=== PATIENT | male | born 1955 | race Caucasian/White ===

== ENCOUNTER 2020-12-08 16:04 | Outpatient (REF) | payer MEDICARE, SELFPAY ==
--- NOTE | ~2020-12-08 | US_ITS ---
EXAMINATION: US VENOUS ULTRASOUND WITH DOPPLER LOWER EXTREMITY, BILATERAL CLINICAL INFORMATION: Localized edema COMPARISON: 05/11/2019 TECHNIQUE: Ultrasound of the deep veins is performed from the hip to the calf with compression sonography and color and pulse Doppler assessment. Spectral analysis with color-flow imaging is performed. FINDINGS: RIGHT: There is normal venous compression and respiratory variation and augmented flow. The visualized common femoral vein, superficial femoral vein, profunda femoral vein, popliteal vein, and the trifurcation region shows no evidence of deep venous thrombosis. There is no significant popliteal fossa cyst. There is thrombophlebitis of a superficial right calf varicosity. LEFT: There is normal venous compression and respiratory variation and augmented flow. The visualized common femoral vein, superficial femoral vein, profunda femoral vein, popliteal vein, and the trifurcation region shows no evidence of deep venous thrombosis. There is no significant popliteal fossa cyst. If the patient's symptoms persist, followup ultrasound in 5 days 7 days might be of value to exclude proximal propagation from a non-visualized calf vein. US/US venous duplex LE BI IMPRESSION: No DVT demonstrated in the bilateral lower extremities. Right calf superficial thrombophlebitis involving a varicosity.
== END 2020-12-08 16:05 | disposition home or self-care (01) ==
LOC: HO.US 16:04
PROVIDERS: PCP Internal Medicine; Visit Provider Nurse Practitioner Family
DX: R60.0 Localized edema (principal)
CPT/HCPCS: 93970

== ENCOUNTER 2020-12-24 09:43 | Outpatient (REF) | payer MEDICARE, SELFPAY ==
[2020-12-24 10:38] LABS: MANUAL DIFF FLAG NO
[2020-12-24 10:44] LABS: Basophils Percent Auto 0.3 % (0-2); Eosinophils Absolute Auto 0.2 X10*3/uL (0.0-0.4); Hematocrit 47.1 % (42-52); Hemoglobin 16.3 g/dl (14.0-18.0); Imm Gran Abs Auto 0.05 X10*3/uL (0.00-0.03); Imm Gran Pct Auto 0.8 % (0.0-0.4); Lymphocytes Absolute Auto 1.3 X10*3/uL (1.2-4.9); Lymphocytes Percent Auto 19.6 % (20-40); Mean Corpuscular HGB Conc 34.6 g/dl (31.0-36.0); Mean Corpuscular Hemoglobin 31.1 pg (27.0-33.0); Mean Corpuscular Volume 89.9 fL (80-98); Mean Platelet Volume 10.2 fL (9.4-12.4); Monocytes Absolute Auto 0.6 X10*3/uL (0.1-1.2); Monocytes Percent Auto 8.9 % (2-11); Neutrophils Absolute Auto 4.3 X10*3/uL (2.0-8.3); Neutrophils Percent Auto 67.4 % (45-73); Platelet Count 228 X10*3/uL (160-400); Red Blood Count 5.24 X10*6/uL (4.60-5.80); Red Cell Distribution Width 12.8 % (11.0-16.0); White Blood Count 6.4 X10*3/uL (4.8-10.8)
[2020-12-24 11:14] LABS: Alanine Aminotransferase 24 U/L (0-40); Albumin Level 4.5 g/dL (3.5-5.0); Alkaline Phosphatase 79 U/L (39-117); Anion Gap 9 (12-20); Aspartate Amino Transferase 17 U/L (5-37); Bilirubin Total 1.1 mg/dL (0.0-1.0); Blood Urea Nitrogen 10 mg/dL (9-16); Calcium 9.3 mg/dL (8.4-10.2); Carbon Dioxide 29 mmol/L (22-29); Chloride 104 mmol/L (96-108); Cholesterol 155 mg/dL; Estimated Glomerular Filt Rate > 60; Glucose Random 89 mg/dL (60-115); HDL Cholesterol 47 mg/dL; LDL Cholesterol Calculated 96 mg/dl; Potassium 4.3 mmol/L (3.3-5.1); Sodium 138 mmol/L (135-145); Triglycerides 64 mg/dL
[2020-12-24 11:26] LABS: Prostate Specific Antigen 3.16 ng/mL (<0.05-4.0); Thyroid Stimulating Hormone 1.62 uIU/mL (0.32-4.0)
== END 2020-12-24 09:44 | disposition home or self-care (01) ==
LOC: HO.LAB 09:43
PROVIDERS: PCP Internal Medicine; Visit Provider Internal Medicine
DX: Z12.5 Encounter for screening for malignant neoplasm of prostate (principal); N40.1 Benign prostatic hyperplasia with lower urinary tract symptoms
CPT/HCPCS: 36415; 80053; 80061; 84153; 84443; 85025

== ENCOUNTER → 2021-02-10 13:40 | Outpatient (BNVA) | payer MEDICARE, SELFPAY | PROVIDERS: PCP Internal Medicine; Visit Provider Surgery Vascular Surgery | DX: I83.12 Varicose veins of left lower extremity with inflammation (principal) | CPT/HCPCS: 99202 ==

== ENCOUNTER → 2021-02-17 08:56 | Outpatient (BNVA) | payer MEDICARE, SELFPAY | PROVIDERS: PCP Internal Medicine; Referring Provider Internal Medicine; Visit Provider Urology | DX: N20.0 Calculus of kidney (principal); N40.0 Benign prostatic hyperplasia without lower urinary tract symptoms | CPT/HCPCS: 51798; 99212 ==

== ENCOUNTER 2021-03-14 08:02 | Outpatient (REF) | payer MEDICARE, SELFPAY ==
--- NOTE | ~2021-03-14 | US_ITS ---
: EXAMINATION: RIGHT and LEFT LOWER EXTREMITY VENOUS ULTRASOUND (Reflux Exam) CLINICAL INDICATION: leg pain and varicose veins. COMPARISON: None. TECHNIQUE: Color flow triplex imaging and compression Doppler was performed to evaluate both the deep and the superficial systems bilaterally. To evaluate the superficial system, the examination was performed in the upright position. Color-flow Doppler ultrasound and compression ultrasound were utilized. In addition, maneuvers were utilized to demonstrate reflux. FINDINGS: 1. DEEP VENOUS ULTRASOUND OF THE RIGHT LOWER EXTREMITY: Respiratory variation, normal compression and augmented flow are noted in the right common femoral vein as well as the right popliteal vein and there is no evidence of deep venous thrombosis at these locations. There is no evidence of reflux in the deep system in either the common femoral vein or the popliteal vein. There is no evidence of a López's cyst. 2. SUPERFICIAL ULTRASOUND WITH DOPPLER OF RIGHT LOWER EXTREMITY: The right great saphenous vein at the saphenofemoral junction measures 7 mm, at the mid thigh 2 mm, [id number] 3 mm, bcqup-[id number]-uqfl 3 mm, at mid calf 2 mm and at the ankle measures 2 mm. There is a 2.9 seconds reflux in the and 3.2 seconds reflux in mid calf demonstrated in the right great saphenous vein. There is a lateral accessory greater saphenous vein that measures 3 mm and does not demonstrate reflux. The right small saphenous vein measures 3 mm and shows no reflux. There is a environmental monitoring technician in the proximal calf that measures 3 mm and does not demonstrate reflux. There are small varicosities that do not demonstrate reflux. 3. DEEP VENOUS ULTRASOUND OF THE LEFT LOWER EXTREMITY: Respiratory variation, normal compression and augmented flow are noted in the left common femoral vein as well as the left popliteal vein and there is no evidence of deep venous thrombosis at these locations. There is no evidence of reflux in the deep system in either the common femoral vein or the popliteal vein. . There is no evidence of a López's cyst. 4. SUPERFICIAL ULTRASOUND WITH DOPPLER OF LEFT LOWER EXTREMITY: Left great saphenous vein at the saphenofemoral junction measures 6 mm, at the mid thigh 3 mm, phbzb-mmx-ehku 2 mm, jchpg-mmh-mrtq 2 mm, at mid calf 2 mm and at the ankle measures 3 mm. There is no reflux demonstrated in the left great saphenous vein. The left small saphenous vein measures 3 mm and shows no reflux. There is a environmental monitoring technician in the mid thigh that measures 1 mm and does not demonstrate reflux. There are small varicosities that do not demonstrate reflux. US/US venous duplex LE BI IMPRESSION: 1. No evidence of reflux or thrombus in the common femoral veins or popliteal veins bilaterally. 2. Right greater saphenous vein reflux. No left greater saphenous vein reflux seen.
== END 2021-03-14 08:03 | disposition home or self-care (01) ==
LOC: HO.US 08:02
PROVIDERS: Visit Provider Surgery Vascular Surgery
DX: I83.893 Varicose veins of bilateral lower extremities with other complications (principal)
CPT/HCPCS: 93970

== ENCOUNTER → 2021-03-17 09:22 | Outpatient (BNVA) | payer MEDICARE, SELFPAY | PROVIDERS: PCP Internal Medicine; Visit Provider Surgery Vascular Surgery | DX: I83.12 Varicose veins of left lower extremity with inflammation (principal) | CPT/HCPCS: 99212 ==

== ENCOUNTER 2021-06-07 11:46 | Outpatient (REF) | payer MEDICARE, SELFPAY | END 2021-06-07 11:47 | disposition home or self-care (01) | LOC: HO.WFDLDS 11:46 | PROVIDERS: Visit Provider Internal Medicine | DX: Z20.822 Contact with and (suspected) exposure to COVID-19 (principal) | CPT/HCPCS: C9803; U0003; U0005 ==

== ENCOUNTER 2021-07-25 08:08 | Outpatient (REF) | payer MEDICARE, SELFPAY ==
--- NOTE | ~2021-07-25 | US_ITS ---
EXAMINATION: US RETROPERITONEAL LIMITED (RENAL ONLY) CLINICAL INFORMATION: Calculus of kidney. COMPARISON: Renal ultrasound 01/29/2020 and 01/23/2019. CT abdomen and pelvis 03/18/2012. TECHNIQUE: Real-time imaging of the kidneys. FINDINGS: RIGHT KIDNEY: 9.0 x 5.5 x 5.2 cm (SAG x AP x TRV). The kidney is normal in size, contour, and echogenicity. Renal cortical thickness is normal. No renal calculi or hydronephrosis. There is a 1.2 cm simple cysts exophytic from the interpolar cortex. This is benign and requires no further follow-up. LEFT KIDNEY: 10.0 x 5.3 x 4.8 cm (SAG x AP x TRV). The kidney is normal in size, contour, and echogenicity. Renal cortical thickness is normal. No calculi or focal parenchymal lesions. No hydronephrosis. US/US renal BI IMPRESSION: No urinary calculi are radiographically evident. No hydronephrosis.
== END 2021-07-25 08:09 | disposition home or self-care (01) ==
LOC: HO.US 08:08
PROVIDERS: PCP Internal Medicine; Visit Provider Urology
DX: N20.0 Calculus of kidney (principal)
CPT/HCPCS: 76775

== ENCOUNTER → 2021-08-25 09:08 | Outpatient (BNVA) | payer MEDICARE, SELFPAY | PROVIDERS: PCP Internal Medicine; Visit Provider Urology | DX: N20.0 Calculus of kidney (principal); N40.0 Benign prostatic hyperplasia without lower urinary tract symptoms | CPT/HCPCS: 51798; 99212 ==

== ENCOUNTER → 2021-12-29 14:43 | Outpatient (BNVA) | payer MEDICARE, SELFPAY | PROVIDERS: PCP Internal Medicine; Referring Provider Internal Medicine; Visit Provider Surgery | DX: K42.9 Umbilical hernia without obstruction or gangrene (principal) | CPT/HCPCS: 99202 ==

== ENCOUNTER 2022-03-29 07:40 | Outpatient (REF) | payer MEDICARE, SELFPAY ==
[2022-03-29 07:54] LABS: MANUAL DIFF FLAG NO
[2022-03-29 08:30] LABS: Basophils Percent Auto 0.5 % (0-2); Eosinophils Absolute Auto 0.3 X10*3/uL (0.0-0.4); Eosinophils Percent Auto 4.1 % (0-4); Hematocrit 46.8 % (42.0-52.0); Hemoglobin 16.4 g/dl (14.0-18.0); Imm Gran Abs Auto 0.03 X10*3/uL (0.00-0.03); Imm Gran Pct Auto 0.5 % (0.0-0.4); Lymphocytes Absolute Auto 1.7 X10*3/uL (1.2-4.9); Mean Corpuscular Hemoglobin 30.8 pg (27.0-33.0); Mean Corpuscular Volume 87.8 fL (80.0-98.0); Mean Platelet Volume 9.8 fL (9.4-12.4); Monocytes Absolute Auto 0.7 X10*3/uL (0.1-1.2); Monocytes Percent Auto 10.3 % (2-11); Neutrophils Absolute Auto 3.7 x10*3/uL (2.0-8.3); Neutrophils Percent Auto 58.6 % (45-73); Platelet Count 208 X10*3/uL (160-400); Red Blood Count 5.33 X10*6/uL (4.60-5.80); Red Cell Distribution Width 12.8 % (11.0-16.0); White Blood Count 6.3 X10*3/uL (4.8-10.8)
[2022-03-29 08:48] LABS: Alanine Aminotransferase 27 U/L (0-40); Albumin Level 4.5 g/dL (3.5-5.0); Alkaline Phosphatase 70 U/L (39-117); Anion Gap 15 (12-20); Aspartate Amino Transferase 22 U/L (5-37); Bilirubin Total 1.2 mg/dL (0.0-1.0); Blood Urea Nitrogen 13 mg/dL (9-16); Calcium 8.8 mg/dL (8.4-10.2); Carbon Dioxide 26 mmol/L (22-29); Chloride 104 mmol/L (96-108); Cholesterol 184 mg/dL; Estimated Glomerular Filt Rate > 60; Glucose Fasting 89 mg/dL (60-99); HDL Cholesterol 51 mg/dL; LDL Cholesterol Calculated 118 mg/dl; Sodium 141 mmol/L (135-145); Total Protein 7.2 g/dL (6.5-8.0); Triglycerides 76 mg/dL
[2022-03-29 09:12] LABS: PSA,Total (Free>4and<10) 2.98 ng/mL (0.00-4.00); Vitamin D 25-OH Total 18.5 ng/mL (>30)
== END 2022-03-29 07:41 | disposition home or self-care (01) ==
LOC: HO.LAB 07:40
PROVIDERS: Absent Provider Urology; PCP Internal Medicine; Visit Provider Internal Medicine
DX: Z00.00 Encounter for general adult medical examination without abnormal findings (principal); Z12.5 Encounter for screening for malignant neoplasm of prostate; N40.1 Benign prostatic hyperplasia with lower urinary tract symptoms; E66.09 Other obesity due to excess calories; Z68.32 Body mass index [BMI] 32.0-32.9, adult
CPT/HCPCS: 36415; 80053; 80061; 82306; 84153; 84443; 85025

== ENCOUNTER 2022-04-03 14:20 | Outpatient (REF) | payer MEDICARE, SELFPAY ==
--- NOTE | ~2022-04-03 | US_ITS ---
EXAMINATION: US VENOUS ULTRASOUND WITH DOPPLER LOWER EXTREMITY, RIGHT CLINICAL INFORMATION: Confusion fusion of right lower leg. On aspirin. COMPARISON: None TECHNIQUE: Ultrasound of the deep veins is performed from the hip to the calf with compression sonography and color and pulse Doppler assessment. Spectral analysis with color-flow imaging is performed. FINDINGS: There is normal venous compression and respiratory variation and augmented flow. The visualized common femoral vein, superficial femoral vein, profunda femoral vein, popliteal vein, and the trifurcation region shows no evidence of deep venous thrombosis. There is no significant popliteal fossa cyst. There is a small hematoma along the right medial ankle where patient complains of pain. It measures 2.11 x 0.7 x 2.5 cm. If the patient's symptoms persist, followup ultrasound in 5 days 7 days might be of value to exclude proximal propagation from a non-visualized calf vein. US/US venous duplex LE RT IMPRESSION: No DVT demonstrated in the right lower extremity. Likely small hematoma along the right ankle where patient complains of pain.
== END 2022-04-03 14:21 | disposition home or self-care (01) ==
LOC: HO.US 14:20
PROVIDERS: PCP Internal Medicine; Visit Provider Nurse Practitioner Family
DX: S90.31XA Contusion of right foot, initial encounter (principal); M79.661 Pain in right lower leg; M79.89 Other specified soft tissue disorders; X58.XXXA Exposure to other specified factors, initial encounter; Y93.9 Activity, unspecified; Y92.9 Unspecified place or not applicable; Y99.9 Unspecified external cause status; Z79.82 Long term (current) use of aspirin
CPT/HCPCS: 93971

== ENCOUNTER → 2022-04-07 11:42 | Outpatient (BNVA) | payer MEDICARE, SELFPAY | PROVIDERS: PCP Internal Medicine; Visit Provider Urology | DX: N40.1 Benign prostatic hyperplasia with lower urinary tract symptoms (principal); R33.8 Other retention of urine; N28.1 Cyst of kidney, acquired | CPT/HCPCS: 51798; 99212 ==

== ENCOUNTER 2022-04-21 07:24 | Outpatient (REF) | payer MEDICARE, SELFPAY ==
--- NOTE | ~2022-04-21 | MR_ITS ---
EXAMINATION: MR LUMBAR SPINE WITHOUT CONTRAST CLINICAL INFORMATION: Scoliosis. Low back pain. COMPARISON: CT abdomen and pelvis 03/18/2012. TECHNIQUE: MRI of the lumbar spine was obtained using routine sequences without contrast. 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 The L3 vertebral segment has 2 left moieties that are fused. Consequently there is a pronounced leftward convex curvature centered at L2-L3. There is a 0.7 cm left lateral subluxation of L4 on L5. Slight right lateral subluxation of L1 on L2. Bridging bone fuses the L2 and L3 vertebral segments. There is loss of intervertebral disc height and T2 signal intensity at multiple levels related to disc degeneration. The tip of the conus medullaris is located at L2. No mass effect on the conus. Visualized distal cord signal intensity is normal. At T12-L1 there is a slightly bulging disc. Bilateral facet degenerative change. No canal stenosis. Neuroforaminal patency is not well assessed at this level. At L1-L2 there is a slightly bulging disc. No canal stenosis. There is partial effacement of perineural fat with no more than mild mass effect on the right L2 foraminal nerve root. At L2-L3 is no canal or neuroforaminal compromise. The nerve roots of the cauda equina are displaced to the right side of the thecal sac. No mass effect on the traversing or foraminal nerve roots. There is also no mass effect on the nerve root exiting the foraminal zone between both left L3 pedicles. At L3-L4 there is a diffusely bulging disc. No canal stenosis. No mass effect on the traversing or foraminal nerve roots. At L4-L5 there is a diffusely bulging disc. Bilateral facet degenerative change. Moderate canal stenosis. Subarticular zone narrowing causes displacement and possible compression of both traversing L5 nerve roots. There is moderate to severe compression of the right L4 foraminal nerve root and mild mass effect on the left L4 foraminal nerve root. At L5-S1 there is a diffusely bulging disc. Advanced bilateral facet degenerative change. No canal stenosis. Moderate to severe compression of the left L5 foraminal nerve root. Limited visualization of the retroperitoneal anatomy reveals no abnormal finding. 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 The left vertebral segment has to the left moieties are fused. Consequently there is a pronounced leftward convex curvature centered at L2-L3. Left lateral subluxation of L4 on L5. There is multilevel degenerative spondylosis superimposed upon these findings. A bulging disc in conjunction with facet degenerative change at L4-L5 causes moderate canal stenosis. Otherwise no canal compromise within the lumbar spine. Subarticular zone narrowing at L4-L5 causes displacement and possible compression of both traversing L5 nerve roots. There is also moderate to severe compression of the right L4 foraminal nerve root. A bulging disc in conjunction with facet degenerative change at L5-S1 causes moderate to severe compression of the left L5 foraminal nerve root.
== END 2022-04-21 07:25 | disposition home or self-care (01) ==
LOC: HO.MRI 07:24
PROVIDERS: Visit Provider Internal Medicine
DX: M41.25 Other idiopathic scoliosis, thoracolumbar region (principal); N40.1 Benign prostatic hyperplasia with lower urinary tract symptoms
CPT/HCPCS: 72148

== ENCOUNTER → 2022-07-11 09:21 | Outpatient (BNVA) | payer MEDICARE, SELFPAY | PROVIDERS: PCP Internal Medicine; Visit Provider Urology | DX: N40.1 Benign prostatic hyperplasia with lower urinary tract symptoms (principal); R33.8 Other retention of urine; R39.14 Feeling of incomplete bladder emptying; N20.0 Calculus of kidney | CPT/HCPCS: 51798; 99212 ==

== ENCOUNTER 2022-09-15 09:16 | Day surgery (SDC) | payer MEDICARE, SELFPAY ==
[2022-09-15 09:29] VITALS: BMI 27.4
[2022-09-15 09:45] VITALS: BP 145/87; PULSE 85; RESP 16; TEMP 36.6; O2SAT 97
[2022-09-15] MEDS: Lactated Ringers 1,000 ML 50 ML IVCONT (09:52)
--- NOTE | 2022-09-15 09:54 | HO.ANESPROP2 ---
[facility] Active Problems Active Problems: All Active Problems (Updated 09/15/22 @ 09:27 by Naheed Apodaca RN) Leg edema (Acute) Varicose veins of left lower extremity with inflammation (Acute) Umbilical hernia (Acute) Hematoma of right lower leg (Acute) Urinary retention with incomplete bladder emptying (Acute) Renal stones (Acute) BPH (benign prostatic hyperplasia) (Acute) Past Medical History Medical History BPH (benign prostatic hyperplasia) Diverticulosis History of pulmonary embolism Hx of peripheral vascular disease Increased prostate specific antigen (PSA) velocity Other obstructive and reflux uropathy Renal stones Scoliosis Viral pericarditis Family History Family History Father No problems noted. Mother No problems noted. Brother No problems noted. Daughter No problems noted. Daughter No problems noted. Surgical History Surgical History H/O colonoscopy H/O removal of cyst History of tonsillectomy and adenoidectomy Hx of vasectomy [place] teeth extracted History of Problems with Anesthesia: No Social History Social History Alcohol intake: current Patient Tobacco Use Status: Former Tobacco user Quit Date: as a teen Use of substances other than those prescribed or required for medical reasons: No Are you DNR?: No Advance Directives: No Advance Directives Information Provided: Yes Meds Allergies Allergy/AdvReac Type Severity Reaction Status Date / Time indomethacin [From INDOCIN] Allergy Intermediate Confusion Verified 09/15/22 09:29 Sulfa (Sulfonamide Allergy Unknown RASH Verified 09/15/22 09:29 Antibiotics) tamsulosin [Flomax] AdvReac Unknown swelling Verified 09/15/22 09:29 Active Medications: Current Medications Lactated Ringer's (Lr) 1,000 mls @ 50 mls/hr IVCONT .Q20H PAUL Last Admin: 09/15/22 09:52 Dose: 50 mls/hr Home Medications Medication Instructions Recorded Confirmed Last Taken Type aspirin 81 mg tablet,delayed 81 mg PO DAILY 04/03/22 09/15/22 Unknown History release multivitamin 1 tab PO DAILY 04/03/22 09/15/22 Unknown History ofloxacin 0.3 % eye drops 1 drp ophthalmic (eye) QID 09/14/22 09/15/22 Unknown History Exam Exam Date and Time: September 15, 2022 0954 Height,Weight and Vital Signs: Height 5 ft 2 in Weight 68.039 kg Last Vital Signs Temp 97.8 F 09/15/22 09:45 Pulse 85 09/15/22 09:45 Resp 16 09/15/22 09:45 BP 145/87 H 09/15/22 09:45 Pulse Ox 97 09/15/22 09:45 O2 Del Method 09/15/22 09:45 Airway Mallampati Class: III TM Dist: >3cm Loose/Missing/Broken Teeth: No Heart: RRR Lungs: CTA Assessment and Plan Assessment Anesthesia Assessment: Anesthesia Plan Discussed and Chart Reviewed Final Anesthetic Review History of Problems with Anesthesia: No NPO: Yes ASA Class: II Final Preanesthetic Review: Meds/Allgs Chart Reviewed, Consent Obtained/Reviewed and Anes Risks/Benef Reviewed Patient Risk: Low Procedure Risk: Low Anesthetic Plan Anesthetic Plan: MAC: Disposition: Standard PACU
--- NOTE | 2022-09-15 10:19 | MHC.SHP ---
Pre-Procedural Eval Section A Date of Service: 09/15/22 Section B Chief Complaint: screening Details of Present Illness: see H*P no changes Relevant Family History (Specify if Yes): No Relevant Social History: None Present Medications: see Short Stay Collaborative assessment Medical History: No relevant PMH History of Previous Operations: No relevant previous surgery Allergies: Allergies Allergy/AdvReac Type Severity Reaction Status Date / Time indomethacin [From INDOCIN] Allergy Intermediate Confusion Verified 09/15/22 09:29 Sulfa (Sulfonamide Allergy Unknown RASH Verified 09/15/22 09:29 Antibiotics) tamsulosin [Flomax] AdvReac Unknown swelling Verified 09/15/22 09:29 Review of Systems Sugical H&P ROS: Negative: Constitution, Cardiovascular, Respiratory, Neurological, Psychiatric, Hem-Onc, Allergic/Immunologic, Gastrointestinal, Genitourinary, Musculoskeletal, Integumentary, Endocrine and Eyes/Ears/Nose/Throat Exam Surgical H&P Exam: Normal: HEENT, Normal: Heart, Normal: Lungs, Normal: Extremities, Normal: Abdomen, Normal: Skin and Normal: Neurological Plan Diagnosis/Plan: Unchanged I have reviewed the history and physical and performed a pertinent physical examination on my patient. No changes have occurred unless specified. Time Spent With Patient Time: Total time managing care of this patient today ____ minutes.
--- NOTE | 2022-09-15 10:54 | P.BOP_ITS ---
Brief Operative Note Date of Service: 09/15/22 Pre-op diagnosis: screening Post-op diagnosis: same Procedure: colonoscopy Surgeon: Jaycob Uribe Anesthesia: MAC Was an [employer] Equipment Operator used for this Procedure?: No Estimated blood loss (mL): 5 Pathology: other Condition: stable Disposition: PACU
[2022-09-15 10:56] VITALS: BP 101/63; PULSE 81; RESP 20; TEMP 36.7; O2SAT 98
[2022-09-15 11:11] VITALS: BP 97/64; PULSE 77; RESP 20; TEMP 36.5; O2SAT 97
[2022-09-15 11:26] VITALS: BP 132/77; PULSE 78; RESP 19; TEMP 36.6; O2SAT 96
--- NOTE | 2022-09-15 11:39 | OP_ITS ---
SURGEON: Jaycob Uribe MD INDICATIONS: Colon cancer screening. PREOPERATIVE DIAGNOSIS: POSTOPERATIVE DIAGNOSIS: PROCEDURE PERFORMED: Colonoscopy to the terminal ileum with biopsy. ESTIMATED BLOOD LOSS: COMPLICATIONS: ANESTHESIA: Monitored anesthesia care. ASSISTANTS: SPECIMENS: DESCRIPTION OF PROCEDURE: The procedure was performed on 09/15/2022. A history and physical was performed. The risks and benefits of the procedure were explained to the patient, and informed consent was obtained. The patient was placed in the left lateral decubitus position. A digital rectal exam was performed and was found to be normal. The Olympus pediatric video colonoscope was introduced into the rectum and advanced to the cecum without difficulty. The cecum was identified by translumination, palpation, and identification of the ileocecal valve. Examination was performed. The scope was removed. He tolerated the procedure well and was returned to the recovery area in stable condition. FINDINGS: The terminal ileum was examined and appeared normal. The visualized colonic mucosa was normal. There were 3 polyps were identified and removed using a biopsy forceps. All were less than 10 mm. These were located in the cecum at 60 cm and at 55 cm. No other polyps were identified. Retroflexed examination showed some small internal hemorrhoids. There was mild sigmoid diverticulosis. The prep was excellent. IMPRESSION: Colon polyp. RECOMMENDATIONS: Follow up the biopsy results. MD TAYLOR Panda/SHANNAN / [id number] MTDD
[2022-09-15 11:40] VITALS: BP 132/77; PULSE 78; RESP 19; TEMP 36.6; O2SAT 96
== END 2022-09-15 12:00 | disposition home or self-care (01) ==
PROVIDERS: PCP Internal Medicine; Visit Provider Internal Medicine Gastroenterology
PROC: 0DJD8ZZ Inspection of Lower Intestinal Tract, Via Natural or Artificial Opening Endoscopic (ICD-10-PCS; CPT 45378; principal; 2022-09-15 10:20)
DX: Z12.11 Encounter for screening for malignant neoplasm of colon (principal); Z86.010 Personal history of colon polyps; D12.0 Benign neoplasm of cecum; D12.4 Benign neoplasm of descending colon; D12.5 Benign neoplasm of sigmoid colon; K57.30 Diverticulosis of large intestine without perforation or abscess without bleeding; K64.8 Other hemorrhoids; N40.1 Benign prostatic hyperplasia with lower urinary tract symptoms; R33.8 Other retention of urine; I25.10 Atherosclerotic heart disease of native coronary artery without angina pectoris; Z86.711 Personal history of pulmonary embolism; M41.9 Scoliosis, unspecified; Z79.82 Long term (current) use of aspirin; Z79.899 Other long term (current) drug therapy
CPT/HCPCS: 45380; 88305

== ENCOUNTER 2023-01-11 07:35 | Outpatient (REF) | payer MEDICARE, SELFPAY ==
--- NOTE | ~2023-01-11 | CT_ITS ---
CT SINUS WITHOUT CONTRAST CLINICAL INFORMATION: Nasal cavity polyp. Deviated nasal septum. COMPARISON: None available. TECHNIQUE: A multidetector CT acquisition of the sinuses is obtained without contrast. Multiplanar reformats are acquired and utilized for image interpretation. This CT examination was performed using dose optimization techniques as appropriate, variously including the following: *Automated exposure control *Adjustment of mA and/or kV according to patient size (this includes techniques or standardized protocols for targeted exams where dose is matched to indication/reason for exam; i.e. extremities or head) *Use of iterative reconstruction technique FINDINGS: There is a single completely opacified posterior right ethmoid air cell. There is mild mucosal thickening throughout the remaining paranasal sinuses. There is mild mucosal thickening within the inferior maxillary sinuses bilaterally. The remaining paranasal sinuses are clear. Major sinus strange pathways are maintained. There is rightward deviation of the nasal septum. The right fovea ethmoidalis is 3 mm deeper than the left side. Olfactory grooves are symmetric in depth. Bony orbits are intact. Internal carotid arteries are well covered with bone. Moderate right mastoid effusion. Left mastoid air cells are clear. TMJs are unremarkable. No periapical disease. No significant soft tissue findings. CT/CT sinus wo IV con IMPRESSION: - There is a single completely opacified posterior right ethmoid air cell and there is additional mild sinus mucosal disease as described. - There is rightward deviation of the nasal septum. - Moderate right mastoid effusion.
== END 2023-01-11 07:36 | disposition home or self-care (01) ==
LOC: HO.CT 07:35
PROVIDERS: PCP Internal Medicine; Visit Provider Otolaryngology
DX: J33.0 Polyp of nasal cavity (principal); J34.2 Deviated nasal septum
CPT/HCPCS: 70486

== ENCOUNTER → 2023-01-12 08:50 | Outpatient (BNVA) | payer MEDICARE, SELFPAY | PROVIDERS: PCP Internal Medicine; Visit Provider Urology | DX: N40.1 Benign prostatic hyperplasia with lower urinary tract symptoms (principal); R33.8 Other retention of urine; R39.14 Feeling of incomplete bladder emptying | CPT/HCPCS: 51798; 99212 ==

== ENCOUNTER 2023-05-01 12:09 | Outpatient (REF) | payer MEDICARE, SELFPAY ==
[2023-05-01 12:31] LABS: MANUAL DIFF FLAG NO
[2023-05-01 12:56] LABS: Basophils Percent Auto 0.3 % (0-2); Eosinophils Absolute Auto 0.2 X10*3/uL (0.0-0.4); Eosinophils Percent Auto 2.7 % (0-4); Hematocrit 47.4 % (42.0-52.0); Hemoglobin 16.6 g/dl (14.0-18.0); Imm Gran Abs Auto 0.04 X10*3/uL (0.00-0.03); Imm Gran Pct Auto 0.6 % (0.0-0.4); Lymphocytes Absolute Auto 1.2 X10*3/uL (1.2-4.9); Lymphocytes Percent Auto 18.8 % (20-40); Mean Corpuscular Hemoglobin 31.4 pg (27.0-33.0); Mean Corpuscular Volume 89.6 fL (80.0-98.0); Mean Platelet Volume 10.3 fL (9.4-12.4); Monocytes Absolute Auto 0.6 X10*3/uL (0.1-1.2); Monocytes Percent Auto 9.1 % (2-11); Neutrophils Absolute Auto 4.5 x10*3/uL (2.0-8.3); Neutrophils Percent Auto 68.5 % (45-73); Platelet Count 203 X10*3/uL (160-400); Red Blood Count 5.29 X10*6/uL (4.60-5.80); White Blood Count 6.6 X10*3/uL (4.8-10.8)
[2023-05-01 14:15] LABS: Alanine Aminotransferase 18 U/L (0-40); Albumin Level 4.4 g/dL (3.5-5.0); Alkaline Phosphatase 65 U/L (39-117); Anion Gap 12 (12-20); Aspartate Amino Transferase 18 U/L (5-37); Bilirubin Total 1.6 mg/dL (0.0-1.0); Blood Urea Nitrogen 12 mg/dL (9-16); Calcium 9.2 mg/dL (8.4-10.2); Carbon Dioxide 27 mmol/L (22-29); Chloride 105 mmol/L (96-108); Cholesterol 166 mg/dL (<200); Estimated Glomerular Filt Rate > 60; Glucose Fasting 83 mg/dL (60-99); HDL Cholesterol 53 mg/dL (>40); LDL Cholesterol Calculated 99 mg/dL (<100); Potassium 4.2 mmol/L (3.3-5.1); Sodium 140 mmol/L (135-145); Total Protein 7.1 g/dL (6.5-8.0); Triglycerides 73 mg/dL (<150)
[2023-05-01 14:36] LABS: Thyroid Stimulating Hormone 1.39 uIU/mL (0.32-4.0); Vitamin D 25-OH Total 30.9 ng/mL (>30)
== END 2023-05-01 12:10 | disposition home or self-care (01) ==
LOC: HO.LAB 12:09
PROVIDERS: PCP Internal Medicine; Visit Provider Internal Medicine
DX: M41.25 Other idiopathic scoliosis, thoracolumbar region (principal); E55.9 Vitamin D deficiency, unspecified; N40.1 Benign prostatic hyperplasia with lower urinary tract symptoms; E66.09 Other obesity due to excess calories; Z12.5 Encounter for screening for malignant neoplasm of prostate
CPT/HCPCS: 36415; 80053; 80061; 82306; 84153; 84443; 85025

== ENCOUNTER 2023-07-13 09:32 | Outpatient (AMB) | payer MEDICARE, SELFPAY ==
--- NOTE | 2023-07-13 09:35 | A.OFFVIS_ITS ---
Intake Intake Visit Reasons: 6m/PVR Intake Note: Patient is Present for Follow Up Urology Medication: rapaflo Antibiotic Allergies: Sulfa Blood Thinners: Aspirin PVR: 568 Compliants: Allergies indomethacin [From INDOCIN] Allergy (Intermediate, Verified 07/13/23 09:36) Confusion Sulfa (Sulfonamide Antibiotics) Allergy (Unknown, Verified 07/13/23 09:36) RASH tamsulosin [Flomax] Adverse Reaction (Unknown, Verified 07/13/23 09:36) swelling HPI HPI Comments History of Present Illness Details Adan is a very pleasant male. He is a patient of Dr. Bennett. He is seen for following urologic conditions. - BPH - nephrolithiasis Bladder residual stable and high - associated with constipation Use add Rapaflo periodically to assist with bladder emptying 6 month bladder surveillance Things have improved with physical therapy He understands his bladder has high residual than typical. CIC has been discussed previously. Recent MRI on spine shows scoliosis with compression in the L3 through L5 range. Is back undergoing chiropractic manipulation with some improvement in bladder emptying. PVR today 550 cc Lower urinary tract symptoms longstanding management previous prostate procedures had Botox to prostate 2014 - for urge/frequency has a consistently high bladder residual does feels his stream is adequate PVR 03/02 700, 09/03 750 PSA 01/30 2.9, 12/31 3.2, 04/03 3.0 continues to use Rapaflo as needed on a p.r.n. basis for 3-4 days Nephrolithiasis previously renal cyst on ultrasound Imaging - 08/02 renal ultrasound left cyst 1.5 c m continue surveillance PFSH Medical History Hx of peripheral vascular disease Viral pericarditis Diverticulosis Scoliosis BPH (benign prostatic hyperplasia) Other obstructive and reflux uropathy Renal stones History of pulmonary embolism Increased prostate specific antigen (PSA) velocity Surgical History H/O colonoscopy Hx of vasectomy H/O removal of cyst [place] teeth extracted History of tonsillectomy and adenoidectomy Family History Father No problems noted. Mother No problems noted. Brother No problems noted. Daughter No problems noted. Daughter No problems noted. Social History Alcohol intake: current Patient Tobacco Use Status: Former Tobacco user Quit Date: as a teen Review of Systems Const Denies chills and Denies fever(s) Card Reports no additional complaints and Denies syncope Resp Denies cough GI Denies abdominal pain and Denies heartburn Reports as per HPI and Denies change in libido Neuro Denies syncope Psych Denies change in libido Endo Denies change in libido Physical Exam Const General: cooperative, healthy appearing, comfortable and no acute distress Orientation/consciousness: patient oriented x3 HEENT Face and sinus: Yes normal facial exam Mouth: moist mucous membranes Neck Neck: Yes normal visual inspection, Yes full ROM and Yes trachea midline Chest Chest palpation & inspection: normal inspection of the chest Resp Effort & Inspection: normal respiratory effort, able to speak in complete sentences and no respiratory distress GI Inspection: Yes normal to inspection Back/Spine/Pelvis Cervical Spine: normal cervical lordosis Thoracic/Lumbar Spine: thoracic and lumbar spine normal to inspection Skin General skin exam: no rashes or lesions noted Neuro General: patient oriented x3, gait normal, tone normal and moves all extremities Extrem General: Yes normal to inspection and Yes capillary refill normal Office Procedures Post Void Residual Post Residual Void Post Void Residual (PVR): [id number] Void Residual by ultrasound Results AMB Urinalysis, Automated UA Leukoctes 70 Rocio/uL Last Edit by EFRAIN Ramos on 07/13/23 09:44 UA Nitrite Negative Last Edit by EFRAIN Ramos on 07/13/23 09:44 UA Urobilinogen 0.2 mg/dL Last Edit by EFRAIN Ramos on 07/13/23 09:4 4 UA Protein 0 mg/dL Last Edit by EFRAIN Ramos on 07/13/23 09:44 UA pH 6.0 Last Edit by EFRAIN Ramos on 07/13/23 09:44 UA Blood 0 Adilson/uL Last Edit by EFRAIN Ramos on 07/13/23 09:44 UA Specific [place] 1.015 Last Edit by EFRAIN Ramos on 07/13/23 09: 44 UA Ketone Negative Last Edit by EFRAIN Ramos on 07/13/23 09:44 UA Bilirubin 0 mg/dL Last Edit by EFRAIN Ramos on 07/13/23 09:44 UA Glucose 0 mg/dL Last Edit by EFRAIN Ramos on 07/13/23 09:44 Results Reviewed Results Reviewed: Laboratory Last Values Urine pH (Auto) 6.0 07/13/23 09:36 Specific [place] (Auto) 1.015 07/13/23 09:36 Urine Protein (Auto) 0 mg/dL 07/13/23 09:36 Glucose (UA)(Auto) 0 mg/dL 07/13/23 09:36 Urine Ketones (Auto) Negative 07/13/23 09:36 Urine Blood (Auto) 0 Adilson/uL 07/13/23 09:36 Urine Nitrite (Auto) Negative 07/13/23 09:36 Urine Bilirubin (Auto) 0 mg/dL 07/13/23 09:36 Urine Urobilinogen (Auto) 0.2 mg/dL 07/13/23 09:36 Leukocyte Esterase (Auto) 70 Rocio/uL 07/13/23 09:36 Assessment & Plan Assessment & Plan (1) Urinary retention with incomplete bladder emptying: Code(s): R33.9 - Retention of urine, unspecified Plan 6 month follow-up PVR Orders: Orders AMB Urinalysis Automated Today Z13.9 - Encounter for screening, unspecified AMB Post Void Residual by ultrasound Today N40.0 - Benign prostatic hyperplasia without lower urinary tract symptoms Patient Instructions: Imaging studies, laboratory and physical exam results were discussed and reviewed in detail. No major barriers to patient understanding were identified. An opportunity to ask questions regarding the treatment plan was provided. All questions were answered. The patient expressed understanding and agreement with the above treatment plan. The patient is aware they should contact our office by phone for worsening of their current condition or the appearance of new urologic symptoms. Compliance is encouraged with any medications and followup testing that is ordered. It is a privilege to participate in the urologic care of your patient. If you have any questions or concerns regarding treatment for the above conditions, or other urologic issues, please do not hesitate to contact me. The office telephone contact is [phone]. This note is constructed using voice recognition software. While every effort has been made to ensure accuracy clinical technician errors may have been included. Yours sincerely, Dr Fernando Oconnor MD, [facility] - Urology Providers of Expert, Compassionate Care for the Genitourinary System Coding Level of Care Code Est Pt Level 3 (47388) Diagnoses Urinary retention with incomplete bladder emptying R33.9 CPT Codes Post Residual Void - PVR CPT Code: 65864-Srch Void Residual by ultrasound ([id number])
== END 2023-07-13 10:03 | disposition home or self-care (01) ==
LOC: HO.HUSH 09:32
PROVIDERS: PCP Internal Medicine; Visit Provider Urology
DX: Z13.9 Encounter for screening, unspecified (principal); R33.9 Retention of urine, unspecified
CPT/HCPCS: 99213

== ENCOUNTER → 2023-07-13 09:32 | Outpatient (BNVA) | payer MEDICARE, SELFPAY | PROVIDERS: PCP Internal Medicine; Visit Provider Urology | DX: R33.9 Retention of urine, unspecified (principal) | CPT/HCPCS: 51798; 81003; 99212 ==

== ENCOUNTER 2023-08-16 08:00 | Outpatient (RCR) | payer MEDICARE, SELFPAY | END 2023-09-21 10:15 | disposition home or self-care (01) | LOC: HO.PTWFD 08:00 | PROVIDERS: PCP Internal Medicine; Visit Provider Internal Medicine | DX: M54.59 Other low back pain (principal) | CPT/HCPCS: 97110; 97140; 97162 ==

== ENCOUNTER 2023-08-27 16:59 | Emergency (ER) | payer MEDICARE, SELFPAY ==
--- NOTE | ~2023-08-27 | XR_ITS ---
EXAMINATION: XR ABDOMEN KUB CLINICAL INDICATION: Pain COMPARISON: None available. TECHNIQUE: AP view of the abdomen. FINDINGS: There is scattered stool and gas seen throughout the colon without distention. No organomegaly. There is moderate rotolevoscoliosis thoracolumbar spine. No aggressive lytic or sclerotic process seen. XR/XR KUB IMPRESSION: 1. Mild constipation. No acute process seen. 2. Moderate rotolevoscoliosis thoracolumbar spine. .
[2023-08-27 18:04] VITALS: BP 189/103; PULSE 80; RESP 18; TEMP 37.1; O2SAT 97; BMI 31.1
--- NOTE | 2023-08-27 18:04 | ED_ITS ---
HPI - Male Genitourinary General Chief complaint: Urogenital-Male Stated complaint: urinary retention,high bp Time Seen by Provider: 08/27/23 18:46 Source: patient, RN notes reviewed and old records reviewed Mode of arrival: ambulatory Limitations: no limitations History of Present Illness HPI Narrative: 68-year-old male presents for evaluation of ?urinary retention. ? 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 Oconnor He takes Sildosin 4mg as needed for urinary retention He reports at baseline takes it approximately once every 3-4 weeks He reports that he took a dose , 2 doses Sunday and 1 dose this morning with minimal improvement in his symptoms He has been able to urinate very small amounts a few times today but still feels that he has a lot of pressure He also complains of some constipation. He reports that he had 2 bowel movements today but feels that they were small Patient had a lumbar spine MRI in April of 2022 Related Data Home Medications Medication Instructions Recorded Confirmed aspirin 81 mg tablet,delayed 81 mg PO DAILY 04/03/22 09/15/22 release multivitamin 1 tab PO DAILY 04/03/22 09/15/22 ofloxacin 0.3 % eye drops 1 drp ophthalmic (eye) QID 09/14/22 09/15/22 Previous Rx's Medication Instructions Recorded silodosin 4 mg capsule (Rapaflo) 4 mg PO DAILY 90 days #90 caps 01/12/23 Allergies Allergy/AdvReac Type Severity Reaction Status Date / Time indomethacin [From INDOCIN] Allergy Intermediate Confusion Verified 08/27/23 18:04 Sulfa (Sulfonamide Allergy Unknown RASH Verified 08/27/23 18:04 Antibiotics) tamsulosin [Flomax] AdvReac Unknown swelling Verified 08/27/23 18:04 Review of Systems 2 Constitutional: Constitutional: Denies chills and Denies fever(s) Eyes: Eyes: Denies blurry vision Cardiovascular: Cardiovascular: Denies chest pain Gastrointestinal: Gastrointestinal: Reports abdominal pain, Denies nausea and Denies vomiting Genitourinary: Genitourinary: Reports difficulty urinating Musculoskeletal: Musculoskeletal: Denies back pain Integumentary/Breasts: Skin/Breast: Denies rash PMFSH Past Medical History Onset Date is defined in the Problem List Problems that require an onset date and time if occurred within 24 hrs of arrival to the ED Aortic Dissection and Rupture; Neurologic impairment; Cardiopulmonary Arrest; Endotracheal Intubation; Insertion or Replacement of Mechanical Circulatory Assist Device Medical History Hx of peripheral vascular disease Viral pericarditis Diverticulosis Scoliosis BPH (benign prostatic hyperplasia) Other obstructive and reflux uropathy Renal stones History of pulmonary embolism Increased prostate specific antigen (PSA) velocity Surgical History H/O colonoscopy Hx of vasectomy H/O removal of cyst [place] teeth extracted History of tonsillectomy and adenoidectomy Family History Family History Father No problems noted. Mother No problems noted. Brother No problems noted. Daughter No problems noted. Daughter No problems noted. Social History Social History Alcohol intake: current Patient Tobacco Use Status: Former Tobacco user Quit Date: as a teen Advance Directives: No Advance Directives Information Provided: No Physical Exam 2 Vital Signs: Vital Signs: Last Vital Signs Temp 98.3 F 08/27/23 19:49 Pulse 70 08/27/23 19:49 Resp 18 08/27/23 19:49 BP 174/98 H 08/27/23 19:49 Pulse Ox 97 08/27/23 19:49 O2 Del Method Room Air 08/27/23 19:49 BMI result Body Mass Index 31.1 Const: General: healthy appearing, comfortable, no acute distress, alert and awake Nutritional Appearance: well nourished Orientation/consciousness: p atient oriented x3 HEENT: Head: Yes normocephalic and Yes atraumatic Eyes: Eyelids: Yes eyelids normal Conjunctivae: conjunctivae normal S clerae: sclerae normal Corneas: corneas normal Pupils: Equal, round and reactive pupils present EOM: EOMs intact bilaterally Neck: Neck: Yes full ROM Resp: Effort & Inspection: normal respiratory effort, able to speak in complete sentences and not labored GI: Inspection: Yes distended Palpation (GI): Soft to palpation, not firm, nontender, no guarding and not rigid Auscultation: normoactive bowel sounds Skin: General skin exam: elasticity normal Neuro: General: patient oriented x3 Cranial nerves: Yes Equal, round and reactive pupils present and Yes Bilaterally intact EOM present Cognition (Neuro): normal cognition Course Course Course Narrative: RME:?68 yo male hx congenital scoliosis, L5 vertebral compression, BPH with urinary retention on silodosin here for eval of elevated BP. BP 198/106 at home. No hx of HTN, not on BP meds. Takes the silodosin on prn basis. feels as though has urinary retention is contributing to his high BP. has not discussed this with his urologist or PCP. last normal urination . now urinating small amounts. baseline residual typically 500 ml. plan for labs, UA, bladder scan + PVR Full HPI, ROS and PE to be performed by the primary ED provider. Reevaluation(s) Reevaluation #1: Patient has a total of almost 2 L of urine drained in his Singh catheter. He does not want to go home with the Singh catheter. He is adamant he would like it removed. I explained that he will likely return with worsening urinary retention if it is pulled. Patient reports that he understands these risks and feels as though once his bladder is drained he will be able to resume his normal urine output. He understands that he may have acute urinary retention again and is willing to return to the hospital at that time if it does happen. I strongly encouraged him to reconsider and be discharged with a Singh catheter and the patient still states he would like to have it removed. The Singh catheter will be pulled and the patient was given strict return precautions to return to the ER Time: 22:47 Medical Decision Making Medical Decision Making [facility] Narrative: 68-year-old male presents for evaluation of urinary retention. He reports chronic issues that have been exacerbated over the last few days. He has had no relief with his p.r.n. silodosin. A post void bladder scan showed over 800 cc of urine retained in the bladder. A Singh catheter was inserted which had over 1500 cc of urine drained. At this point the catheter was clamped. UA is pending, a KUB was ordered to evaluate for constipation. The patient's Singh catheter was initially draining clear, yellow urine. After about 1 L, it turned pink with some clots. Given that the urine was initially clear and then developed bleeding, I do not feel this was related to traumatic insertion, as that would typically show blood initially and then clearing. A blood clot may have been the cause of the worsening urinary retention. Patient denies any numbness, tingling, weakness. Doubt cauda equina as this is more chronic issues. The patient denies any recent back injuries. Differential Diagnosis Differential Diagnoses: The differential diagnosis associated with the presentation includes Chronic urinary retention UTI Obstructive uropathy Cauda equina syndrome less likely Bladder mass Lab Data 08/27/23 18:56 08/27/23 18:56 Labs: Lab Results 08/27/23 08/27/23 Range/Units 18:56 20:13 WBC 7.6 (4.8-10.8) X10*3/uL RBC 4.88 (4.60-5.80) X10*6/uL Hgb 14.9 (14.0-18.0) g/dl Hct 42.9 (42.0-52.0) % MCV 87.9 (80.0-98.0) fL MCH 30.5 (27.0-33.0) pg MCHC 34.7 (31.0-36.0) g/dl RDW 12.9 (11.0-16.0) % Plt Count 219 (160-400) X10*3/uL MPV 9.7 (9.4-12.4) fL Immature Gran % (Auto) 0.3 (0.0-0.4) % Neut % (Auto) 80.4 H (45-73) % Lymph % (Auto) 11.7 L (20-40) % [place] % (Auto) 6.4 (2-11) % Eos % (Auto) 0.9 (0-4) % Baso % (Auto) 0.3 (0-2) % Lymph # (Auto) 0.9 L (1.2-4.9) X10*3/uL [place] # (Auto) 0.5 (0.1-1.2) X10*3/uL Eos # (Auto) 0.1 (0.0-0.4) X10*3/uL Baso # (Auto) 0.0 (0.0-0.2) X10*3/uL Abs Immat Gran (auto) 0.02 (0.00-0.03) X10*3/uL Absolute Neuts (auto) 6.1 (2.0-8.3) x10*3/uL Absolute Nucleated RBC 0.000 (0.0-0.012) X10*3/uL Nucleated RBC % (auto) 0.0 (0.0-0.2) /100WBC Sodium 143 (135-145) mmol/L Potassium 4.1 (3.3-5.1) mmol/L Chloride 104 (96-108) mmol/L Carbon Dioxide 30 H (22-29) mmol/L Anion Gap 13 (12-20) BUN 12 (9-16) mg/dL Creatinine 1.06 (0.5-1.4) mg/dL Estim Creat Clear Calc 56.9 Estimated GFR > 60 Random Glucose 104 (60-115) mg/dL Calcium 10.1 D (8.4-10.2) mg/dL Magnesium 2.0 (1.6-2.6) mg/dL Urine Color Yellow Urine Appearance Clear Urine pH 6.5 (5.0-9.0) Ur Specific [place] <= 1.005 (1.005-1.025) Urine Protein Negative (Neg-Trace) mg/dL Urine Glucose (UA) Negative (Negative) mg/dL Urine Ketones Negative (Negative) mg/dL Urine Blood Small (1+) H (Negative) Urine Nitrite Negative (Negative) Ur Leukocyte Esterase Negative (Negative) Urine RBC 0-2 (0-2) /HPF Urine WBC 0-5 (0-5) /HPF Ur Squamous Epith Cells 0-2 (0-2) /HPF Urine Bacteria None Seen (None Seen) Hyaline Casts 0-2 (0-2) /LPF Independent Interpretation I performed an independent interpretation of an: Plain X-Ray (Significant scoliosis noted) Discharge Plan Discharge Clinical Impression: Acute on chronic urinary retention Patient Disposition: Home, Self-Care Instructions: Urinary Retention in Men (ED) Additional Instructions: Your blood work was reassuring. Your x-ray showed mild constipation and moderate rotolevoscoliosis Your urine did not appear infected but did have some blood in it Recommend that you call Urology tomorrow morning to schedule follow-up as soon as possible You will likely need a cystoscopy In the meantime since you requested the Singh catheter be removed, if your urinary retention worsens, return to the ER for additional catheterization Prescriptions: No Action ofloxacin 0.3 % drops 1 drp ophthalmic (eye) QID aspirin 81 mg tablet,delayed release (DR/EC) 81 mg PO DAILY multivitamin Tablet 1 tab PO DAILY silodosin [Rapaflo] 4 mg capsule 4 mg PO DAILY 90 Days Qty: 90 1RF Rx Instructions: must administer with a meal/food Referrals: Fernando Oconnor MD [Physician] - (Acute on chronic urinary retention. Hematuria. Patient adamantly refused to be discharged with Singh. High risk for returning with retention)
[2023-08-27 19:00] LABS: MANUAL DIFF FLAG NO
[2023-08-27 19:02] LABS: Basophils Percent Auto 0.3 % (0-2); Eosinophils Absolute Auto 0.1 X10*3/uL (0.0-0.4); Eosinophils Percent Auto 0.9 % (0-4); Hematocrit 42.9 % (42.0-52.0); Hemoglobin 14.9 g/dl (14.0-18.0); Imm Gran Abs Auto 0.02 X10*3/uL (0.00-0.03); Imm Gran Pct Auto 0.3 % (0.0-0.4); Lymphocytes Absolute Auto 0.9 X10*3/uL (1.2-4.9); Lymphocytes Percent Auto 11.7 % (20-40); Mean Corpuscular HGB Conc 34.7 g/dl (31.0-36.0); Mean Corpuscular Hemoglobin 30.5 pg (27.0-33.0); Mean Corpuscular Volume 87.9 fL (80.0-98.0); Mean Platelet Volume 9.7 fL (9.4-12.4); Monocytes Absolute Auto 0.5 X10*3/uL (0.1-1.2); Monocytes Percent Auto 6.4 % (2-11); Neutrophils Absolute Auto 6.1 x10*3/uL (2.0-8.3); Neutrophils Percent Auto 80.4 % (45-73); Platelet Count 219 X10*3/uL (160-400); Red Blood Count 4.88 X10*6/uL (4.60-5.80); Red Cell Distribution Width 12.9 % (11.0-16.0); White Blood Count 7.6 X10*3/uL (4.8-10.8)
[2023-08-27 19:17] LABS: Anion Gap 13 (12-20); Blood Urea Nitrogen 12 mg/dL (9-16); Calcium 10.1 mg/dL (8.4-10.2); Carbon Dioxide 30 mmol/L (22-29); Chloride 104 mmol/L (96-108); Creatinine Clr Calc Pharmacy 56.9; Estimated Glomerular Filt Rate > 60; Glucose Random 104 mg/dL (60-115); Potassium 4.1 mmol/L (3.3-5.1); Sodium 143 mmol/L (135-145)
[2023-08-27 19:49] VITALS: BP 174/98; PULSE 70; RESP 18; TEMP 36.8; O2SAT 97
[2023-08-27 20:30] LABS: Appearance Urine Clear; Color Urine Yellow; Glucose Urine UA Negative (Negative); Leukocyte Esterase Urine Negative (Negative); Nitrite Urine Negative (Negative); PH 6.5 (5.0-9.0); Specific Gravity - Urine <= 1.005 (1.005-1.025); UMIC TRIGGER UACC YES; Urine Blood Small (1+) (Negative); Urine Ketones Negative (Negative); Urine Protein Negative (Neg-Trace)
[2023-08-27 20:47] LABS: Bacteria Urine None Seen (None Seen); Hyaline Casts Urine 0-2 /LPF (0-2); RBC Urine 0-2 /HPF (0-2); Squamous Epithelial Cell Urine 0-2 /HPF (0-2); WBC Urine 0-5 /HPF (0-5)
--- NOTE | 2023-08-27 20:48 | PC.NURSE ---
Assumed care of pt at approximately 1900. Pt ambulated to bathroom. PVR >800ml. Discussed with John KAY. Verbal order for Singh. Singh placed, pt tolerated well. Initial output 1200ml clear yellow urine. Small clot visualized by John and pink urine drained approximately 300ml. Singh clamped at this time. UA sent to lab. Plan of care on going.
--- NOTE | 2023-08-27 22:18 | PC.NURSE ---
Pt reporting some bladder discomfort. unclamped catheter. Cath drained 400ml +300ml in bag from prior to clamping urine. Urine pink with a clot.
== END 2023-08-27 23:31 | disposition home or self-care (01) ==
PROVIDERS: Physician Assistant Medical; Emergency Provider Emergency Medicine; PCP Internal Medicine
DX: R33.9 Retention of urine, unspecified (principal); R10.2 Pelvic and perineal pain; I10 Essential (primary) hypertension; Z79.899 Other long term (current) drug therapy
CPT/HCPCS: 36415; 51702; 74018; 80048; 81001; 83735; 85025; 99282; 99283

== ENCOUNTER 2023-08-28 13:40 | Outpatient (AMB) | payer MEDICARE, SELFPAY ==
--- NOTE | 2023-08-28 13:42 | MHC.OFFVIS ---
Intake Intake Visit Reasons: discuss retention Intake Note: Patient is Present for Telephone Follow Up ER/Retention Urology Med: Silodosin Antibiotic Allergy: Sulfa Antibiotics Blood Thinner: Aspirin Allergies indomethacin [From INDOCIN] Allergy (Intermediate, Verified 08/28/23 13:43) Confusion Sulfa (Sulfonamide Antibiotics) Allergy (Unknown, Verified 08/28/23 13:43) RASH tamsulosin [Flomax] Adverse Reaction (Unknown, Verified 08/28/23 13:43) swelling HPI HPI Comments History of Present Illness Details Adan is a very pleasant male. He is a patient of Dr. Bennett. He is seen for following urologic conditions. - lower urinary tract symptoms - nephrolithiasis - urinary retention Telemedicine Evaluation 15 min Consultation [employer] Nishant Video attempted Was seen in emergency room last night Had difficulty voiding secondary to constipation and diet variation during vacation 1500 cc drained from bladder Has been urinating Interested in learning CIC in order to maintain bladder Recommend initial management CIC daily in the evening. This will be indefinite duration. Bladder residual stable and high - associated with constipation Use add Rapaflo periodically to assist with bladder emptying 6 month bladder surveillance He understands his bladder has high residual than typical. CIC has been discussed previously. Recent MRI on spine shows scoliosis with compression in the L3 through L5 range. Is back undergoing chiropractic manipulation with some improvement in bladder emptying. PVR previously 550 cc Lower urinary tract symptoms Longstanding management Previous prostate procedures Had Botox to prostate 2014 - for urge/frequency Has a consistently high bladder residual Does feels his stream is adequate PVR 03/02 700, 09/03 750 PSA 01/30 2.9, 12/31 3.2, 04/03 3.0 continues to use Rapaflo as needed on a p.r.n. basis for 3-4 days Nephrolithiasis previously renal cyst on ultrasound Imaging - 08/02 renal ultrasound left cyst 1.5 cm continue surveillance PFSH Medical History Hx of peripheral vascular disease Viral pericarditis Diverticulosis Scoliosis BPH (benign prostatic hyperplasia) Other obstructive and reflux uropathy Renal stones History of pulmonary embolism Increased prostate specific antigen (PSA) velocity Surgical History H/O colonoscopy Hx of vasectomy H/O removal of cyst [place] teeth extracted History of tonsillectomy and adenoidectomy Family History Father No problems noted. Mother No problems noted. Brother No problems noted. Daughter No problems noted. Daughter No problems noted. Social History Alcohol intake: current Patient Tobacco Use Status: Former Tobacco user Quit Date: as a teen Review of Systems Const All systems reviewed & are unremarkable except as noted in HPI and below Reports no additional complaints Resp Reports no additional complaints GI Reports no additional complaints Reports as per HPI Musc Reports no additional complaints Physical Exam Telemedicine evaluation Appropriate responses Regular breathing rate and rhythm HEENT Head: Yes normal to inspection Ears: hearing grossly normal bilaterally Eyes General: appearance normal, both eyes and all related structures Neck Neck: Yes normal visual inspection Chest Chest palpation & inspection: normal inspection of the chest Resp Effort & Inspection: normal respiratory effort and able to speak in complete sentences Assessment & Plan Assessment & Plan (1) Urinary retention with incomplete bladder emptying: Code(s): R33.9 - Retention of urine, unspecified Plan CIC teaching Medications: Refilled silodosin (Rapaflo) must administer with a meal/food 4 mg PO DAILY 90 days 90 caps 1RF N40.0 - Benign prostatic hyperplasia without lower urinary tract symptoms Patient Instructions: Imaging studies, laboratory and physical exam results were discussed and reviewed in detail. No major barriers to patient understanding were identified. An opportunity to ask questions regarding the treatment plan was provided. All questions were answered. The patient expressed understanding and agreement with the above treatment plan. The patient is aware they should contact our office by phone for worsening of their current condition or the appearance of new urologic symptoms. Compliance is encouraged with any medications and followup testing that is ordered. It is a privilege to participate in the urologic care of your patient. If you have any questions or concerns regarding treatment for the above conditions, or other urologic issues, please do not hesitate to contact me. The office telephone contact is [phone]. This note is constructed using voice recognition software. While every effort has been made to ensure accuracy sld educational aide errors may have been included. Yours sincerely, Dr Fernando Oconnor MD, ED [facility] - Urology Providers of Expert, Compassionate Care for the Genitourinary System Telehealth Telehealth Location of provider rendering services: practice address Location of patient: address on file Patient Identification confirmed using: Name, : Yes Telehealth method: video Patient verbally consented to treatment: Yes Patient verbally consented to billing insurance company: Yes Patient informed of any privacy concerns related to visit: Yes Coding Level of Care Code Tele Est Pt Level 4 (75194) Diagnoses Urinary retention with incomplete bladder emptying R33.9
== END 2023-08-28 14:20 | disposition home or self-care (01) ==
LOC: HO.HUSH 13:40
PROVIDERS: PCP Internal Medicine; Visit Provider Urology
DX: R33.9 Retention of urine, unspecified (principal)
CPT/HCPCS: 99213

== ENCOUNTER → 2023-08-28 13:40 | Outpatient (BNVA) | payer MEDICARE, SELFPAY | PROVIDERS: PCP Internal Medicine; Visit Provider Urology ==

== ENCOUNTER → 2023-08-29 08:43 | Outpatient (BNVA) | payer MEDICARE, SELFPAY | PROVIDERS: PCP Internal Medicine; Visit Provider Urology | DX: Z71.89 Other specified counseling (principal) | CPT/HCPCS: 51798 ==

== ENCOUNTER 2023-10-24 21:10 | Emergency (ER) | payer MEDICARE, SELFPAY ==
[2023-10-24 21:33] VITALS: BP 212/113; PULSE 93; RESP 17; TEMP 36.7; O2SAT 97; BMI 31.9
--- NOTE | 2023-10-24 21:34 | ED_ITS ---
HPI - General Adult General Chief complaint: General Medical Stated complaint: acute urinary retention, high bp Time Seen by Provider: 10/24/23 22:20 Related Data Home Medications Medication Instructions Recorded Confirmed aspirin 81 mg tablet,delayed 81 mg PO DAILY 04/03/22 09/15/22 release multivitamin 1 tab PO DAILY 04/03/22 09/15/22 ofloxacin 0.3 % eye drops 1 drp ophthalmic (eye) QID 09/14/22 09/15/22 Previous Rx's Medication Instructions Recorded silodosin 4 mg capsule (Rapaflo) 4 mg PO DAILY 90 days #90 caps 08/28/23 Allergies Allergy/AdvReac Type Severity Reaction Status Date / Time indomethacin [From INDOCIN] Allergy Intermediate Confusion Verified 10/24/23 21:33 Sulfa (Sulfonamide Allergy Unknown RASH Verified 10/24/23 21:33 Antibiotics) tamsulosin [Flomax] AdvReac Unknown swelling Verified 10/24/23 21:33 PMFSH Past Medical History Medical History Hx of peripheral vascular disease Viral pericarditis Diverticulosis Scoliosis BPH (benign prostatic hyperplasia) Other obstructive and reflux uropathy Renal stones History of pulmonary embolism Increased prostate specific antigen (PSA) velocity Surgical History H/O colonoscopy Hx of vasectomy H/O removal of cyst [place] teeth extracted History of tonsillectomy and adenoidectomy Family History Family History Father No problems noted. Mother No problems noted. Brother No problems noted. Daughter No problems noted. Daughter No problems noted. Social History Social History Alcohol intake: current Patient Tobacco Use Status: Former Tobacco user Quit Date: as a teen Advance Directives: No Advance Directives Information Provided: No Physical Exam ED Vital Signs: Vital Signs - 24 hr 10/24/23 21:33 10/24/23 22:55 Temperature 98.0 F 98.1 F Pulse Rate 93 75 Respiratory Rate 17 12 Blood Pressure 212/113 H 185/99 H Pulse Oximetry 97 95 Oxygen Delivery Method Room Air Room Air BMI result Body Mass Index 31.9 Course Course Course Narrative: RME performed by Radha Mario PA-C. Patient is a 68 year old assigned male at presenting to the emergency department with urinary retention. Detailed physical exam and review of systems are deferred to the section gang worker. Patient placed back in the waiting room pending room availability. Medications Administered Discontinued Medications Generic Name Dose Route Start Last Admin Trade Name Freq PRN Reason Stop Dose Admin Lidocaine HCl 10 ml 10/24/23 22:20 10/24/23 22:28 Lidocaine Hcl 2 % Urojet 10 Ml Jel.Pf.Nishant TOPICAL 10/24/23 22:21 10 ml ONCE ONE Administration Discharge Plan Discharge Prescriptions: No Action ofloxacin 0.3 % drops 1 drp ophthalmic (eye) QID aspirin 81 mg tablet,delayed release (DR/EC) 81 mg PO DAILY multivitamin Tablet 1 tab PO DAILY silodosin [Rapaflo] 4 mg capsule 4 mg PO DAILY 90 Days Qty: 90 1RF Rx Instructions: must administer with a meal/food
[2023-10-24] MEDS: Lidocaine HCl 2 % Urojet 10 ML JEL.PF.APP TOPICAL (22:28)
--- NOTE | 2023-10-24 22:51 | ED_ITS ---
HPI - Male Genitourinary General Chief complaint: General Medical Stated complaint: acute urinary retention, high bp Time Seen by Provider: 10/24/23 22:20 Source: patient Mode of arrival: ambulatory Limitations: no limitations History of Present Illness HPI Narrative: Patient with scoliosis with recurrent urinary retention been using straight cath off and on and getting intermittent blood clot since 09/05 after Gonzalez catheter was placed has not had cystoscopy lately today patient when did straight cath noticed big blood clot and after that just dribbling not able to have a good stream no flank pain patient does have history of kidney stone had recent ultrasound which was negative been followed by Urology does not want any Gonzalez catheter on arrival patient's bladder scan showed more than 1400 cc of urine p atient was on silodosin capsule Related Data Home Medications Medication Instructions Recorded Confirmed aspirin 81 mg tablet,delayed 81 mg PO DAILY 04/03/22 09/15/22 release multivitamin 1 tab PO DAILY 04/03/22 09/15/22 ofloxacin 0.3 % eye drops 1 drp ophthalmic (eye) QID 09/14/22 09/15/22 Previous Rx's Medication Instructions Recorded silodosin 4 mg capsule (Rapaflo) 4 mg PO DAILY 90 days #90 caps 08/28/23 Allergies Allergy/AdvReac Type Severity Reaction Status Date / Time indomethacin [From INDOCIN] Allergy Intermediate Confusion Verified 10/24/23 21:33 Sulfa (Sulfonamide Allergy Unknown RASH Verified 10/24/23 21:33 Antibiotics) tamsulosin [Flomax] AdvReac Unknown swelling Verified 10/24/23 21:33 Review of Systems Review of Systems: Yes all other systems are reviewed and are negative [facility] Past Medical History Medical History Hx of peripheral vascular disease Viral pericarditis Diverticulosis Scoliosis BPH (benign prostatic hyperplasia) Other obstructive and reflux uropathy Renal stones History of pulmonary embolism Increased prostate specific antigen (PSA) velocity Surgical History H/O colonoscopy Hx of vasectomy H/O removal of cyst [place] teeth extracted History of tonsillectomy and adenoidectomy Family History Family History Father No problems noted. Mother No problems noted. Brother No problems noted. Daughter No problems noted. Daughter No problems noted. Social History Social History Alcohol intake: current Patient Tobacco Use Status: Former Tobacco user Quit Date: as a teen Advance Directives: No Advance Directives Information Provided: No Physical Exam Vital Signs: Vital Signs: Last Vital Signs Temp 98.1 F 10/24/23 22:55 Pulse 75 10/24/23 22:55 Resp 12 10/24/23 22:55 BP 185/99 H 10/24/23 22:55 Pulse Ox 95 10/24/23 22:55 O2 Del Method Room Air 10/24/23 22:55 BMI result Body Mass Index 31.9 Appearance: Alert. Oriented X3. No acute distress. Eyes: No pallor ENT: Pharynx normal. Oral Mucosa moist Neck: Normal inspection. Neck supple. CVS: Normal heart rate and rhythm. Pulses normal. Respiratory: No respiratory distress. Equal air entry bilateral, no wheezing/rales/rhonchi Abdomen: Soft suprapubic fullness with bladder distention. Bowel sounds are present, no mass palpable, no CVA tenderness Skin: Skin warm and dry. Normal skin color. Normal skin turgor. Extremities: No lower extremity edema. No calf tenderness Neuro: Oriented X 3. No motor deficit. Medications Administered Discontinued Medications Generic Name Dose Route Start Last Admin Trade Name Freq PRN Reason Stop Dose Admin Lidocaine HCl 10 ml 10/24/23 22:20 10/24/23 22:28 Lidocaine Hcl 2 % Urojet 10 Ml Jel.Pf.Nishant TOPICAL 10/24/23 22:21 10 ml ONCE ONE Administration Medical Decision Making Medical Decision Making [facility] Narrative: 3 way 20 [place] Gonzalez catheter was placed and bladder irrigation was done no blood clot noticed patient drained about 1400 cc of urine cleared patient does not want gonzalez catheter to be in place will use straight cath as needed and follow with urology repeat blood pressure was 185/99 repeat better scan was 100 cc in the bladder will discharge patient home with follow-up with urologist. Patient does not have any history of hypertension blood pressure is elevated secondary to urinary retention as in the past Differential Diagnosis Differential Diagnoses: The differential diagnosis associated with the presentation includes Urinary retention/outlet obstruction Discharge Plan Discharge Clinical Impression: Urinary retention with incomplete bladder emptying Patient Disposition: Home, Self-Care Instructions: Urinary Retention in Men (ED) Additional Instructions: Continue to use straight cath as advised by urologist You may need cystoscopy to find the cause of intermittent bleeding Prescriptions: No Action ofloxacin 0.3 % drops 1 drp ophthalmic (eye) QID aspirin 81 mg tablet,delayed release (DR/EC) 81 mg PO DAILY multivitamin Tablet 1 tab PO DAILY silodosin [Rapaflo] 4 mg capsule 4 mg PO DAILY 90 Days Qty: 90 1RF Rx Instructions: must administer with a meal/food Interventions: ED Discharge Assessment Last Done: 10/24/23 23:14 Discharge Date/Time: 10/24/23 23:15
[2023-10-24 22:55] VITALS: BP 185/99; PULSE 75; RESP 12; TEMP 36.7; O2SAT 95
== END 2023-10-24 23:15 | disposition home or self-care (01) ==
PROVIDERS: Emergency Provider Internal Medicine; PCP Internal Medicine
DX: R33.9 Retention of urine, unspecified (principal)
CPT/HCPCS: 51702; 51798; 99284

== ENCOUNTER 2023-10-26 17:01 | Inpatient (IN) | payer MEDICARE, SELFPAY ==
--- NOTE | ~2023-10-26 | US_ITS ---
EXAMINATION: US RETROPERITONEAL LIMITED (RENAL ONLY) CLINICAL INFORMATION: Hydronephrosis. COMPARISON: Portions of CT abdomen and pelvis 10/26/2023. TECHNIQUE: Real-time imaging of the kidneys. FINDINGS: RIGHT KIDNEY: 10.0 x 6.3 x 6.7 cm (SAG x AP x TRV). There is a 2.1 cm cyst exophytic from the lateral aspect of the lower right kidney. Renal cortical thickness is normal. No renal calculi. Moderate to marked dilation of the intrarenal collecting system LEFT KIDNEY: 11.6 x 5.9 x 5.3 cm (SAG x AP x TRV). The kidney is normal in size, contour, and echogenicity. Renal cortical thickness is normal. No renal calculi or focal parenchymal lesions. Moderate dilation of the intrarenal collecting system. ADDITIONAL FINDINGS: The bladder is markedly abnormal. There is a balloon catheter present. There is focal protrusion from the prostate into the bladder base in the region of the urethra. The bladder wall is markedly trabeculated. There are bladder diverticula. US/US renal BI IMPRESSION: Persistent at least moderate dilation of the intrarenal collecting system bilaterally. Balloon catheter within the urinary bladder. Markedly trabeculated bladder wall with bladder diverticula. Markedly enlarged prostate including a so-called median lobe.
--- NOTE | ~2023-10-26 | CT_ITS ---
EXAMINATION: CT ABDOMEN AND PELVIS WITHOUT CONTRAST CLINICAL INFORMATION: Obstructive uropathy COMPARISON: None available. TECHNIQUE: Multidetector volumetric imaging was performed from the superior aspect of the liver through the pubic symphysis. Sagittal and coronal reformatted images were obtained on the technologist's workstation. This CT examination was performed using dose optimization techniques as appropriate, variously including the following: *Automated exposure control *Adjustment of mA and/or kV according to patient size (this includes techniques or standardized protocols for targeted exams where dose is matched to indication/reason for exam; i.e. extremities or head) *Use of iterative reconstruction technique DLP: 415 mGy-cm FINDINGS: LUNG BASES: The visualized lung bases are unremarkable. LIVER, GALLBLADDER, AND BILIARY TREE: The liver is normal in size, shape, and attenuation. No focal hepatic lesion or biliary ductal dilatation is present. The gallbladder is unremarkable with no evidence of radiopaque gallstones, gallbladder wall thickening, or obvious pericholecystic inflammatory changes. PANCREAS: Unremarkable. SPLEEN: Unremarkable. ADRENAL GLANDS: Unremarkable. KIDNEYS AND URETERS: Bilateral hydronephrosis and ureteral dilatation down to the bladder. 2 cm cyst exophytic to the lateral lower pole right kidney. No imaging follow-up recommended. BLADDER: There is a Singh catheter in the bladder. Bladder is empty. There is diffuse bladder wall thickening. The prostate gland is enlarged. Since the base of the bladder. GASTROINTESTINAL TRACT: The small and large bowel are unremarkable. The appendix is unremarkable. ABDOMINAL WALL: No significant hernia is appreciated. LYMPH NODES: Normal. VASCULAR: Unremarkable. PELVIC VISCERA: The prostate gland is enlarged and protrudes into the base of lateral. The prostate gland measures 5.4 x 5.6 cm. OSSEOUS STRUCTURES: Severe thoracolumbar scoliosis. CT/CT abdomen pelvis wo IV con IMPRESSION: Bilateral hydronephrosis and ureteral dilatation down to the bladder. Singh catheter in the bladder. The bladder is empty. The prostate gland is enlarged and protrudes into the base of the bladder. There is diffuse bladder wall thickening. Findings suggestive of obstructive uropathy. Fleischner guidelines were followed.
[2023-10-26 17:23] VITALS: BP 188/97; PULSE 85; RESP 20; TEMP 35.9; O2SAT 96
--- NOTE | 2023-10-26 17:23 | ED_ITS ---
HPI - Male Genitourinary General Chief complaint: Urogenital-Male Stated complaint: Urinary retention Source: patient Mode of arrival: ambulatory Limitations: no limitations History of Present Illness HPI Narrative: Patient with history of obstructive BPH using a straight cath for last 2 months was seen here on 10/23 for retention of urine patient did not want Singh catheter at that time continue to use straight cath did not urinate much in last 48 hours even with straight catheterization came here as noticed bladder distended with discomfort Related Data Home Medications Medication Instructions Recorded Confirmed aspirin 81 mg tablet,delayed 81 mg PO DAILY 04/03/22 10/26/23 release multivitamin 1 tab PO DAILY 04/03/22 10/26/23 cholecalciferol (vitamin D3) 25 25 mcg PO DAILY 10/26/23 10/26/23 mcg (1,000 unit) tablet magnesium glycinate 100 mg tablet 250 mg PO DAILY 10/26/23 10/26/23 saw palmetto 450 mg capsule 450 mg PO DAILY 10/26/23 10/26/23 silodosin 4 mg capsule (Rapaflo) 4 mg PO BEDTIME 10/26/23 10/26/23 Allergies Allergy/AdvReac Type Severity Reaction Status Date / Time indomethacin [From INDOCIN] Allergy Intermediate Confusion Verified 10/26/23 17:30 Sulfa (Sulfonamide Allergy Unknown RASH Verified 10/26/23 17:30 Antibiotics) tamsulosin [Flomax] AdvReac Unknown swelling Verified 10/26/23 17:30 Review of Systems 2 Review of Systems: Yes all other systems are reviewed and are negative [facility] Past Medical History Medical History Hx of peripheral vascular disease Viral pericarditis Diverticulosis Scoliosis BPH (benign prostatic hyperplasia) Other obstructive and reflux uropathy Renal stones History of pulmonary embolism Increased prostate specific antigen (PSA) velocity Surgical History H/O colonoscopy Hx of vasectomy H/O removal of cyst [place] teeth extracted History of tonsillectomy and adenoidectomy Family History Family History Father No problems noted. Mother No problems noted. Brother No problems noted. Daughter No problems noted. Daughter No problems noted. Social History Social History Household Members: Spouse Housing: House Do you presently have visiting nurse or other home services: No Alcohol intake: current Alcohol intake frequency: holidays/special occasions only Patient Tobacco Use Status: Former Tobacco user Quit Date: as a teen Physical Exam 2 Vital Signs: Vital Signs: Last Vital Signs Temp 98.6 F 10/26/23 22:30 Pulse 77 10/26/23 22:30 Resp 18 10/26/23 22:30 BP 170/89 H 10/26/23 22:30 Pulse Ox 95 10/26/23 22:30 O2 Del Method Room Air 10/26/23 22:30 BMI result Body Mass Index 30.0 Appearance: Alert. Oriented X3. No acute distress. Eyes: PERRLA, no pallor /icterus ENT: Pharynx normal. Oral Mucosa moist Neck: Normal inspection. Neck supple. CVS: Normal heart rate and rhythm. Pulses normal. Respiratory: No respiratory distress. Equal air entry bilateral, no wheezing/rales/rhonchi Abdomen: Soft bladder full all the way to umbilical Bowel sounds are present, no mass palpable, no CVA tenderness Skin: Skin warm and dry. Normal skin color. Normal skin turgor. Extremities: No lower extremity edema. No calf tenderness Neuro: Oriented X 3. No motor deficit. Course Course Course Narrative: This is an RME: Additional HPI, ROS, PE not included below will be deferred to primary provider. Patient is a 68-year-old male who presents emergency department for evaluation Patient spoke with his primary care provider and was advised to come to the emergency department for evaluation of urinary retention over the past week. Was seen in the emergency department 10/24/2023 with similar symptoms, had bladder irrigation at that time but was not amenable to having Singh catheter insertion. He was advised to continue intermittent straight catheterization outpatient follow-up with Urology for cystoscopy. He has an appointment scheduled for this coming with Urology. He voided approximately 10 minutes prior to arrival. However, at this time he is amenable to having Singh catheter inserted as he continues to have retention. Plan: labs, bladder scan 19:30 - critical creatinine 5.3, MING when compared to labs 2 days ago, spoke with admission discharge rnKatie, PT to be brought back to main ED as soon as next bed available Medications Administered Generic Name Dose Route Start Last Admin Trade Name [place] PRN Reason Stop Dose Admin Acetaminophen 650 mg 10/26/23 21:37 10/26/23 22:31 Acetaminophen 325 Mg Tablet PO 650 mg Q6H PRN Administration Pain, Mild (Pain Scale 1-3) Discontinued Medications Generic Name Dose Route Start Last Admin Trade Name Freq PRN Reason Stop Dose Admin Amlodipine Besylate 5 mg 10/26/23 21:50 10/26/23 22:31 Amlodipine Besylate 5 Mg Tablet PO 10/26/23 21:51 5 mg ONCE ONE Administration Protocol Sodium Chloride 1,000 mls @ 999 mls/hr 10/26/23 20:33 10/26/23 21:39 Ns IV 10/26/23 21:33 Infused .Q1H1M ONE Infusion Lidocaine HCl 10 ml 10/26/23 20:02 10/26/23 20:16 Lidocaine Hcl 2 % Urojet 10 Ml Jel.Pf.Nishant TOPICAL 10/26/23 20:03 10 ml ONCE ONE Administration Tramadol HCl 25 mg 10/26/23 22:47 10/26/23 23:38 Tramadol Hcl 50 Mg Tablet PO 10/26/23 22:48 25 mg ONCE ONE Administration Medical Decision Making Medical Decision Making [facility] Narrative: Patient obstructive uropathy secondary to BPH coude catheter 18 [place] using the guidewire was placed and about 2500 cc of urine drained patient felt much better CT abdomen showed obstructive uropathy with enlarged middle lobe level of showed acute elevation creatinine from 1.06 in 09/05 to 5.34 today will admit patient for further evaluation by urologist Differential Diagnosis Differential Diagnoses: The differential diagnosis associated with the presentation includes Admission/Observation Consideration of admission/observation: Escalation of care including admission/observation considered Consult Healthcare Provider Management of the patient was discussed with: Hospitalist Lab Data [facility] Lab Attestation statement: I reviewed the patient's lab results. 10/26/23 18:48 10/26/23 18:48 Labs: Lab Results 10/26/23 10/26/23 Range/Units 18:48 20:34 WBC 9.7 (4.8-10.8) X10*3/uL RBC 4.64 (4.60-5.80) X10*6/uL Hgb 14.2 (14.0-18.0) g/dl Hct 41.1 L (42.0-52.0) % MCV 88.6 (80.0-98.0) fL MCH 30.6 (27.0-33.0) pg MCHC 34.5 (31.0-36.0) g/dl RDW 12.4 (11.0-16.0) % Plt Count 237 (160-400) X10*3/uL MPV 9.8 (9.4-12.4) fL Immature Gran % (Auto) 0.7 H (0.0-0.4) % Neut % (Auto) 83.5 H (45-73) % Lymph % (Auto) 6.6 L (20-40) % [place] % (Auto) 7.1 (2-11) % Eos % (Auto) 1.8 (0-4) % Baso % (Auto) 0.3 (0-2) % Lymph # (Auto) 0.6 L (1.2-4.9) X10*3/uL [place] # (Auto) 0.7 (0.1-1.2) X10*3/uL Eos # (Auto) 0.2 (0.0-0.4) X10*3/uL Baso # (Auto) 0.0 (0.0-0.2) X10*3/uL Abs Immat Gran (auto) 0.07 H (0.00-0.03) X10*3/uL Absolute Neuts (auto) 8.1 (2.0-8.3) x10*3/uL Absolute Nucleated RBC 0.000 (0.0-0.012) X10*3/uL Nucleated RBC % (auto) 0.0 (0.0-0.2) /100WBC Sodium 140 (135-145) mmol/L Potassium 5.0 D (3.3-5.1) mmol/L Chloride 105 (96-108) mmol/L Carbon Dioxide 24 (22-29) mmol/L Anion Gap 16 (12-20) BUN 58 H (9-16) mg/dL Creatinine 5.34 H* (0.5-1.4) mg/dL Estim Creat Clear Calc 11.5 Estimated GFR 11 Random Glucose 93 (60-115) mg/dL Calcium 9.7 (8.4-10.2) mg/dL Total Bilirubin 0.8 (0.0-1.0) mg/dL AST 13 (5-37) U/L ALT 12 (0-40) U/L Alkaline Phosphatase 78 (39-117) U/L Total Creatine Kinase 107 (38-174) U/L Total Protein 7.6 (6.5-8.0) g/dL Albumin 4.4 (3.5-5.0) g/dL Urine Color Yellow Urine Appearance Clear Urine pH 5.5 (5.0-9.0) Ur Specific [place] <= 1.005 (1.005-1.025) Urine Protein Negative (Neg-Trace) mg/dL Urine Glucose (UA) Negative (Negative) mg/dL Urine Ketones Negative (Negative) mg/dL Urine Blood Large (3+) H (Negative) Urine Nitrite Negative (Negative) Ur Leukocyte Esterase Negative (Negative) Urine RBC 0-2 (0-2) /HPF Urine WBC 0-5 (0-5) /HPF Ur Squamous Epith Cells 0-2 (0-2) /HPF Urine Bacteria None Seen (None Seen) Hyaline Casts 0-2 (0-2) /LPF Independent Interpretation I performed an independent interpretation of an: CT Scan Radiology Impression Discussion of test interpretation with radiology: I have reviewed the radiologist's reading. Radiologist Impression: CT/CT abdomen pelvis wo IV con IMPRESSION: Bilateral hydronephrosis and ureteral dilatation down to the bladder. Singh catheter in the bladder. The bladder is empty. The prostate gland is enlarged and protrudes into the base of the bladder. There is diffuse bladder wall thickening. Findings suggestive of obstructive uropathy. Fleischner guidelines were followed. Procedures Catheter Insertion (Urinary) Date of insertion: 10/26/23 Time of insertion: 22:00 Reason for placing: Yes Reason for placing indwelling catheter: Acute urinary retention Bladder scan/ultrasound used before catheterization: Yes Estimated amount of urine (mLs): 1,200 Topical anesthesia used: Yes Catheter type/location: Coude Size ([place]): 18 Catheter balloon size (mL): 30 Results: successfully catheterized-immediate flow Procedure performed: without complications Critical Care Time Critical Care Time Critical Care Time: Yes Total Critical Care Time: 55 Attestation: The patient was critically ill with a high probability of imminent or life threatening deterioration. I spent greater than ?60??minutes of discontinuous time evaluating the patient,delivering critical care at the bedside, discussing and evaluating pertinent data with consultants. Critical care time does not include time spent performing separately billable procedures or teaching. Total time spent performing critical care was ?55??minutes. Discharge Plan Discharge Clinical Impression: Acute retention of urine, BPH (benign prostatic hyperplasia), Bilateral hydronephrosis, Acute kidney injury Patient Disposition: Admitted As Inpatient Interventions: Admission Worksheet (ED) Last Done: 10/26/23 23:44 Discharge Date/Time: 10/27/23 00:41
[2023-10-26 19:01] LABS: MANUAL DIFF FLAG NO
[2023-10-26 19:17] LABS: Basophils Percent Auto 0.3 % (0-2); Eosinophils Absolute Auto 0.2 X10*3/uL (0.0-0.4); Eosinophils Percent Auto 1.8 % (0-4); Hematocrit 41.1 % (42.0-52.0); Hemoglobin 14.2 g/dl (14.0-18.0); Imm Gran Abs Auto 0.07 X10*3/uL (0.00-0.03); Imm Gran Pct Auto 0.7 % (0.0-0.4); Lymphocytes Absolute Auto 0.6 X10*3/uL (1.2-4.9); Lymphocytes Percent Auto 6.6 % (20-40); Mean Corpuscular HGB Conc 34.5 g/dl (31.0-36.0); Mean Corpuscular Hemoglobin 30.6 pg (27.0-33.0); Mean Corpuscular Volume 88.6 fL (80.0-98.0); Mean Platelet Volume 9.8 fL (9.4-12.4); Monocytes Absolute Auto 0.7 X10*3/uL (0.1-1.2); Monocytes Percent Auto 7.1 % (2-11); Neutrophils Absolute Auto 8.1 x10*3/uL (2.0-8.3); Neutrophils Percent Auto 83.5 % (45-73); Platelet Count 237 X10*3/uL (160-400); Red Blood Count 4.64 X10*6/uL (4.60-5.80); Red Cell Distribution Width 12.4 % (11.0-16.0); White Blood Count 9.7 X10*3/uL (4.8-10.8)
[2023-10-26 19:29] LABS: Alanine Aminotransferase 12 U/L (0-40); Albumin Level 4.4 g/dL (3.5-5.0); Alkaline Phosphatase 78 U/L (39-117); Anion Gap 16 (12-20); Aspartate Amino Transferase 13 U/L (5-37); Bilirubin Total 0.8 mg/dL (0.0-1.0); Blood Urea Nitrogen 58 mg/dL (9-16); Calcium 9.7 mg/dL (8.4-10.2); Carbon Dioxide 24 mmol/L (22-29); Chloride 105 mmol/L (96-108); Creatinine Clr Calc Pharmacy 11.5; Estimated Glomerular Filt Rate 11; Glucose Random 93 mg/dL (60-115); Sodium 140 mmol/L (135-145); Total Protein 7.6 g/dL (6.5-8.0)
[2023-10-26 20:03] VITALS: BP 187/102; PULSE 84; RESP 18; TEMP 36.6; O2SAT 97
[2023-10-26] MEDS: Lidocaine HCl 2 % Urojet 10 ML JEL.PF.APP TOPICAL (20:16)
--- NOTE | 2023-10-26 20:16 | PC.NURSE ---
pt from home reporting increasing urinary retention and inability to straight catheterize self. pt reports being seen on Sunday for similar symptoms and reports blood clots at the time. pt reports attempting to self cath self and reports feeling resistance. upon assumption of care, pt bladder scanned and pt noted to have >1000. at bedside.
[2023-10-26] MEDS: 0.9 % Sodium Chloride 1,000 ML 999 ML IV (20:38)
[2023-10-26 20:44] LABS: Appearance Urine Clear; Color Urine Yellow; Glucose Urine UA Negative (Negative); Leukocyte Esterase Urine Negative (Negative); Nitrite Urine Negative (Negative); PH 5.5 (5.0-9.0); Specific Gravity - Urine <= 1.005 (1.005-1.025); UMIC TRIGGER UACC YES; Urine Blood Large (3+) (Negative); Urine Ketones Negative (Negative); Urine Protein Negative (Neg-Trace)
--- NOTE | 2023-10-26 20:46 | PC.NURSE ---
20G placed in the left AC, fluid bolus hanging per provider order.
--- NOTE | 2023-10-26 21:06 | PC.NURSE ---
2000ml red tinged urine emptied out of gonzalez drainage at this time.
[2023-10-26 21:21] LABS: Bacteria Urine None Seen (None Seen); Hyaline Casts Urine 0-2 /LPF (0-2); RBC Urine 0-2 /HPF (0-2); Squamous Epithelial Cell Urine 0-2 /HPF (0-2); WBC Urine 0-5 /HPF (0-5)
--- NOTE | 2023-10-26 21:26 | PHA.MEDREC ---
Pharmacy Consult ? Medication Reconciliation Pharmacy has completed the medication reconciliation. Pt can have silodosin brought in. Only wants chelated magnesium so do not change to mag oxide Kyle
--- NOTE | 2023-10-26 21:38 | PM.IMHP ---
History of Present Illness Date of Service: 10/26/23 Chief Complaint: Urine retention This is a 68-year-old male with pertinent history of BPH with incomplete bladder emptying and urinary retention who presents to the emergency department for evaluation of retention of urine. Patient was seen here 2 days prior to presentation for urinary retention. Bladder scan showed 1400 cc of urine and state CT was done to drain. Patient did not want Singh catheter and was asked to follow up with Urology as an outpatient. Also bladder was irrigated in the ER 2 days prior to presentation. Patient states he has been awaiting Urology follow-up appointment. He intermittently straight caths at home. Also has noticed intermittent hematuria. Over the last 2 days, patient was unable to straight cath and felt like he was retaining urine. No fever, chills, nausea, vomiting, chest discomfort, palpitations, changes in bowel habits. In the emergency department, Singh catheter was placed with about 1600 cc of urine draining immediately. Creatinine was found to be 5.34. Review of Systems Constitutional: Constitutional: Reports no additional constitutional complaints Cardiovascular: Cardiovascular: Reports no additional cardiovascular complaints Respiratory: Respiratory: Reports no additional respiratory complaints Gastrointestinal: Gastrointestinal: Reports no additional gastrointestinal complaints Genitourinary: Genitourinary: Reports hematuria, Reports oliguria and Reports difficulty urinating [facility] Medical History Hx of peripheral vascular disease Viral pericarditis Diverticulosis Scoliosis BPH (benign prostatic hyperplasia) Other obstructive and reflux uropathy Renal stones History of pulmonary embolism Increased prostate specific antigen (PSA) velocity Family History Father No problems noted. Mother No problems noted. Brother No problems noted. Daughter No problems noted. Daughter No problems noted. Surgical History H/O colonoscopy Hx of vasectomy H/O removal of cyst [place] teeth extracted History of tonsillectomy and adenoidectomy Social History Alcohol intake: current Alcohol intake frequency: holidays/special occasions only Patient Tobacco Use Status: Former Tobacco user Quit Date: as a teen Smoked in Last 30 Days: No Use of substances other than those prescribed or required for medical reasons: No Advance Directives: No Advance Directives Information Provided: No Meds Allergies Allergy/AdvReac Type Severity Reaction Status Date / Time indomethacin [From INDOCIN] Allergy Intermediate Confusion Verified 10/26/23 17:30 Sulfa (Sulfonamide Allergy Unknown RASH Verified 10/26/23 17:30 Antibiotics) tamsulosin [Flomax] AdvReac Unknown swelling Verified 10/26/23 17:30 Home Medications Medication Instructions Recorded Confirmed Last Taken Type aspirin 81 mg tablet,delayed 81 mg PO DAILY 04/03/22 10/26/23 10/26/23 History release multivitamin 1 tab PO DAILY 04/03/22 10/26/23 10/26/23 History cholecalciferol (vitamin D3) 25 25 mcg PO DAILY 10/26/23 10/26/23 10/26/23 History mcg (1,000 unit) tablet magnesium glycinate 100 mg tablet 250 mg PO DAILY 10/26/23 10/26/23 10/26/23 History saw palmetto 450 mg capsule 450 mg PO DAILY 10/26/23 10/26/23 10/26/23 History silodosin 4 mg capsule (Rapaflo) 4 mg PO BEDTIME 10/26/23 10/26/23 10/25/23 History Physical Exam Vital Signs and Narrative: Vital Signs: Last Vital Signs Temp 97.8 F 10/26/23 20:03 Pulse 84 10/26/23 20:03 Resp 18 10/26/23 20:03 BP 187/102 H 10/26/23 20:03 Pulse Ox 97 10/26/23 20:03 O2 Del Method Room Air 10/26/23 20:03 BMI result Body Mass Index 30.0 Middle-aged male lying in bed in no distress Neck supple, no JVD Regular rate and rhythm, S1-S2 heard Regular breath sounds bilaterally, no wheezing or crackles appreciated Abdomen soft nontender, no guarding, no rigidity Patient is awake, alert and oriented to self, place, time and person ; no focal motor deficit Psych: Normal mood No pedal edema Results Labs 10/26/23 18:48 10/26/23 18:48 Labs: Laboratory Results - last 24 hr 10/26/23 10/26/23 18:48 20:34 MCV 88.6 MCH 30.6 MCHC 34.5 RDW 12.4 Plt Count 237 MPV 9.8 Immature Gran % (Auto) 0.7 H Neut % (Auto) 83.5 H Lymph % (Auto) 6.6 L [place] % (Auto) 7.1 Eos % (Auto) 1.8 Baso % (Auto) 0.3 Lymph # (Auto) 0.6 L [place] # (Auto) 0.7 Eos # (Auto) 0.2 Baso # (Auto) 0.0 Abs Immat Gran (auto) 0.07 H Absolute Neuts (auto) 8.1 Absolute Nucleated RBC 0.000 Nucleated RBC % (auto) 0.0 Anion Gap 16 Estim Creat Clear Calc 11.5 Estimated GFR 11 Random Glucose 93 Calcium 9.7 Total Bilirubin 0.8 AST 13 ALT 12 Alkaline Phosphatase 78 Total Protein 7.6 Albumin 4.4 Urine Color Yellow Urine Appearance Clear Urine pH 5.5 Ur Specific [place] <= 1.005 Urine Protein Negative Urine Glucose (UA) Negative Urine Ketones Negative Urine Blood Large (3+) H Urine Nitrite Negative Ur Leukocyte Esterase Negative Urine RBC 0-2 Urine WBC 0-5 Ur Squamous Epith Cells 0-2 Urine Bacteria None Seen Hyaline Casts 0-2 Imaging Radiologist's Impressions: Impressions Abdomen/Pelvis CT 10/26/23 21:01 IMPRESSION: Bilateral hydronephrosis and ureteral dilatation down to the bladder. Singh catheter in the bladder. The bladder is empty. The prostate gland is enlarged and protrudes into the base of the bladder. There is diffuse bladder wall thickening. Findings suggestive of obstructive uropathy. Fleischner guidelines were followed. Assessment and Plan (1) Acute kidney injury: Status: Acute (2) Urinary retention with incomplete bladder emptying: Status: Acute (3) Bilateral hydronephrosis: Status: Acute Plan This is a 68-year-old male with pertinent history of BPH with incomplete bladder emptying and urinary retention who presents to the emergency department for evaluation of retention of urine. #. Acute kidney injury, postrenal due to obstructive uropathy with bilateral hydronephrosis in a patient with BPH: Singh catheter placed in the ER with more than 1600 cc of urine draining. Closely monitor creatinine and urine output. Avoid nephrotoxins. Hold silodosin as creatinine clearance is less than 30. Consulting Urology, appreciate assistance #. Intermittent hematuria: No blood clots currently and no indication for CBI. Appreciate urology input. Hold aspirin and prophylactic anticoagulation #. Elevated blood pressure: Noted elevated blood pressure trends in the past. Some part may be due to urinary retention. Will initiate amlodipine and monitor DVT prophylaxis: Mechanical Full code Admit as inpatient and will require two night minimum hospital stay for close monitoring of renal function (as above), which is not possible in a lesser acute setting. Specialist consult pending Quality Stroke Does the patient have a stroke diagnosis?: No VTE Prior VTE?: No VTE Risk Level:: Medical - moderate - high VTE Device Contraindication: Treatment Not Indicated VTE Drug Contraindication: N/A - Med Ordered
--- NOTE | 2023-10-26 22:22 | PC.NURSE ---
7431 blood tinge urine drained from gonzalez at this time.
[2023-10-26 22:30] VITALS: BP 170/89; PULSE 77; RESP 18; TEMP 37; O2SAT 95
[2023-10-26] MEDS: Acetaminophen 325 MG TABLET 650 MG PO (22:31)
[2023-10-26] MEDS: amLODIPine Besylate 5 MG TABLET PO (22:31)
[2023-10-26] MEDS: traMADoL HCL 50 MG TABLET 25 MG PO (23:38)
[2023-10-27] VITALS: BP 160/76; PULSE 83; RESP 18; TEMP 36.3; O2SAT 97
[2023-10-27 00:51] VITALS: BMI 28.8
[2023-10-27 03:31] VITALS: BP 144/71; PULSE 78; RESP 18; TEMP 36.3; O2SAT 94
[2023-10-27] MEDS: 0.9 % Sodium Chloride Flush 3 ML SYRINGE IVFLUSH ×4 (03:32→19:16)
[2023-10-27 05:23] LABS: MANUAL DIFF FLAG NO
[2023-10-27 05:29] LABS: Basophils Percent Auto 0.1 % (0-2); Eosinophils Absolute Auto 0.4 X10*3/uL (0.0-0.4); Eosinophils Percent Auto 4.8 % (0-4); Hematocrit 40.7 % (42.0-52.0); Imm Gran Abs Auto 0.04 X10*3/uL (0.00-0.03); Imm Gran Pct Auto 0.5 % (0.0-0.4); Lymphocytes Absolute Auto 0.8 X10*3/uL (1.2-4.9); Lymphocytes Percent Auto 10.4 % (20-40); Mean Corpuscular HGB Conc 34.4 g/dl (31.0-36.0); Mean Corpuscular Hemoglobin 30.4 pg (27.0-33.0); Mean Corpuscular Volume 88.3 fL (80.0-98.0); Mean Platelet Volume 9.9 fL (9.4-12.4); Monocytes Absolute Auto 0.8 X10*3/uL (0.1-1.2); Monocytes Percent Auto 9.4 % (2-11); Neutrophils Percent Auto 74.8 % (45-73); Platelet Count 245 X10*3/uL (160-400); Red Blood Count 4.61 X10*6/uL (4.60-5.80); Red Cell Distribution Width 12.3 % (11.0-16.0)
[2023-10-27 05:44] LABS: Anion Gap 13 (12-20); Blood Urea Nitrogen 42 mg/dL (9-16); Calcium 9.4 mg/dL (8.4-10.2); Carbon Dioxide 26 mmol/L (22-29); Chloride 111 mmol/L (96-108); Creatinine Clr Calc Pharmacy 17.9; Estimated Glomerular Filt Rate 18; Glucose Random 100 mg/dL (60-115); Potassium 5.4 mmol/L (3.3-5.1); Sodium 145 mmol/L (135-145)
[2023-10-27 07:42] VITALS: BP 160/89; PULSE 85; RESP 17; TEMP 36.4; O2SAT 95
[2023-10-27] MEDS: amLODIPine Besylate 5 MG TABLET PO ×2 (07:45→16:41)
[2023-10-27] MEDS: Cholecalciferol (Vitamin D3) 25 MCG TABLET PO (07:45)
[2023-10-27] MEDS: Multivitamin TABLET 1 TAB PO (07:45)
[2023-10-27] MEDS: Sodium Zirconium Cyclosilicate 10 GM POWD.PACK PO (07:45)
--- NOTE | 2023-10-27 11:24 | P.PNIM_ITS ---
Subjective Subjective Date of Service: 10/27/23 Review of Systems Follow up hematuria, obstructive uropathy still with punch colored urine no nausea or vomiting Physical Exam 2 Vital Signs: Vital Signs: Last Vital Signs Temp 97.5 F 10/27/23 07:42 Pulse 85 10/27/23 07:42 Resp 17 10/27/23 07:42 BP 160/89 H 10/27/23 07:42 Pulse Ox 95 10/27/23 07:42 O2 Del Method Room Air 10/27/23 07:42 BMI result Body Mass Index 28.8 Appearing in no acute distress lung sounds are clear to auscultation heart regular rate rhythm, clear S1, S2 positive bowel sounds, abdomen is soft, nontender neuro patient is alert x3, no focal deficits FC in place Objective Data Active Medications Acetaminophen (Acetaminophen 325 Mg Tablet) 650 mg PO Q6H PRN PRN Reason: Pain, Mild (Pain Scale 1-3) Last Admin: 10/26/23 22:31 Dose: 650 mg Documented By: OSWALD Amlodipine Besylate (Amlodipine Besylate 5 Mg Tablet) 5 mg PO DAILY [facility]; Protocol Last Admin: 10/27/23 07:45 Dose: 5 mg Documented By: SACHIN Melatonin (Melatonin 3 Mg Tablet) 6 mg PO BEDTIME PRN PRN Reason: Insomnia Multivitamins/Vitamin C (Multivitamin Tablet) 1 tab PO DAILY [facility] Last Admin: 10/27/23 07:45 Dose: 1 tab Documented By: SACHIN Ondansetron HCl (Ondansetron Hcl 4 Mg/2 Ml Vial) 4 mg IVPUSH Q8H PRN PRN Reason: Nausea and Vomiting Sodium Chloride (0.9 % Sodium Chloride Flush 3 Ml Syringe) 3 ml IVFLUSH QSHIFT [facility] Last Admin: 10/27/23 07:48 Dose: 3 ml Documented By: SACHIN Vitamin D (Cholecalciferol (Vitamin D3) 25 Mcg Tablet) 25 mcg PO DAILY [facility] Last Admin: 10/27/23 07:45 Dose: 25 mcg Documented By: SACHIN Labs 10/27/23 04:57 10/27/23 04:57 Labs: Laboratory Results - last 24 hr 10/26/23 10/26/23 10/27/23 18:48 20:34 04:57 MCV 88.6 88.3 MCH 30.6 30.4 MCHC 34.5 34.4 RDW 12.4 12.3 Plt Count 237 245 MPV 9.8 9.9 Immature Gran % (Auto) 0.7 H 0.5 H Neut % (Auto) 83.5 H 74.8 H Lymph % (Auto) 6.6 L 10.4 L [place] % (Auto) 7.1 9.4 Eos % (Auto) 1.8 4.8 H Baso % (Auto) 0.3 0.1 Lymph # (Auto) 0.6 L 0.8 L [place] # (Auto) 0.7 0.8 Eos # (Auto) 0.2 0.4 Baso # (Auto) 0.0 0.0 Abs Immat Gran (auto) 0.07 H 0.04 H Absolute Neuts (auto) 8.1 6.0 Absolute Nucleated RBC 0.000 0.000 Nucleated RBC % (auto) 0.0 0.0 Anion Gap 16 13 Estim Creat Clear Calc 11.5 17.9 Estimated GFR 11 18 Random Glucose 93 100 Calcium 9.7 9.4 Total Bilirubin 0.8 AST 13 ALT 12 Alkaline Phosphatase 78 Total Creatine Kinase 107 Total Protein 7.6 Albumin 4.4 Urine Color Yellow Urine Appearance Clear Urine pH 5.5 Ur Specific [place] <= 1.005 Urine Protein Negative Urine Glucose (UA) Negative Urine Ketones Negative Urine Blood Large (3+) H Urine Nitrite Negative Ur Leukocyte Esterase Negative Urine RBC 0-2 Urine WBC 0-5 Ur Squamous Epith Cells 0-2 Urine Bacteria None Seen Hyaline Casts 0-2 Assessment and Plan (1) Acute retention of urine: Status: Acute Plan 68-year-old male with pertinent history of BPH with incomplete bladder emptying and urinary retention who presents to the emergency department for evaluation of retention of urine. Acute kidney injury, postrenal due to obstructive uropathy with bilateral hydronephrosis in a patient with BPH Singh catheter placed in the ER with more than 1600 cc of urine draining. Closely monitor creatinine and urine output. Avoid nephrotoxins. Hold silodosin as creatinine clearance is less than 30. Consulting Urology Intermittent hematuria No blood clots currently and no indication for CBI. Urology consult pending Hold aspirin and prophylactic anticoagulation Elevated blood pressure Noted elevated blood pressure trends in the past. Some part may be due to urinary retention. Will initiate amlodipine and monitor DVT prophylaxis: Mechanical Attending Dr. Espinoza Full code continue hospital stay for close monitoring of renal function (as above), which is not possible in a lesser acute setting. Specialist consult pending Quality Stroke Does the patient have a stroke diagnosis?: No VTE Prior VTE?: No VTE Risk Level:: Medical - moderate - high VTE Device Contraindication: Treatment Not Indicated VTE Drug Contraindication: N/A - Med Ordered
[2023-10-27 15:34] VITALS: BP 171/92; PULSE 81; RESP 18; TEMP 36.6; O2SAT 95
[2023-10-27] MEDS: Acetaminophen 325 MG TABLET 650 MG PO ×2 (16:13→22:01)
[2023-10-27 19:43] VITALS: BP 147/83; PULSE 87; RESP 16; TEMP 36.7; O2SAT 94
--- NOTE | 2023-10-27 19:51 | P.CNUR_ITS ---
History of Present Illness Consult details Consult date: 10/27/23 Narrative: CC: Bilateral hydronephrosis with obstructive uropathy and elevated creatinine Singh catheter placed Bladder emptied Slow response Can be managed as outpatient Review of Systems 2 Constitutional: Constitutional: Reports as per HPI and Reports no additional constitutional complaints Cardiovascular: Cardiovascular: Reports as per HPI and Reports no additional cardiovascular complaints Respiratory: Respiratory: Reports as per HPI and Reports no additional respiratory complaints Gastrointestinal: Gastrointestinal: Reports as per HPI and Reports no additional gastrointestinal complaints Genitourinary: Genitourinary: Reports as per HPI Musculoskeletal: Musculoskeletal: Reports no additional musculoskeletal complaints and Reports as per HPI Neurologic: Reports system reviewed and no additional complaints, except as documented and Reports as per HPI [facility] Past Medical History Medical History Urinary retention with incomplete bladder emptying Hx of peripheral vascular disease Viral pericarditis Diverticulosis Scoliosis BPH (benign prostatic hyperplasia) Other obstructive and reflux uropathy Renal stones History of pulmonary embolism Increased prostate specific antigen (PSA) velocity Family History Family History Father No problems noted. Mother No problems noted. Brother No problems noted. Daughter No problems noted. Daughter No problems noted. Surgical History Surgical History H/O colonoscopy Hx of vasectomy H/O removal of cyst [place] teeth extracted History of tonsillectomy and adenoidectomy Social History Social History Household Members: Spouse Housing: House Do you presently have visiting nurse or other home services: No Alcohol intake: current Alcohol intake frequency: holidays/special occasions only Patient Tobacco Use Status: Former Tobacco user Tobacco use type: Cigarette Second Hand Smoke Exposure: No service: No Meds Allergies Allergy/AdvReac Type Severity Reaction Status Date / Time indomethacin [From INDOCIN] Allergy Intermediate Confusion Verified 01/15/24 15:54 Sulfa (Sulfonamide Allergy Unknown RASH Verified 01/15/24 15:54 Antibiotics) tamsulosin [Flomax] AdvReac Unknown swelling Verified 01/15/24 15:54 Active Medications: Current Medications Acetaminophen (Acetaminophen 325 Mg Tablet) 650 mg PO Q6H PRN PRN Reason: Pain, Mild (Pain Scale 1-3) Last Admin: 10/27/23 16:13 Dose: 650 mg Amlodipine Besylate (Amlodipine Besylate 10 Mg Tablet) 10 mg PO DAILY [facility]; Protocol Melatonin (Melatonin 3 Mg Tablet) 6 mg PO BEDTIME PRN PRN Reason: Insomnia Multivitamins/Vitamin C (Multivitamin Tablet) 1 tab PO DAILY [facility] Last Admin: 10/27/23 07:45 Dose: 1 tab Ondansetron HCl (Ondansetron Hcl 4 Mg/2 Ml Vial) 4 mg IVPUSH Q8H PRN PRN Reason: Nausea and Vomiting Sodium Chloride (0.9 % Sodium Chloride Flush 3 Ml Syringe) 3 ml IVFLUSH QSHIFT [facility] Last Admin: 10/27/23 19:16 Dose: 3 ml Vitamin D (Cholecalciferol (Vitamin D3) 25 Mcg Tablet) 25 mcg PO DAILY [facility] Last Admin: 10/27/23 07:45 Dose: 25 mcg Home Medications ?Medication ?Instructions ?Recorded ?Confirmed ?Last Taken ?Type multivitamin 1 tab PO DAILY 04/03/22 12/10/23 12/09/23 History cholecalciferol (vitamin D3) 25 25 mcg PO DAILY 10/26/23 12/10/23 12/09/23 History mcg (1,000 unit) tablet magnesium glycinate 100 mg tablet 125 mg PO BEDTIME 10/26/23 12/10/23 12/09/23 History amlodipine 10 mg tablet 2.5 mg PO BEDTIME 12/27/23 Unknown History ascorbate calcium (vitamin C) 500 1 g PO Q6H 12/27/23 Unknown History mg tablet Physical Exam 2 Vital Signs: Vital Signs: Last Vital Signs Temp 98.0 F 10/27/23 19:43 Pulse 87 10/27/23 19:43 Resp 16 10/27/23 19:43 BP 183/92 H 10/27/23 19:43 Pulse Ox 94 10/27/23 19:43 O2 Del Method Room Air 10/27/23 19:43 BMI result Body Mass Index 28.8 Const: General: cooperative, healthy appearing, comfortable and no acute distress Orientation/consciousness: patient oriented x3 HEENT: Face and sinus: Yes normal facial exam Mouth: moist mucous membranes Neck: Neck: Yes normal visual inspection, Yes full ROM and Yes trachea midline Chest: Chest palpation & inspection: normal inspection of the chest Resp: Effort & Inspection: normal respiratory effort, able to speak in complete sentences and no respiratory distress GI: Inspection: Yes normal to inspection Back/Spine/Pelvis: Cervical Spine: normal cervical lordosis Thoracic/Lumbar Spine: thoracic and lumbar spine normal to inspection Skin: General skin exam: no rashes or lesions noted Neuro: General: patient oriented x3, tone normal and moves all extremities Extrem: General: Yes normal to inspection and Yes capillary refill normal Results Labs 10/27/23 04:57 10/28/23 07:26 Labs: Abnormal lab results 10/26/23 10/27/23 Range/Units 20:34 04:57 Hct 40.7 L (42.0-52.0) % Immature Gran % (Auto) 0.5 H (0.0-0.4) % Neut % (Auto) 74.8 H (45-73) % Lymph % (Auto) 10.4 L (20-40) % Eos % (Auto) 4.8 H (0-4) % Lymph # (Auto) 0.8 L (1.2-4.9) X10*3/uL Abs Immat Gran (auto) 0.04 H (0.00-0.03) X10*3/uL Potassium 5.4 H (3.3-5.1) mmol/L Chloride 111 H (96-108) mmol/L BUN 42 H (9-16) mg/dL Creatinine 3.37 H (0.5-1.4) mg/dL Urine Blood Large (3+) H (Negative) Short CBC 10/27/23 Range/Units 04:57 WBC 8.0 (4.8-10.8) X10*3/uL Hgb 14.0 (14.0-18.0) g/dl Hct 40.7 L (42.0-52.0) % Plt Count 245 (160-400) X10*3/uL BMP 10/27/23 04:57 Sodium 145 Potassium 5.4 H Chloride 111 H Carbon Dioxide 26 BUN 42 H Creatinine 3.37 H Calcium 9.4 Cardiac Enzymes 10/26/23 Range/Units 18:48 Total Creatine Kinase 107 (38-174) U/L Urine 10/26/23 Range/Units 20:34 Urine Color Yellow Urine Appearance Clear Urine pH 5.5 (5.0-9.0) Ur Specific [place] <= 1.005 (1.005-1.025) Urine Protein Negative (Neg-Trace) mg/dL Urine Glucose (UA) Negative (Negative) mg/dL All other labs normal. Assessment and Plan (1) Urinary retention with incomplete bladder emptying: Status: Acute Plan Continue catheter Procedures Date of Service Date of Service: 01/31/24
[2023-10-28 04:00] VITALS: BP 136/75; PULSE 75; RESP 16; TEMP 36.3; O2SAT 95
[2023-10-28 07:36] VITALS: BP 160/89; PULSE 81; RESP 18; TEMP 36.4; O2SAT 94
[2023-10-28] MEDS: Multivitamin TABLET 1 TAB PO (07:43)
[2023-10-28] MEDS: amLODIPine Besylate 10 MG TABLET PO (07:43)
[2023-10-28] MEDS: 0.9 % Sodium Chloride Flush 3 ML SYRINGE IVFLUSH (07:43)
[2023-10-28] MEDS: Cholecalciferol (Vitamin D3) 25 MCG TABLET PO (07:43)
[2023-10-28 08:13] LABS: Anion Gap 12 (12-20); Blood Urea Nitrogen 22 mg/dL (9-16); Calcium 9.2 mg/dL (8.4-10.2); Carbon Dioxide 30 mmol/L (22-29); Chloride 104 mmol/L (96-108); Creatinine Clr Calc Pharmacy 33.6; Estimated Glomerular Filt Rate 38; Glucose Random 90 mg/dL (60-115); Potassium 4.1 mmol/L (3.3-5.1); Sodium 142 mmol/L (135-145)
--- NOTE | 2023-10-28 10:41 | PM.DS ---
DS: Providers Provider Date of Service: 10/28/23 Date of admission: 10/26/23 21:37 Primary care physician: Deacon Bennett DO Consults: 10/26/23 21:37 Consult to Urology Routine Consulting Provider: Fernando Oconnor Reason for consultation: Urine retention DS: Diagnosis Discharge Diagnosis (1) Acute retention of urine: Status: Acute DS: Summary Hospital Course Hospital Course: History and physical as per admitting provider. This is a 68-year-old male with pertinent history of BPH with incomplete bladder emptying and urinary retention who presents to the emergency department for evaluation of retention of urine. Patient was seen here 2 days prior to presentation for urinary retention. Bladder scan showed 1400 cc of urine and state CT was done to drain. Patient did not want Singh catheter and was asked to follow up with Urology as an outpatient. Also bladder was irrigated in the ER 2 days prior to presentation. Patient states he has been awaiting Urology follow-up appointment. He intermittently straight caths at home. Also has noticed intermittent hematuria. Over the last 2 days, patient was unable to straight cath and felt like he was retaining urine. No fever, chills, nausea, vomiting, chest discomfort, palpitations, changes in bowel habits. In the emergency department, Singh catheter was placed with about 1600 cc of urine draining immediately. Creatinine was found to be 5.34. 68-year-old man treated for MING secondary to obstructive uropathy with bilateral hydronephrosis inpatient with a history of BPH. Singh catheter placed and drained 1600 cc of urine initially. Creatinine was 5.34, down to 1.80 on day of discharge. After IV fluids and Singh catheter placement. Patient was seen and evaluated by Urology, Singh catheter capped and patient to drain every 6 hours and follow-up with Urology in 3 weeks for likely laser treatment. Patient was noted to have elevated blood pressure was started on amlodipine 5 mg, titrated up yesterday to 10 mg with good effect on blood pressure. Patient is to check blood pressure daily and document to share with his primary care provider. Plan to discharge home with family. Time Attestation Discharge Coordination Time (in mins): 46 Quality: Safe Use of Opioids Does Pt have an Active Cancer Diagnosis on the Problem List?: No Quality: Stroke Does the patient have a stroke diagnosis?: No Physical Exam Vital Signs: Vital Signs: Last Vital Signs Temp 97.5 F 10/28/23 07:36 Pulse 81 10/28/23 07:36 Resp 18 10/28/23 07:36 BP 160/89 H 10/28/23 07:36 Pulse Ox 94 10/28/23 07:36 O2 Del Method Room Air 10/28/23 07:36 BMI result Body Mass Index 28.8 Appearing in no acute distress head is normocephalic atraumatic eyes pupils are PERRLA sclera is anicteric mouth throat mucous membranes are intact and moist neck is supple no lymphadenopathy, no JVD noted lung sounds are clear to auscultation heart regular rate rhythm, clear S1, S2 positive bowel sounds, abdomen is soft, nontender neuro patient is alert x3, no focal deficits DS: Data Data Completed and Pending Labs on day of discharge: Laboratory Results - last 24 hr 10/28/23 07:26 Hold Purple Top SEE NOTE Sodium 142 Potassium 4.1 D Chloride 104 Carbon Dioxide 30 H Anion Gap 12 BUN 22 H Creatinine 1.80 H Estim Creat Clear Calc 33.6 Estimated GFR 38 Random Glucose 90 Calcium 9.2 Discharge Plan Discharge Anticipated Discharge Date/Time: 10/28/23 10:39 Patient Disposition: Home, Self-Care Discharge Diagnosis: MING Obstructive uropathy Bilateral hydronephrosis Intermediate hematuria Hypertension Referrals: Fernando Oconnor MD [Physician] - 1 Week Deacon Bennett DO [Primary Care Provider] - 1 Week Discharge Medications: New amlodipine 10 mg Tablet 10 mg PO DAILY Qty: 60 0RF Protocol: Hold for SBP< HOLD for SBP < : 90 Continued magnesium glycinate 100 mg Tablet 250 mg PO DAILY Rx Instructions: CHELATED MAGNESIUM silodosin [Rapaflo] 4 mg capsule 4 mg PO BEDTIME Rx Instructions: must administer with a meal/food saw palmetto 450 mg Capsule 450 mg PO DAILY Rx Instructions: give with food (meal/snack) cholecalciferol (vitamin D3) 25 mcg (1,000 unit) Tablet 25 mcg PO DAILY aspirin 81 mg tablet,delayed release (DR/EC) 81 mg PO DAILY multivitamin Tablet 1 tab PO DAILY Discharge Orders: Discharge Order (Routine); Ordered 10/28/23 Ordered By: Lilliana Eng Diet: Advance to usual diet Activity on Discharge: As tolerated Stand Alone Forms: Patient Portal Discharge page Care Plan Goals: Straight catheterization as needed Health Concerns: MING Obstructive uropathy Bilateral hydronephrosis Intermediate hematuria Hypertension Plan of Treatment: Follow-up with primary care provider as needed Follow-up with urologist as needed Take all medications as prescribed Assessment: See discharge summary
--- NOTE | 2023-10-28 15:18 | MHC.CM.PN ---
Addendum entered by Marry Dominguez 10/28/23 16:10: PT CLEARED TO DC HOME TODAY WITH NO SERVICES Original Note: PT REPORTS HE LIVES WITH HIS AND IS INDEPENDENT WITH CARE HE HAS NO SERVICES AND NO DME HE REPORTS HE HAS A HCP, COPY REQUESTED PCP: [facility] IMM DELIVERED DCP: HOME NO SERVICES VIA PRIVATE TRANSPORT
[2023-10-28 15:58] VITALS: BP 177/93; PULSE 100; RESP 96; TEMP 36.7
== END 2023-10-28 17:19 | disposition home or self-care (01) | DRG 726 ==
LOC: HO.ED 19:52 → HO.EDOVER 21:41 → HO.S3 23:37
PROVIDERS: Nurse Practitioner Family; Admitting Provider Student in an Organized Health Care Education/Training Program; Emergency Provider Internal Medicine; PCP Internal Medicine; Visit Provider Nurse Practitioner Acute Care
DX: N40.1 Benign prostatic hyperplasia with lower urinary tract symptoms (principal); N17.9 Acute kidney failure, unspecified; N13.30 Unspecified hydronephrosis; R33.8 Other retention of urine; R31.9 Hematuria, unspecified; Z87.891 Personal history of nicotine dependence; Z79.82 Long term (current) use of aspirin; Z79.899 Other long term (current) drug therapy
CPT/HCPCS: 36415; 51702; 51798; 74176; 76775; 80048; 80053; 81001; 81003; 82550; 85025; 99284; 99285; C1758

== ENCOUNTER → 2023-10-26 21:37 | Outpatient (BNV) | payer MEDICARE, SELFPAY | PROVIDERS: Admitting Provider Student in an Organized Health Care Education/Training Program; Emergency Provider Internal Medicine; PCP Internal Medicine; Visit Provider Student in an Organized Health Care Education/Training Program | DX: R33.8 Other retention of urine (principal); N17.9 Acute kidney failure, unspecified | CPT/HCPCS: 99222; 99232; 99239 ==

== ENCOUNTER → 2023-10-26 21:37 | Outpatient (BNV) | payer MEDICARE, SELFPAY | PROVIDERS: Admitting Provider Student in an Organized Health Care Education/Training Program; Emergency Provider Internal Medicine; PCP Internal Medicine; Visit Provider Urology | DX: R33.9 Retention of urine, unspecified (principal) | CPT/HCPCS: 99222 ==

== ENCOUNTER 2023-11-01 12:33 | Outpatient (AMB) | payer MEDICARE, SELFPAY ==
--- NOTE | 2023-11-01 13:31 | A.OFFVIS_ITS ---
Intake Intake Visit Reasons: discuss procedure Allergies indomethacin [From INDOCIN] Allergy (Intermediate, Verified 10/26/23 17:30) Confusion Sulfa (Sulfonamide Antibiotics) Allergy (Unknown, Verified 10/26/23 17:30) RASH tamsulosin [Flomax] Adverse Reaction (Unknown, Verified 10/26/23 17:30) swelling Medication List - Last Reconciled 11/01/23 by Fernando Oconnor MD amlodipine 10 mg See Protocol PO DAILY aspirin 81 mg PO DAILY cholecalciferol (vitamin D3) 25 mcg PO DAILY finasteride 5 mg PO DAILY 90 days magnesium glycinate 250 mg PO DAILY multivitamin 1 tab PO DAILY saw palmetto 450 mg PO DAILY silodosin (Rapaflo) 4 mg PO BEDTIME HPI HPI Comments History of Present Illness Details Adan is a very pleasant male. He is a patient of Dr. Bennett. He is seen for following urologic conditions. - lower urinary tract symptoms - nephrolithiasis - urinary retention Telemedicine Evaluation 15 min Consultation [facility] Nishant Video attempted Readmission to hospital 1600 cc in the bladder Found to bilateral hydronephrosis and elevated creatinine Singh catheter placed Hydroureteronephrosis started to resolve and creatinine found to fall from 5-1.8 prior to discharge Continues with Singh catheter with cap. Plan for laser prostatectomy Discussed possible suprapubic tube Recent MRI on spine shows scoliosis with compression in the L3 through L5 range. Is back undergoing chiropractic manipulation with some improvement in bladder emptying. Lower urinary tract symptoms Longstanding management Previous prostate procedures Had Botox to prostate 2014 - for urge/frequency Has a consistently high bladder residual Does feels his stream is adequate PVR 03/02 700, 09/03 750 PSA 01/30 2.9, 12/31 3.2, 04/03 3.0 continues to use Rapaflo as needed on a p.r.n. basis for 3-4 days Nephrolithiasis previously renal cyst on ultrasound Imaging - 08/02 renal ultrasound left cyst 1.5 c m continue surveillance [facility] Medical History Hx of peripheral vascular disease Viral pericarditis Diverticulosis Scoliosis BPH (benign prostatic hyperplasia) Other obstructive and reflux uropathy Renal stones History of pulmonary embolism Increased prostate specific antigen (PSA) velocity Surgical History H/O colonoscopy Hx of vasectomy H/O removal of cyst [place] teeth extracted History of tonsillectomy and adenoidectomy Family History Father No problems noted. Mother No problems noted. Brother No problems noted. Daughter No problems noted. Daughter No problems noted. Social History Household Members: Spouse Housing: House Do you presently have visiting nurse or other home services: No Alcohol intake: current Alcohol intake frequency: holidays/special occasions only Patient Tobacco Use Status: Former Tobacco user Quit Date: as a teen service: No Review of Systems Const All systems reviewed & are unremarkable except as noted in HPI and below Reports no additional complaints Resp Reports no additional complaints GI Reports no additional complaints Reports as per HPI Musc Reports no additional complaints Physical Exam Telemedicine evaluation Appropriate responses Regular breathing rate and rhythm HEENT Head: Yes normal to inspection Ears: hearing grossly normal bilaterally Eyes General: appearance normal, both eyes and all related structures Neck Neck: Yes normal visual inspection Chest Chest palpation & inspection: normal inspection of the chest Resp Effort & Inspection: normal respiratory effort and able to speak in complete sentences Assessment & Plan Assessment & Plan (1) Bilateral hydronephrosis: Code(s): N13.30 - Unspecified hydronephrosis (2) Acute kidney injury: Code(s): N17.9 - Acute kidney failure, unspecified (3) BPH (benign prostatic hyperplasia): Code(s): N40.0 - Benign prostatic hyperplasia without lower urinary tract symptoms (4) Urinary retention with incomplete bladder emptying: Code(s): R33.9 - Retention of urine, unspecified Plan We discussed the nature of the decision and reasonable options for performing a prostate intervention. Interventions include TURP, GreenLight laser enucleation of the prostate, GreenLight laser ablation of the prostate, transurethral incision of the prostate, and I-Tend prostate procedure. Options such as medical therapy were discussed. The relative uncertainties and benefits related to each alternate procedure were adequately discussed. General surgical risks including, but not limited to, pain, bleeding, infection, myocardial infarction, pulmonary embolus, deep vein thrombosis and cerebrovascular accident which may result in further hospitalization were discussed. Full disclosure of the procedure as well as all major risks, benefits and complications were discussed including but not limited to damage to the urethra or bladder neck, recurrent BPH, retrograde ejaculation, bladder infection, urge, de jermaine frequency, incomplete emptying, dysuria, remote chance of erectile dysfunction, epididymitis, and meatal stenosis. The success rate of the procedure was discussed. Success of the procedure in the short-term does not necessarily guarantee that long-term success will be maintained. Suitable follow up will need to be maintained. The patient showed understanding of discussion. An opportunity was provided for questions to be answered and wishes to proceed with the following procedure. - GreenLight laser prostate with potential suprapubic tube Orders: Orders US renal BI 4 Weeks N13.30 - Unspecified hydronephrosis, N20.0 - Calculus of kidney Blood Urea Nitrogen 4 Weeks N13.30 - Unspecified hydronephrosis, R39.15 - Urgency of urination Creatinine 4 Weeks N13.30 - Unspecified hydronephrosis, R39.15 - Urgency of urination Patient Instructions: Imaging studies, laboratory and physical exam results were discussed and reviewed in detail. No major barriers to patient understanding were identified. An opportunity to ask questions regarding the treatment plan was provided. All questions were answered. The patient expressed understanding and agreement with the above treatment plan. The patient is aware they should contact our office by phone for worsening of their current condition or the appearance of new urologic symptoms. Compliance is encouraged with any medications and followup testing that is ordered. It is a privilege to participate in the urologic care of your patient. If you have any questions or concerns regarding treatment for the above conditions, or other urologic issues, please do not hesitate to contact me. The office telephone contact is [phone]. This note is constructed using voice recognition software. While every effort has been made to ensure accuracy plating stripper errors may have been included. Yours sincerely, Dr Fernando Oconnor MD, ED [facility] - Urology Providers of Expert, Compassionate Care for the Genitourinary System Telehealth Telehealth Location of provider rendering services: practice address Location of patient: address on file Patient Identification confirmed using: Name, : Yes Telehealth method: video Patient verbally consented to treatment: Yes Patient verbally consented to billing insurance company: Yes Patient informed of any privacy concerns related to visit: Yes Coding Level of Care Code Tele Est Pt Level 4 (53581) Diagnoses Bilateral hydronephrosis N13.30 Acute kidney injury N17.9 BPH (benign prostatic hyperplasia) N40.0 Urinary retention with incomplete bladder emptying R33.9
== END 2023-11-01 13:40 | disposition home or self-care (01) ==
LOC: HO.HUSH 12:33
PROVIDERS: PCP Internal Medicine; Visit Provider Urology
DX: N13.30 Unspecified hydronephrosis (principal); N17.9 Acute kidney failure, unspecified; N40.0 Benign prostatic hyperplasia without lower urinary tract symptoms; R33.9 Retention of urine, unspecified
CPT/HCPCS: 99214

== ENCOUNTER → 2023-11-01 12:33 | Outpatient (BNVA) | payer MEDICARE, SELFPAY | PROVIDERS: PCP Internal Medicine; Visit Provider Urology ==

== ENCOUNTER 2023-11-01 20:26 | Inpatient (IN) | payer MEDICARE, SELFPAY ==
[2023-11-01 20:35] VITALS: BP 173/103; PULSE 117; RESP 20; TEMP 36.8; O2SAT 96; BMI 27.1
--- NOTE | 2023-11-01 20:37 | ED.GENADULT ---
HPI - General Adult General Chief complaint: Urogenital-Male Stated complaint: bloody urine in gonzalez catheter Time Seen by Provider: 11/01/23 20:45 Source: patient Mode of arrival: ambulatory Limitations: no limitations History of Present Illness HPI narrative: Patient obstructive BPH using straight cath for last 2 months came here on 10/25 with MING and acute kidney retention Gonzalez catheter was placed at that time was admitted and discharged on 10/27 with indwelling Gonzalez catheter since a.m. patient noticed yolande hematuria without any clots also had chills no fever no abdominal pain Related Data Home Medications Medication Instructions Recorded Confirmed aspirin 81 mg tablet,delayed 81 mg PO DAILY 04/03/22 11/01/23 release multivitamin 1 tab PO DAILY 04/03/22 11/01/23 cholecalciferol (vitamin D3) 25 25 mcg PO DAILY 10/26/23 11/01/23 mcg (1,000 unit) tablet magnesium glycinate 100 mg tablet 125 mg PO BEDTIME 10/26/23 11/01/23 saw palmetto 450 mg capsule 450 mg PO BEDTIME 10/26/23 11/01/23 amlodipine 10 mg tablet 10 mg PO BEDTIME 11/01/23 11/01/23 Previous Rx's Medication Instructions Recorded finasteride 5 mg tablet 5 mg PO DAILY 90 days #90 tabs 10/30/23 Allergies Allergy/AdvReac Type Severity Reaction Status Date / Time indomethacin [From INDOCIN] Allergy Intermediate Confusion Verified 11/01/23 20:35 Sulfa (Sulfonamide Allergy Unknown RASH Verified 11/01/23 20:35 Antibiotics) tamsulosin [Flomax] AdvReac Unknown swelling Verified 11/01/23 20:35 Review of Systems Review of Systems: Yes all other systems are reviewed and are negative FOR[facility]LY [facility] Past Medical History Medical History Hx of peripheral vascular disease Viral pericarditis Diverticulosis Scoliosis BPH (benign prostatic hyperplasia) Other obstructive and reflux uropathy Renal stones History of pulmonary embolism Increased prostate specific antigen (PSA) velocity Surgical History H/O colonoscopy Hx of vasectomy H/O removal of cyst [place] teeth extracted History of tonsillectomy and adenoidectomy Family History Family History Father No problems noted. Mother No problems noted. Brother No problems noted. Daughter No problems noted. Daughter No problems noted. Social History Social History Household Members: Spouse Housing: House Do you presently have visiting nurse or other home services: No Alcohol intake: current Alcohol intake frequency: holidays/special occasions only Patient Tobacco Use Status: Former Tobacco user Quit Date: as a teen Smoked in Last 30 Days: No Use of substances other than those prescribed or required for medical reasons: No Advance Directives: Yes Advance Directives Information Provided: No Advance Directives on File: No service: No Physical Exam ED Vital Signs: Vital Signs - 24 hr 11/01/23 20:35 11/01/23 22:36 Temperature 98.2 F 99.2 F Pulse Rate 117 H 107 H Respiratory Rate 20 16 Blood Pressure 173/103 H 146/83 H Pulse Oximetry 96 92 Oxygen Delivery Method Room Air Room Air BMI result Body Mass Index 27.1 Appearance: Alert. Oriented X3. No acute distress. Eyes: PERRLA, No Nystagmus ENT: Pharynx normal. Oral Mucosa moist Neck: Normal inspection. Neck supple. CVS: Normal heart rate and rhythm. Pulses normal. Respiratory: No respiratory distress. Equal air entry bilateral, no wheezing/rales/rhonchi Abdomen: Soft and nontender. Bowel sounds are present, no mass palpable, no CVA tenderness : Yolande hematuria Skin: Skin warm and dry. Normal skin color. Normal skin turgor. Extremities: No lower extremity edema. No calf tenderness Neuro: Oriented X 3. No motor deficit. No sensory deficit.No cerebellar signs , cranial nerves II-XII intact Course Course Course Narrative: This is an RME: Additional HPI, ROS, PE not included below will be deferred to primary provider. 68 year old male viral pericarditis, diverticulosis, scoliosis, bph, renal stones, hx of PE not on blood thinners presents w/ hematuria recently admitted here with MING, DCed on 10/28/2023. Medications Administered Generic Name Dose Route Start Last Admin Trade Name Freq PRN Reason Stop Dose Admin Sodium Chloride 1,000 mls @ 100 mls/hr 11/01/23 23:45 11/02/23 00:04 Ns IVCONT 100 mls/hr .Q10H PAUL Administration Sodium Chloride 3 ml 11/02/23 00:00 11/02/23 00:03 0.9 % Sodium Chloride Flush 3 Ml Syringe IVFLUSH 3 ml QSHIFT PAUL Administration Discontinued Medications Generic Name Dose Route Start Last Admin Trade Name Freq PRN Reason Stop Dose Admin Ceftriaxone Sodium 1 gm/ 50 mls @ 100 mls/hr 11/01/23 21:57 11/01/23 23:02 Sodium Chloride IV 11/01/23 22:26 Infused ONCE ONE Infusion Lidocaine HCl 10 ml 11/01/23 21:30 11/01/23 21:35 Lidocaine Hcl 2 % Urojet 10 Ml Jel.Pf.Nishant TOPICAL 11/01/23 21:31 10 ml ONCE ONE Administration Procedures Catheter Insertion (Urinary) Date of insertion: 11/01/23 Time of insertion: 21:00 Reason for placing: Yes Reason for placing indwelling catheter: Acute urinary retention Bladder scan/ultrasound used before catheterization: Yes Antiseptic solution prep: Povidone-Iodine Topical anesthesia used: Yes Catheter type/location: 3-way Urethral Size (Tristanian): 22 Catheter balloon size (mL): 30 Catheter balloon amount: 30 Results: other (Guidewire used to place a catheter) Procedure performed: without complications Medical Decision Making Medical Decision Making MDM Narrative: Patient has yolande hematuria bladder irrigation done no blood clots came still continued to have yolande blood 22 Tristanian Gonzalez catheter was placed using the guidewire and three-way irrigation started on the Gonzalez catheter pus was noted. Patient WBC count 24,000 suggestive of infection will admit patient for UTI with yolande hematuria Differential Diagnosis Differential Diagnoses: The differential diagnosis associated with the presentation includes UTI/bladder clot/bladder mass Admission/Observation Consideration of admission/observation: Escalation of care including admission/observation considered Consult Healthcare Provider Management of the patient was discussed with: Hospitalist Lab Data MDM Lab Attestation statement: I reviewed the patient's lab results. 11/01/23 20:48 11/01/23 20:48 Labs: Lab Results 11/01/23 11/01/23 Range/Units 20:48 22:01 WBC 24.0 H (4.8-10.8) X10*3/uL RBC 5.02 (4.60-5.80) X10*6/uL Hgb 15.1 (14.0-18.0) g/dl Hct 42.6 (42.0-52.0) % MCV 84.9 (80.0-98.0) fL MCH 30.1 (27.0-33.0) pg MCHC 35.4 (31.0-36.0) g/dl RDW 12.0 (11.0-16.0) % Plt Count 306 (160-400) X10*3/uL MPV 9.0 L (9.4-12.4) fL Immature Gran % (Auto) 0.5 H (0.0-0.4) % Neut % (Auto) 90.2 H (45-73) % Lymph % (Auto) 2.8 L (20-40) % Mccone % (Auto) 5.9 (2-11) % Eos % (Auto) 0.4 (0-4) % Baso % (Auto) 0.2 (0-2) % Lymph # (Auto) 0.7 L (1.2-4.9) X10*3/uL [place]one # (Auto) 1.4 H (0.1-1.2) X10*3/uL Eos # (Auto) 0.1 (0.0-0.4) X10*3/uL Baso # (Auto) 0.0 (0.0-0.2) X10*3/uL Abs Immat Gran (auto) 0.13 H (0.00-0.03) X10*3/uL Absolute Neuts (auto) 21.6 H (2.0-8.3) x10*3/uL Absolute Nucleated RBC 0.000 (0.0-0.012) X10*3/uL Nucleated RBC % (auto) 0.0 (0.0-0.2) /100WBC Smear Tech's Comments VERIFIED PT 13.1 (11.1-13.3) SEC INR 1.1 (0.9-1.1) Sodium 134 L (135-145) mmol/L Potassium 3.9 (3.3-5.1) mmol/L Chloride 102 (96-108) mmol/L Carbon Dioxide 23 (22-29) mmol/L Anion Gap 13 (12-20) BUN 13 (9-16) mg/dL Creatinine 1.19 (0.5-1.4) mg/dL Estim Creat Clear Calc 49.3 Estimated GFR > 60 Random Glucose 141 H (60-115) mg/dL Lactic Acid 1.0 (0.5-2.0) mmol/L Calcium 9.0 (8.4-10.2) mg/dL Magnesium 1.6 (1.6-2.6) mg/dL Total Bilirubin 1.0 (0.0-1.0) mg/dL AST 17 (5-37) U/L ALT 18 (0-40) U/L Alkaline Phosphatase 86 (39-117) U/L Total Creatine Kinase 51 (38-174) U/L Total Protein 7.1 (6.5-8.0) g/dL Albumin 4.0 (3.5-5.0) g/dL Discharge Plan Discharge Clinical Impression: Gross hematuria, Urinary tract infection Patient Disposition: Admitted As Inpatient
[2023-11-01 20:53] LABS: Basophils Percent Auto 0.2 % (0-2); Eosinophils Absolute Auto 0.1 X10*3/uL (0.0-0.4); Eosinophils Percent Auto 0.4 % (0-4); Hematocrit 42.6 % (42.0-52.0); Hemoglobin 15.1 g/dl (14.0-18.0); Imm Gran Abs Auto 0.13 X10*3/uL (0.00-0.03); Imm Gran Pct Auto 0.5 % (0.0-0.4); Lymphocytes Absolute Auto 0.7 X10*3/uL (1.2-4.9); Lymphocytes Percent Auto 2.8 % (20-40); MANUAL DIFF FLAG SCAN; Mean Corpuscular HGB Conc 35.4 g/dl (31.0-36.0); Mean Corpuscular Hemoglobin 30.1 pg (27.0-33.0); Mean Corpuscular Volume 84.9 fL (80.0-98.0); Monocytes Absolute Auto 1.4 X10*3/uL (0.1-1.2); Monocytes Percent Auto 5.9 % (2-11); Neutrophils Absolute Auto 21.6 x10*3/uL (2.0-8.3); Neutrophils Percent Auto 90.2 % (45-73); Platelet Count 306 X10*3/uL (160-400); Red Blood Count 5.02 X10*6/uL (4.60-5.80); SCAN SMEAR FLAG 1
[2023-11-01 21:04] LABS: INTERNATIONAL NORM RATIO 1.1 (0.9-1.1); Prothrombin Time 13.1 SEC (11.1-13.3)
[2023-11-01 21:06] LABS: Alanine Aminotransferase 18 U/L (0-40); Alkaline Phosphatase 86 U/L (39-117); Anion Gap 13 (12-20); Aspartate Amino Transferase 17 U/L (5-37); Blood Urea Nitrogen 13 mg/dL (9-16); Carbon Dioxide 23 mmol/L (22-29); Chloride 102 mmol/L (96-108); Creatinine Clr Calc Pharmacy 49.3; Estimated Glomerular Filt Rate > 60; Glucose Random 141 mg/dL (60-115); Magnesium 1.6 mg/dL (1.6-2.6); Potassium 3.9 mmol/L (3.3-5.1); Sodium 134 mmol/L (135-145); Total Protein 7.1 g/dL (6.5-8.0)
[2023-11-01 21:14] LABS: SLIDE REVIEW VERIFIED
[2023-11-01] MEDS: Lidocaine HCl 2 % Urojet 10 ML JEL.PF.APP TOPICAL (21:35)
--- NOTE | 2023-11-01 22:12 | PHA.MEDREC ---
Pharmacy Consult ? Medication Reconciliation Pharmacy has completed the medication reconciliation. Confirmed medications with patient. He reports that he hasn't taken his aspirin since Sunday and he doesn't start Finasteride till after a procedure he is having in November.
--- NOTE | 2023-11-01 22:30 | PC.NURSE ---
Pt A&Ox3, reports discomfort/pressure to bladder. Provider at bedside manually irrigating cath. New 3 way 22F F/C placed by Dr. Lechuga, Pt tolerated well. CBI started, draining red fluid. IV line placed.
[2023-11-01] MEDS: cefTRIAXone sodium 1 GM in 0.9 % Sodium Chloride 50 ML IV (22:31)
[2023-11-01 22:36] VITALS: BP 146/83; PULSE 107; RESP 16; TEMP 37.3; O2SAT 92
--- NOTE | 2023-11-01 23:57 | P.HPHOSP_ITS ---
History of Present Illness Date of Service: 11/01/23 Attending physician on admission: Darnell Evangelista Chief Complaint: Blood in urine Adan Collins is a 68 years old man with past medical history significant hypertension and BPH and recent hospitalization after presenting with MING secondary to obstructive uropathy requiring indwelling urinary catheter presents tonight to the emergency department complaining of significant blood in urine today. He reported an event of chills, subjective fever and lower abdominal discomfort. He did not report any acute cardiopulmonary symptoms. Patient takes base be aspirin daily In the ED, he was found to have stable vital signs. His lab blood pressure is 177/93. Maximum temperature is 99.2. Blood workup was remarkable for leukocytosis, 24.0. Hemoglobin is 15.1 and platelets 306. Creatinine is 1.19 (prior 1.8) INR is normal. LFTs are normal. Urinalysis consistent with large blood with normal RBC and WBC. ED tx: Rocephin 1 g IV. Review of Systems 2 Review of Systems: All 12 systems were reviewed and normal except as noted in HPI. FORMERLY [facility] Medical History Hx of peripheral vascular disease Viral pericarditis Diverticulosis Scoliosis BPH (benign prostatic hyperplasia) Other obstructive and reflux uropathy Renal stones History of pulmonary embolism Increased prostate specific antigen (PSA) velocity Family History Father No problems noted. Mother No problems noted. Brother No problems noted. Daughter No problems noted. Daughter No problems noted. Surgical History H/O colonoscopy Hx of vasectomy H/O removal of cyst [place] teeth extracted History of tonsillectomy and adenoidectomy Social History Household Members: Spouse Housing: House Do you presently have visiting nurse or other home services: No Alcohol intake: current Alcohol intake frequency: holidays/special occasions only Patient Tobacco Use Status: Former Tobacco user Quit Date: as a teen Smoked in Last 30 Days: No Use of substances other than those prescribed or required for medical reasons: No Advance Directives: Yes Advance Directives Information Provided: No Advance Directives on File: No service: No Meds Allergies Allergy/AdvReac Type Severity Reaction Status Date / Time indomethacin [From INDOCIN] Allergy Intermediate Confusion Verified 11/01/23 20:35 Sulfa (Sulfonamide Allergy Unknown RASH Verified 11/01/23 20:35 Antibiotics) tamsulosin [Flomax] AdvReac Unknown swelling Verified 11/01/23 20:35 Active Medications: Current Medications Sodium Chloride (Ns) 1,000 mls @ 100 mls/hr IVCONT .Q10H [facility] Sodium Chloride (0.9 % Sodium Chloride Flush 3 Ml Syringe) 3 ml IVFLUSH QSHIFT [facility] Home Medications Medication Instructions Recorded Confirmed Last Taken Type aspirin 81 mg tablet,delayed 81 mg PO DAILY 04/03/22 11/01/23 10/30/23 History release multivitamin 1 tab PO DAILY 04/03/22 11/01/23 11/01/23 History cholecalciferol (vitamin D3) 25 25 mcg PO DAILY 10/26/23 11/01/23 11/01/23 History mcg (1,000 unit) tablet magnesium glycinate 100 mg tablet 125 mg PO BEDTIME 10/26/23 11/01/23 10/31/23 History saw palmetto 450 mg capsule 450 mg PO BEDTIME 10/26/23 11/01/23 10/31/23 History amlodipine 10 mg tablet 10 mg PO BEDTIME 11/01/23 11/01/23 11/01/23 History Physical Exam 2 Vital Signs and Narrative: Vital Signs: Last Vital Signs Temp 99.2 F 11/01/23 22:36 Pulse 107 H 11/01/23 22:36 Resp 16 11/01/23 22:36 BP 146/83 H 11/01/23 22:36 Pulse Ox 92 11/01/23 22:36 O2 Del Method Room Air 11/01/23 22:36 BMI result Body Mass Index 27.1 Constitutional - Awake and Alert, No apparent distress HEENT - Pupils equally round. Heart - tachycardic. No murmur Lungs - Normal lung expansion, Normal respiratory effort, No respiratory distress, CTA bilaterally Abdomen - NT / ND; +BS; No rebound or guarding Extremities - no calf tenderness bilaterally, no swelling Musculoskeletal - Normal inspection, normal ROM Skin - Warm/Dry Neurological - Alert & oriented x3. Normal speech. Psychological - Appropriate affect Results Labs 11/01/23 20:48 11/01/23 20:48 Labs: Laboratory Results - last 24 hr 11/01/23 11/01/23 20:48 22:01 MCV 84.9 MCH 30.1 MCHC 35.4 RDW 12.0 Plt Count 306 MPV 9.0 L Immature Gran % (Auto) 0.5 H Neut % (Auto) 90.2 H Lymph % (Auto) 2.8 L [place] % (Auto) 5.9 Eos % (Auto) 0.4 Baso % (Auto) 0.2 Lymph # (Auto) 0.7 L [place] # (Auto) 1.4 H Eos # (Auto) 0.1 Baso # (Auto) 0.0 Abs Immat Gran (auto) 0.13 H Absolute Neuts (auto) 21.6 H Absolute Nucleated RBC 0.000 Nucleated RBC % (auto) 0.0 Smear Tech's Comments VERIFIED PT 13.1 INR 1.1 Anion Gap 13 Estim Creat Clear Calc 49.3 Estimated GFR > 60 Random Glucose 141 H Lactic Acid 1.0 Calcium 9.0 Magnesium 1.6 Total Bilirubin 1.0 AST 17 ALT 18 Alkaline Phosphatase 86 Total Protein 7.1 Albumin 4.0 Assessment and Plan (1) Gross hematuria: Status: Acute (2) Hypertension: Qualifiers: Hypertension type: unspecified Qualified Code(s): I10 - Essential (primary) hypertension Status: Acute Plan Adan Collins is a 68 years old man admitted with * Gross hematuria. Admit to hospitalist service. Keep NPO. Start IV fluids. Continue CBI. Hold aspirin. Continue to monitor H&H Urology consult -Dr. Oconnor. * Sepsis criteria: Leukocytosis and tachycardia. No obvious source of infection identified. Blood cultures were obtained -will follow results. * Recent episode of MING secondary to obstructive uropathy, renal function improving. Continue to monitor renal function. Avoid nephrotoxic agents. * Hypertension. Continue amlodipine. DVT prophylaxis: SCDs Code status: Full Patient will require hospitalization for at least 2 midnights for gross hematuria management and treatment with CBI, monitoring of H&H and evaluation by urology service Quality Stroke Does the patient have a stroke diagnosis?: No VTE Prior VTE?: No VTE Risk Level:: Medical - moderate - high VTE Device Contraindication: N/A - Device Ordered VTE Drug Contraindication: Treatment Not Indicated
[2023-11-02] MEDS: 0.9 % Sodium Chloride Flush 3 ML SYRINGE IVFLUSH (00:03)
[2023-11-02] MEDS: 0.9 % Sodium Chloride 1,000 ML 100 ML IVCONT ×3 (00:04→19:10)
[2023-11-02 02:42] VITALS: BP 123/77; PULSE 102; RESP 18; TEMP 37.2; O2SAT 94
--- NOTE | 2023-11-02 03:06 | PC.NURSE ---
CBI continues at this time, draining light pink fluid, Pt tolerating well. Report complete, Pt will be transported to room 370, Pt aware of plan.
[2023-11-02 04:00] VITALS: BP 137/70; PULSE 92; RESP 16; TEMP 36.7; O2SAT 94
[2023-11-02 04:27] VITALS: BMI 27.3
[2023-11-02 07:16] LABS: Hematocrit 41.1 % (42.0-52.0); Hemoglobin 14.2 g/dl (14.0-18.0); Mean Corpuscular HGB Conc 34.5 g/dl (31.0-36.0); Mean Corpuscular Hemoglobin 30.3 pg (27.0-33.0); Mean Corpuscular Volume 87.6 fL (80.0-98.0); Mean Platelet Volume 9.4 fL (9.4-12.4); Platelet Count 267 X10*3/uL (160-400); Red Blood Count 4.69 X10*6/uL (4.60-5.80); Red Cell Distribution Width 12.2 % (11.0-16.0); White Blood Count 13.5 X10*3/uL (4.8-10.8)
[2023-11-02 07:37] LABS: Anion Gap 11 (12-20); Blood Urea Nitrogen 12 mg/dL (9-16); Calcium 8.5 mg/dL (8.4-10.2); Carbon Dioxide 27 mmol/L (22-29); Chloride 105 mmol/L (96-108); Creatinine Clr Calc Pharmacy 47.9; Estimated Glomerular Filt Rate 58; Glucose Random 87 mg/dL (60-115); Potassium 3.8 mmol/L (3.3-5.1); Sodium 139 mmol/L (135-145)
[2023-11-02 07:51] VITALS: BP 146/71; PULSE 87; RESP 18; TEMP 36.4; O2SAT 96
--- NOTE | 2023-11-02 08:57 | P.PNIM_ITS ---
Subjective Subjective Date of Service: 11/02/23 Interval History: Urine clearing, no acute events overnight Review of Systems All 12 systems were reviewed and normal except as noted in HPI. Constitutional Constitutional: Reports no additional constitutional complaints Cardiovascular Cardiovascular: Reports no additional cardiovascular complaints Respiratory Respiratory: Reports no additional respiratory complaints Physical Exam 2 Vital Signs: Vital Signs: Last Vital Signs Temp 97.5 F 11/02/23 07:51 Pulse 87 11/02/23 07:51 Resp 18 11/02/23 07:51 BP 146/71 H 11/02/23 07:51 Pulse Ox 96 11/02/23 07:51 O2 Del Method Room Air 11/02/23 07:51 BMI result Body Mass Index 27.3 Constitutional - Awake and Alert, No apparent distress HEENT - Pupils equally round. Heart - tachycardic. No murmur Lungs - Normal lung expansion, Normal respiratory effort, No respiratory distress, CTA bilaterally Abdomen - NT / ND; +BS; No rebound or guarding ; gonzalez catheter in place Extremities - no calf tenderness bilaterally, no swelling Musculoskeletal - Normal inspection, normal ROM Skin - Warm/Dry Neurological - Alert & oriented x3. Normal speech. Psychological - Appropriate affect Objective Data Active Medications Amlodipine Besylate (Amlodipine Besylate 10 Mg Tablet) 10 mg PO BEDTIME PAUL; Protocol Sodium Chloride (Ns) 1,000 mls @ 100 mls/hr IVCONT .Q10H PAUL Last Admin: 11/02/23 00:04 Dose: 100 mls/hr Documented By: SHAWN Sodium Chloride (0.9 % Sodium Chloride Flush 3 Ml Syringe) 3 ml IVFLUSH QSHIFT [facility] Last Admin: 11/02/23 06:56 Dose: Not Given Documented By: SACHIN Non-Admin Reason: IV Running Labs 11/02/23 06:50 11/02/23 06:45 Labs: Laboratory Results - last 24 hr 11/01/23 11/01/23 11/02/23 20:48 22:01 06:45 MCV 84.9 MCH 30.1 MCHC 35.4 RDW 12.0 Plt Count 306 MPV 9.0 L Immature Gran % (Auto) 0.5 H Neut % (Auto) 90.2 H Lymph % (Auto) 2.8 L [place] % (Auto) 5.9 Eos % (Auto) 0.4 Baso % (Auto) 0.2 Lymph # (Auto) 0.7 L [place] # (Auto) 1.4 H Eos # (Auto) 0.1 Baso # (Auto) 0.0 Abs Immat Gran (auto) 0.13 H Absolute Neuts (auto) 21.6 H Absolute Nucleated RBC 0.000 Nucleated RBC % (auto) 0.0 Smear Tech's Comments VERIFIED PT 13.1 INR 1.1 Anion Gap 13 11 L Estim Creat Clear Calc 49.3 47.9 Estimated GFR > 60 58 Random Glucose 141 H 87 Lactic Acid 1.0 Calcium 9.0 8.5 Magnesium 1.6 Total Bilirubin 1.0 AST 17 ALT 18 Alkaline Phosphatase 86 Total Creatine Kinase 51 Total Protein 7.1 Albumin 4.0 11/02/23 06:50 MCV 87.6 MCH 30.3 MCHC 34.5 RDW 12.2 Plt Count 267 MPV 9.4 Immature Gran % (Auto) Neut % (Auto) Lymph % (Auto) [place] % (Auto) Eos % (Auto) Baso % (Auto) Lymph # (Auto) [place] # (Auto) Eos # (Auto) Baso # (Auto) Abs Immat Gran (auto) Absolute Neuts (auto) Absolute Nucleated RBC 0.000 Nucleated RBC % (auto) 0.0 Smear Tech's Comments PT INR Anion Gap Estim Creat Clear Calc Estimated GFR Random Glucose Lactic Acid Calcium Magnesium Total Bilirubin AST ALT Alkaline Phosphatase Total Creatine Kinase Total Protein Albumin Assessment and Plan (1) Gross hematuria: Status: Acute Plan Adan Collins is a 68 years old man admitted with * Gross hematuria. Admit to hospitalist service. Keep NPO. Start IV fluids. Continue CBI. Hold aspirin. Continue to monitor H&H Urology consult -Dr. Oconnor. Gonzalez catheter changed in the ER (concerns of infection) but UA not sent. ?UTI causing hematuria. Ordered UA but maybe skewed as pt started on empiric abx, will continue. * Sepsis criteria: Leukocytosis and tachycardia. No obvious source of infection identified. Blood cultures were obtained -will follow results. * Hypertension. Continue amlodipine. DVT prophylaxis: SCDs Code status: Full Patient will require hospitalization for at least 2 midnights for gross hematuria management and treatment with CBI, monitoring of H&H and evaluation by urology service Quality Stroke Does the patient have a stroke diagnosis?: No VTE Prior VTE?: No VTE Risk Level:: Medical - moderate - high VTE Device Contraindication: N/A - Device Ordered VTE Drug Contraindication: Treatment Not Indicated
--- NOTE | 2023-11-02 09:22 | MHC.CM.PN ---
IMM DELIVERED. PATIENT IS FROM HOME W/ . INDEPENDENT. DENIES USE OF DME OR SERVICES. PCP SHO THOMPSON DO HCP - STATES HE HAS AN HCP W/ [facility] L[facility]ED AGENT. COPY REQUESTED. TO BRING IN. DP: GOAL IS HOME SELF CARE. TO TRANSPORT.
--- NOTE | 2023-11-02 09:34 | PM.UROCN ---
History of Present Illness Consult details Consult date: 11/02/23 Narrative: History of BPH and incomplete bladder emptying. Recent discharge with Singh. Presented to ED with gross hematuria CBI started in the ED. Urine clear with CBI irrigation. Review of Systems Review of Systems: Yes all other systems are reviewed and are negative Constitutional: Constitutional: Reports no additional constitutional complaints Eyes: Eyes: Reports no additional eye complaints ENT: Reports system reviewed and no additional complaints, except as documented Cardiovascular: Cardiovascular: Denies dyspnea Respiratory: Respiratory: Denies dyspnea Gastrointestinal: Gastrointestinal: Reports no additional gastrointestinal complaints Musculoskeletal: Musculoskeletal: Reports no additional musculoskeletal complaints Integumentary/Breasts: Skin/Breast: Reports system reviewed and no additional complaints, except as docu Neurologic: Reports system reviewed and no additional complaints, except as documented Psychiatric: Psychiatric: Reports no additional psychiatric complaints Endocrine: Endocrine: Reports no additional endocrine complaints Hematologic/Lymphatic: Hematologic/Lymphatic: Reports no additional hematologic/lymphatic complaints Allergic/Immunologic: Allergic/Immunologic: Reports no additional allergic/immunologic complaints PMFSH Past Medical History Medical History Hx of peripheral vascular disease Viral pericarditis Diverticulosis Scoliosis BPH (benign prostatic hyperplasia) Other obstructive and reflux uropathy Renal stones History of pulmonary embolism Increased prostate specific antigen (PSA) velocity Family History Family History Father No problems noted. Mother No problems noted. Brother No problems noted. Daughter No problems noted. Daughter No problems noted. Surgical History Surgical History H/O colonoscopy Hx of vasectomy H/O removal of cyst [place] teeth extracted History of tonsillectomy and adenoidectomy Social History Social History Household Members: Spouse Housing: House Do you presently have visiting nurse or other home services: No Alcohol intake: current Alcohol intake frequency: holidays/special occasions only Patient Tobacco Use Status: Former Tobacco user Quit Date: 39 y/o Tobacco use type: Cigarette Second Hand Smoke Exposure: No service: No Meds Allergies Allergy/AdvReac Type Severity Reaction Status Date / Time indomethacin [From INDOCIN] Allergy Intermediate Confusion Verified 11/01/23 20:35 Sulfa (Sulfonamide Allergy Unknown RASH Verified 11/01/23 20:35 Antibiotics) tamsulosin [Flomax] AdvReac Unknown swelling Verified 11/01/23 20:35 Active Medications: Current Medications Amlodipine Besylate (Amlodipine Besylate 10 Mg Tablet) 10 mg PO BEDTIME PAUL; Protocol Sodium Chloride (Ns) 1,000 mls @ 100 mls/hr IVCONT .Q10H [facility] Last Admin: 11/02/23 00:04 Dose: 100 mls/hr Ceftriaxone Sodium 1 gm/ (Sodium Chloride) 50 mls @ 100 mls/hr IV Q24H [facility] Sodium Chloride (0.9 % Sodium Chloride Flush 3 Ml Syringe) 3 ml IVFLUSH QSHIFT [facility] Last Admin: 11/02/23 06:56 Dose: Not Given Home Medications Medication Instructions Recorded Confirmed Last Taken Type aspirin 81 mg tablet,delayed 81 mg PO DAILY 04/03/22 11/01/23 10/30/23 History release multivitamin 1 tab PO DAILY 04/03/22 11/01/23 11/01/23 History cholecalciferol (vitamin D3) 25 25 mcg PO DAILY 10/26/23 11/01/23 11/01/23 History mcg (1,000 unit) tablet magnesium glycinate 100 mg tablet 125 mg PO BEDTIME 10/26/23 11/01/23 10/31/23 History saw palmetto 450 mg capsule 450 mg PO BEDTIME 10/26/23 11/01/23 10/31/23 History amlodipine 10 mg tablet 10 mg PO BEDTIME 11/01/23 11/01/23 11/01/23 History Physical Exam Vital Signs: Vital Signs: Last Vital Signs Temp 97.5 F 11/02/23 07:51 Pulse 87 11/02/23 07:51 Resp 18 11/02/23 07:51 BP 146/71 H 11/02/23 07:51 Pulse Ox 96 11/02/23 07:51 O2 Del Method Room Air 11/02/23 07:51 BMI result Body Mass Index 27.3 Const: General: healthy appearing, no acute distress and well developed Orientation/consciousness: patient oriented x3 HEENT: Head: Yes normocephalic and Yes atraumatic Eyes: Conjunctivae: conjunctivae normal Neck: Neck: Yes normal visual inspection Chest: Chest palpation & inspection: normal inspection of the chest Resp: Effort & Inspection: normal respiratory effort Cardio: Rate: regular rate GI: Inspection: Yes normal to inspection Palpation (GI): Soft to palpation : Other: Singh in place- urine clear on CBI Skin: General skin exam: no rashes or lesions noted Neuro: General: patient oriented x3 Psych: Appearance: grossly normal Affect: normal affect Results Labs 11/03/23 05:22 11/02/23 06:45 Labs: Abnormal lab results 11/01/23 11/02/23 11/02/23 Range/Units 20:48 06:45 06:50 WBC 24.0 H 13.5 H (4.8-10.8) X10*3/uL Hct 41.1 L (42.0-52.0) % MPV 9.0 L (9.4-12.4) fL Immature Gran % (Auto) 0.5 H (0.0-0.4) % Neut % (Auto) 90.2 H (45-73) % Lymph % (Auto) 2.8 L (20-40) % Lymph # (Auto) 0.7 L (1.2-4.9) X10*3/uL [place] # (Auto) 1.4 H (0.1-1.2) X10*3/uL Abs Immat Gran (auto) 0.13 H (0.00-0.03) X10*3/uL Absolute Neuts (auto) 21.6 H (2.0-8.3) x10*3/uL Sodium 134 L (135-145) mmol/L Anion Gap 11 L (12-20) Random Glucose 141 H (60-115) mg/dL Short CBC 11/01/23 11/02/23 Range/Units 20:48 06:50 WBC 24.0 H 13.5 H (4.8-10.8) X10*3/uL Hgb 15.1 14.2 (14.0-18.0) g/dl Hct 42.6 41.1 L (42.0-52.0) % Plt Count 306 267 (160-400) X10*3/uL BMP 11/01/23 11/02/23 20:48 06:45 Sodium 134 L 139 Potassium 3.9 3.8 Chloride 102 105 Carbon Dioxide 23 27 BUN 13 12 Creatinine 1.19 1.23 Calcium 9.0 8.5 Cardiac Enzymes 11/01/23 Range/Units 20:48 Total Creatine Kinase 51 (38-174) U/L Liver Function 11/01/23 Range/Units 20:48 Total Bilirubin 1.0 (0.0-1.0) mg/dL AST 17 (5-37) U/L ALT 18 (0-40) U/L Alkaline Phosphatase 86 (39-117) U/L Albumin 4.0 (3.5-5.0) g/dL All other labs normal. Assessment and Plan (1) Urinary tract infection: Status: Acute (2) Acute retention of urine: Status: Acute (3) Gross hematuria: Status: Acute (4) Bilateral hydronephrosis: Status: Acute Plan CBI overnight. Urine clear this morning. Would hold CBI for now and observe Blood cultures pending. Receiving IV Rocephin Outpatient plan was discussed with patient for [facility] laser with Dr. Oconnor Procedures Date of Service Date of Service: 11/04/23
[2023-11-02 15:04] VITALS: BP 151/72; PULSE 86; RESP 18; TEMP 36.4; O2SAT 96
[2023-11-02 19:11] VITALS: BP 142/73; PULSE 99; RESP 20; TEMP 36.8; O2SAT 93
[2023-11-02] MEDS: amLODIPine Besylate 10 MG TABLET PO (20:06)
[2023-11-02] MEDS: cefTRIAXone sodium 1 GM in 0.9 % Sodium Chloride 50 ML IV (21:40)
[2023-11-03 03:38] VITALS: BP 125/68; PULSE 88; RESP 18; TEMP 36.7; O2SAT 93
[2023-11-03 05:51] LABS: MANUAL DIFF FLAG NO
[2023-11-03 05:59] LABS: Basophils Percent Auto 0.3 % (0-2); Eosinophils Absolute Auto 0.5 X10*3/uL (0.0-0.4); Eosinophils Percent Auto 4.2 % (0-4); Hematocrit 38.8 % (42.0-52.0); Hemoglobin 13.2 g/dl (14.0-18.0); Imm Gran Abs Auto 0.11 X10*3/uL (0.00-0.03); Lymphocytes Absolute Auto 1.3 X10*3/uL (1.2-4.9); Lymphocytes Percent Auto 12.2 % (20-40); Mean Corpuscular Hemoglobin 30.3 pg (27.0-33.0); Mean Corpuscular Volume 89.2 fL (80.0-98.0); Mean Platelet Volume 9.4 fL (9.4-12.4); Monocytes Absolute Auto 0.9 X10*3/uL (0.1-1.2); Neutrophils Absolute Auto 7.9 x10*3/uL (2.0-8.3); Neutrophils Percent Auto 74.3 % (45-73); Platelet Count 269 X10*3/uL (160-400); Red Blood Count 4.35 X10*6/uL (4.60-5.80); Red Cell Distribution Width 12.1 % (11.0-16.0); White Blood Count 10.6 X10*3/uL (4.8-10.8)
[2023-11-03] MEDS: 0.9 % Sodium Chloride 1,000 ML 100 ML IVCONT (06:33)
[2023-11-03 07:19] VITALS: BP 141/73; PULSE 92; RESP 16; TEMP 36.4; O2SAT 95
--- NOTE | 2023-11-03 11:32 | PC.NURSE ---
CBI stopped at 0815 per MD Berry . Urine remains yellow and clear at this time
--- NOTE | 2023-11-03 11:45 | PM.DS ---
DS: Providers Provider Date of Service: 11/03/23 Date of admission: 11/01/23 23:38 Primary care physician: Deacon Bennett DO Consults: 11/01/23 23:47 Consult to Urology Routine Consulting Provider: Fernando Oconnor Reason for consultation: Gross hematuria Has provider been notified: Yes DS: Diagnosis Discharge Diagnosis (1) Urinary tract infection: Status: Acute (2) Acute retention of urine: Status: Acute (3) Gross hematuria: Status: Acute (4) Bilateral hydronephrosis: Status: Acute DS: Summary Hospital Course Hospital Course: HPI : Adan Collins is a 68 years old man with past medical history significant hypertension and BPH and recent hospitalization after presenting with MING secondary to obstructive uropathy requiring indwelling urinary catheter presents tonight to the emergency department complaining of significant blood in urine today. He reported an event of chills, subjective fever and lower abdominal discomfort. He did not report any acute cardiopulmonary symptoms. Patient takes base be aspirin daily. In the ED, he was found to have stable vital signs. His lab blood pressure is 177/93. Maximum temperature is 99.2. Blood workup was remarkable for leukocytosis, 24.0. Hemoglobin is 15.1 and platelets 306. Creatinine is 1.19 (prior 1.8) INR is normal. LFTs are normal. Urinalysis consistent with large blood with normal RBC and WBC. ED tx: Rocephin 1 g IV. Hospital course: Patient was admitted with continues bladder irrigation for gross hematuria. Urine cleared with CBI. No further episodes of hematuria prior to discharge. Hematuria likely due to UTI (although UA was not obtained at the time of Gonzalez exchange). Patient was treated with IV Rocephin while in the hospital. Blood cultures negative prior to discharge. He is stable to discharge with a prescription for p.o. Levaquin. Close follow-up with Urology Status at Discharge Functional status at discharge: independent ambulation Overall status at discharge: patient is back to baseline Time Attestation Total time managing care of this patient today: 20 mintues. Discharge Coordination Time (in mins): 20 Quality: Safe Use of Opioids Does Pt have an Active Cancer Diagnosis on the Problem List?: No Quality: Stroke Does the patient have a stroke diagnosis?: No Physical Exam Vital Signs: Vital Signs: Last Vital Signs Temp 97.5 F 11/03/23 07:19 Pulse 92 11/03/23 07:19 Resp 16 11/03/23 07:19 BP 141/73 H 11/03/23 07:19 Pulse Ox 95 11/03/23 07:19 O2 Del Method Room Air 11/03/23 07:19 BMI result Body Mass Index 27.3 Constitutional - Awake and Alert, No apparent distress HEENT - Pupils equally round. Heart - tachycardic. No murmur Lungs - Normal lung expansion, Normal respiratory effort, No respiratory distress, CTA bilaterally Abdomen - NT / ND; +BS; No rebound or guarding ; gonzalez catheter in place Extremities - no calf tenderness bilaterally, no swelling Musculoskeletal - Normal inspection, normal ROM Skin - Warm/Dry Neurological - Alert & oriented x3. Normal speech. Psychological - Appropriate affect DS: Data Data Completed and Pending Completed studies during hospitalization [Text1]: Procedures Drainage of Bladder with Drainage Device, Via Natural or Artificial Opening (10/26/23) Labs on day of discharge: Laboratory Results - last 24 hr 11/03/23 05:22 WBC 10.6 RBC 4.35 L Hgb 13.2 L Hct 38.8 L MCV 89.2 MCH 30.3 MCHC 34.0 RDW 12.1 Plt Count 269 MPV 9.4 Immature Gran % (Auto) 1.0 H Neut % (Auto) 74.3 H Lymph % (Auto) 12.2 L [place] % (Auto) 8.0 Eos % (Auto) 4.2 H Baso % (Auto) 0.3 Lymph # (Auto) 1.3 [place] # (Auto) 0.9 Eos # (Auto) 0.5 H Baso # (Auto) 0.0 Abs Immat Gran (auto) 0.11 H Absolute Neuts (auto) 7.9 Absolute Nucleated RBC 0.000 Nucleated RBC % (auto) 0.0 Preliminary micro results at discharge 11/01/23 22:11 Blood Culture - Preliminary Blood - Venous No growth after 24 hours. 11/01/23 22:01 Blood Culture - Preliminary Blood - Venous No growth after 24 hours. Discharge Plan Discharge Anticipated Discharge Date/Time: 11/03/23 14:00 Patient Disposition: Home, Self-Care Discharge Diagnosis: Gross hematuria due to UTI Referrals: Deacon Bennett DO [Primary Care Provider] - 1 Week Discharge Medications: New levofloxacin 750 mg tablet 750 mg PO DAILY Qty: 7 0RF Continued finasteride 5 mg tablet 5 mg PO DAILY 90 Days Qty: 90 1RF amlodipine 10 mg tablet 10 mg PO BEDTIME Protocol: Hold for SBP< HOLD for SBP < : 90 magnesium glycinate 100 mg Tablet 125 mg PO BEDTIME Rx Instructions: CHELATED MAGNESIUM saw palmetto 450 mg Capsule 450 mg PO BEDTIME Rx Instructions: give with food (meal/snack) cholecalciferol (vitamin D3) 25 mcg (1,000 unit) Tablet 25 mcg PO DAILY aspirin 81 mg tablet,delayed release (DR/EC) 81 mg PO DAILY multivitamin Tablet 1 tab PO DAILY Discharge Orders: Discharge Order (Routine); Ordered 11/03/23 Ordered By: Staci Berry Diet: Low salt diet Activity on Discharge: As tolerated Stand Alone Forms: Patient Portal Discharge page Care Plan Goals: Follow-up with urology Follow-up with PCP within 1 week Health Concerns: Acute retention of urine status post Gonzalez catheter Plan of Treatment: Levofloxacin 750 mg daily x7 days Assessment: As above
--- NOTE | 2023-11-03 11:51 | MHC.CM.PN ---
IMM 11/02/23 Patient has been discharged to home self care. His will provide transport home.
--- NOTE | 2023-11-03 13:32 | PM.UROPN ---
Subjective Subjective Date of Service: 01/28/24 Interval history: urine clear on abx will f/u Physical Exam Vital Signs: Vital Signs: Last Vital Signs Temp 97.5 F 11/03/23 07:19 Pulse 92 11/03/23 07:19 Resp 16 11/03/23 07:19 BP 141/73 H 11/03/23 07:19 Pulse Ox 95 11/03/23 07:19 O2 Del Method Room Air 11/03/23 07:19 BMI result Body Mass Index 27.3 Const: General: cooperative, healthy appearing, comfortable and no acute distress Orientation/consciousness: patient oriented x3 HEENT: Face and sinus: Yes normal facial exam Mouth: moist mucous membranes Neck: Neck: Yes normal visual inspection, Yes full ROM and Yes trachea midline Chest: Chest palpation & inspection: normal inspection of the chest Resp: Effort & Inspection: normal respiratory effort, able to speak in complete sentences and no respiratory distress GI: Inspection: Yes normal to inspection Back/Spine/Pelvis: Cervical Spine: normal cervical lordosis Thoracic/Lumbar Spine: thoracic and lumbar spine normal to inspection Skin: General skin exam: no rashes or lesions noted Neuro: General: patient oriented x3, tone normal and moves all extremities Extrem: General: Yes normal to inspection and Yes capillary refill normal Urology Results Labs 11/03/23 05:22 11/02/23 06:45 Labs: Laboratory Results - last 24 hr 11/03/23 05:22 WBC 10.6 RBC 4.35 L Hgb 13.2 L Hct 38.8 L MCV 89.2 MCH 30.3 MCHC 34.0 RDW 12.1 Plt Count 269 MPV 9.4 Immature Gran % (Auto) 1.0 H Neut % (Auto) 74.3 H Lymph % (Auto) 12.2 L [place] % (Auto) 8.0 Eos % (Auto) 4.2 H Baso % (Auto) 0.3 Lymph # (Auto) 1.3 [place] # (Auto) 0.9 Eos # (Auto) 0.5 H Baso # (Auto) 0.0 Abs Immat Gran (auto) 0.11 H Absolute Neuts (auto) 7.9 Absolute Nucleated RBC 0.000 Nucleated RBC % (auto) 0.0 Progress Note: A&P Assessment and plan (1) Urinary retention with incomplete bladder emptying: Status: Acute Assessment and Plan: gonzalez catheter responding to antibiotics (2) Urinary tract infection: Status: Acute Time Spent With Patient Time: Total time managing care of this patient today ____ minutes. Progress Note: Quality Stroke Does the patient have a stroke diagnosis?: No
--- NOTE | 2023-11-03 13:47 | PC.NURSE ---
Pt to be discharged to home with gonzalez cath in place . re-enforced gonzalez cath care , pt is comfortable with care of gonzalez as he came into hospital with cath in place . sent home with supplies
== END 2023-11-03 13:54 | disposition home or self-care (01) | DRG 690 ==
LOC: HO.ED 21:35 → HO.EDOVER 23:46 → HO.S3 11-02 02:33
PROVIDERS: Physician Assistant; Admitting Provider Internal Medicine; Emergency Provider Internal Medicine; PCP Internal Medicine; Visit Provider Student in an Organized Health Care Education/Training Program
DX: N13.6 Pyonephrosis (principal); N13.8 Other obstructive and reflux uropathy; R31.0 Gross hematuria; I10 Essential (primary) hypertension; N40.1 Benign prostatic hyperplasia with lower urinary tract symptoms; R33.8 Other retention of urine; Z96.0 Presence of urogenital implants; Z79.82 Long term (current) use of aspirin; Z79.899 Other long term (current) drug therapy
CPT/HCPCS: 36415; 80048; 80053; 82550; 83605; 83735; 85025; 85027; 85610; 87040; 99285; J0696

== ENCOUNTER → 2023-11-01 23:38 | Outpatient (BNV) | payer MEDICARE, SELFPAY | PROVIDERS: Admitting Provider Internal Medicine; Emergency Provider Internal Medicine; PCP Internal Medicine; Visit Provider Urology | DX: R33.9 Retention of urine, unspecified (principal); N39.0 Urinary tract infection, site not specified | CPT/HCPCS: 99222; 99232 ==

== ENCOUNTER → 2023-11-01 23:38 | Outpatient (BNV) | payer MEDICARE, SELFPAY | PROVIDERS: Admitting Provider Internal Medicine; Emergency Provider Internal Medicine; PCP Internal Medicine; Visit Provider Internal Medicine | DX: N39.0 Urinary tract infection, site not specified (principal); R33.8 Other retention of urine; R31.0 Gross hematuria; N13.30 Unspecified hydronephrosis | CPT/HCPCS: 99222; 99232; 99238 ==

== ENCOUNTER 2023-11-07 10:43 | Outpatient (REF) | payer MEDICARE, SELFPAY ==
[2023-11-07 14:36] LABS: MANUAL DIFF FLAG NO
[2023-11-07 15:06] LABS: Anion Gap 11 (12-20); Blood Urea Nitrogen 14 mg/dL (9-16); Calcium 9.1 mg/dL (8.4-10.2); Carbon Dioxide 29 mmol/L (22-29); Chloride 102 mmol/L (96-108); Estimated Glomerular Filt Rate 54; Glucose Random 70 mg/dL (60-115); Potassium 3.9 mmol/L (3.3-5.1); Sodium 138 mmol/L (135-145)
[2023-11-07 15:14] LABS: Basophils Percent Auto 0.3 % (0-2); Eosinophils Absolute Auto 0.3 X10*3/uL (0.0-0.4); Eosinophils Percent Auto 3.4 % (0-4); Hematocrit 40.3 % (42.0-52.0); Hemoglobin 13.8 g/dl (14.0-18.0); Imm Gran Abs Auto 0.09 X10*3/uL (0.00-0.03); Imm Gran Pct Auto 1.2 % (0.0-0.4); Lymphocytes Percent Auto 13.8 % (20-40); Mean Corpuscular HGB Conc 34.2 g/dl (31.0-36.0); Mean Corpuscular Hemoglobin 30.3 pg (27.0-33.0); Mean Corpuscular Volume 88.6 fL (80.0-98.0); Mean Platelet Volume 9.8 fL (9.4-12.4); Monocytes Absolute Auto 0.7 X10*3/uL (0.1-1.2); Monocytes Percent Auto 9.5 % (2-11); Neutrophils Absolute Auto 5.4 x10*3/uL (2.0-8.3); Neutrophils Percent Auto 71.8 % (45-73); Platelet Count 332 X10*3/uL (160-400); Red Blood Count 4.55 X10*6/uL (4.60-5.80); Red Cell Distribution Width 12.1 % (11.0-16.0); White Blood Count 7.6 X10*3/uL (4.8-10.8)
== END 2023-11-07 10:44 | disposition home or self-care (01) ==
LOC: HO.WFDLDS 10:43
PROVIDERS: Visit Provider Internal Medicine
DX: I10 Essential (primary) hypertension (principal); N40.1 Benign prostatic hyperplasia with lower urinary tract symptoms; N13.8 Other obstructive and reflux uropathy; E55.9 Vitamin D deficiency, unspecified
CPT/HCPCS: 36415; 80048; 83735; 84100; 85025

== ENCOUNTER 2023-11-19 16:11 | Outpatient (REF) | payer MEDICARE, SELFPAY ==
[2023-11-19 16:28] LABS: MANUAL DIFF FLAG NO
[2023-11-19 17:15] LABS: Appearance Urine Clear; Color Urine Yellow; Glucose Urine UA Negative (Negative); Leukocyte Esterase Urine Small (1+) (Negative); Nitrite Urine Negative (Negative); Specific Gravity - Urine <= 1.005 (1.005-1.025); UMIC TRIGGER UA YES; Urine Blood Negative (Negative); Urine Ketones Negative (Negative); Urine Protein Negative (Neg-Trace)
[2023-11-19 17:18] LABS: Basophils Percent Auto 0.4 % (0-2); Eosinophils Absolute Auto 0.3 X10*3/uL (0.0-0.4); Eosinophils Percent Auto 4.7 % (0-4); Hematocrit 41.2 % (42.0-52.0); Hemoglobin 14.4 g/dl (14.0-18.0); Imm Gran Abs Auto 0.06 X10*3/uL (0.00-0.03); Imm Gran Pct Auto 0.9 % (0.0-0.4); Lymphocytes Absolute Auto 1.3 X10*3/uL (1.2-4.9); Lymphocytes Percent Auto 19.8 % (20-40); Mean Corpuscular Hemoglobin 30.7 pg (27.0-33.0); Mean Corpuscular Volume 87.8 fL (80.0-98.0); Monocytes Absolute Auto 0.5 X10*3/uL (0.1-1.2); Monocytes Percent Auto 7.5 % (2-11); Neutrophils Absolute Auto 4.5 x10*3/uL (2.0-8.3); Neutrophils Percent Auto 66.7 % (45-73); Platelet Count 246 X10*3/uL (160-400); Red Blood Count 4.69 X10*6/uL (4.60-5.80); Red Cell Distribution Width 12.9 % (11.0-16.0); White Blood Count 6.8 X10*3/uL (4.8-10.8)
[2023-11-19 17:29] LABS: Bacteria Urine None Seen (None Seen); Hyaline Casts Urine 0-2 /LPF (0-2); RBC Urine 0-2 /HPF (0-2); Squamous Epithelial Cell Urine 0-2 /HPF (0-2); WBC Urine 0-5 /HPF (0-5)
[2023-11-19 17:53] LABS: Anion Gap 11 (12-20); Blood Urea Nitrogen 12 mg/dL (9-16); Carbon Dioxide 29 mmol/L (22-29); Chloride 105 mmol/L (96-108); Estimated Glomerular Filt Rate > 60; Glucose Random 106 mg/dL (60-115); Magnesium 1.8 mg/dL (1.6-2.6); Phosphorus 2.6 mg/dL (2.7-4.5); Potassium 3.7 mmol/L (3.3-5.1); Sodium 141 mmol/L (135-145)
== END 2023-11-19 16:12 | disposition home or self-care (01) ==
LOC: HO.LAB 16:11
PROVIDERS: PCP Internal Medicine; Visit Provider Internal Medicine
DX: N40.1 Benign prostatic hyperplasia with lower urinary tract symptoms (principal); I10 Essential (primary) hypertension
CPT/HCPCS: 36415; 80048; 81001; 83735; 84100; 85025

== ENCOUNTER 2023-11-23 10:29 | Outpatient (REF) | payer MEDICARE, SELFPAY ==
--- NOTE | ~2023-11-23 | US_ITS ---
EXAMINATION: US RETROPERITONEAL LIMITED (RENAL ONLY) CLINICAL INFORMATION: Calculus of kidney. COMPARISON: Renal ultrasound 10/28/2023 and 07/25/2021. CT abdomen and pelvis 10/26/2023. X-ray KUB 08/27/2023. TECHNIQUE: Real-time imaging of the kidneys. FINDINGS: RIGHT KIDNEY: 9.8 x 4.5 x 5.4 cm (SAG x AP x TRV). The kidney is normal in size, contour, and echogenicity. Renal cortical thickness is normal. No renal calculi. There is very mild hydronephrosis. At the lower pole, a 1.8 cm benign, simple exophytic cyst is seen, for which no imaging follow-up as remote amended. LEFT KIDNEY: 10.2 x 5.2 x 5.4 cm (SAG x AP x TRV). The kidney is normal in size, contour, and echogenicity. Renal cortical thickness is normal. No calculi or focal parenchymal lesions. There is very mild hydronephrosis. US/US renal BI IMPRESSION: There is very mild bilateral hydronephrosis. No renal calculus or mass is noted.
== END 2023-11-23 10:30 | disposition home or self-care (01) ==
LOC: HO.US 10:29
PROVIDERS: Visit Provider Urology
DX: N20.0 Calculus of kidney (principal); N13.30 Unspecified hydronephrosis
CPT/HCPCS: 76775

== ENCOUNTER 2023-11-29 | Outpatient (REF) | payer MEDICARE, SELFPAY | END 2023-11-29 00:01 | disposition home or self-care (01) | LOC: CF | PROVIDERS: PCP Internal Medicine; Visit Provider Internal Medicine Hypertension Specialist | DX: N20.0 Calculus of kidney (principal); N13.30 Unspecified hydronephrosis; N17.9 Acute kidney failure, unspecified; I12.9 Hypertensive chronic kidney disease with stage 1 through stage 4 chronic kidney disease, or unspecified chronic kidney disease; N18.9 Chronic kidney disease, unspecified; N40.1 Benign prostatic hyperplasia with lower urinary tract symptoms; N13.8 Other obstructive and reflux uropathy | CPT/HCPCS: 99202 ==

== ENCOUNTER 2023-11-29 09:30 | Outpatient (AMB) | payer MEDICARE, SELFPAY ==
--- NOTE | 2023-11-29 09:32 | HO.NEPHOV_ITS ---
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 In October 2023 he was admitted with MING due to obstructive uropathy. Creatinine was above 5 mg/dL. Singh was inserted and renal function promptly returned to baseline of around 1.2 mg. Since this time his blood pressure has been elevated and he was started on amlodipine. The dose was decreased from 10 mg down to 5 mg recently. He has been monitoring his blood pressure at home which is in the acceptable range. He is also closely monitoring his urine output. Urine output is anywhere between 3340-8908 mL per 24 hours. He admits to drinking plenty of fluids in an attempt to minimize stone formation. He did have 1 episode of mild hyponatremia with a serum sodium of 134 millimoles. The urine specific gravity has been consistently less than 1.005 last few times. He has a history of pulmonary embolism few years ago. He is on aspirin. It appears that he is undergone workup and no definite to coagulopathy has been diagnosed. At present he has no headache nausea or vomiting no abdominal pain diarrhea constipation no edema no shortness of breath no weight loss. [facility] Medical History Hx of peripheral vascular disease Viral pericarditis Diverticulosis Scoliosis BPH (benign prostatic hyperplasia) Other obstructive and reflux uropathy Renal stones History of pulmonary embolism Increased prostate specific antigen (PSA) velocity Surgical History H/O colonoscopy Hx of vasectomy H/O removal of cyst [place] teeth extracted History of tonsillectomy and adenoidectomy Family History Father No problems noted. Mother No problems noted. Brother No problems noted. Daughter No problems noted. Daughter No problems noted. Social History Household Members: Spouse Housing: House Do you presently have visiting nurse or other home services: No Alcohol intake: current Alcohol intake frequency: holidays/special occasions only Patient Tobacco Use Status: Former Tobacco user Quit Date: 39 y/o Tobacco use type: Cigarette Second Hand Smoke Exposure: No service: No Physical Exam Vital Signs: Last Vital Signs Pulse 100 11/29/23 09:34 BP 148/84 H 11/29/23 09:34 Pulse Ox 97 11/29/23 09:34 Oxygen Delivery Method Room Air 11/29/23 09:34 BMI result Body Mass Index 28.2 Const General: comfortable Nutritional Appearance: well nourished Orientation/consciousness: patient oriented x3 HEENT Head: No normal to inspection Mouth: moist mucous membranes Neck Neck: Yes supple and Yes no JVD Resp Auscultation: clear to auscultation bilaterally, no rales and rub present Cardio Jugular venous distension: no JVD Palpation: no palpable S3 and no palpable S4 Heart sounds: no rubs GI Palpation (GI): Soft to palpation and nontender Percussion: No Fluid wave present General: Yes no CVA tenderness Back/Spine/Pelvis Back: no CVA tenderness Skin General skin exam: no rashes or lesions noted Neuro General: patient oriented x3 Extrem General: Yes no pedal edema and No clubbing Results Reviewed Nephrology Results: Hgb 14.4 g/dl (14.0-18.0) 11/19/23 WBC 6.8 X10*3/uL (4.8-10.8) 11/19/23 Plt Count 246 X10*3/uL (160-400) 11/19/23 Sodium 141 mmol/L (135-145) 11/19/23 Potassium 3.7 mmol/L (3.3-5.1) 11/19/23 Chloride 105 mmol/L (96-108) 11/19/23 Carbon Dioxide 29 mmol/L (22-29) 11/19/23 BUN 12 mg/dL (9-16) 11/19/23 Creatinine 1.17 mg/dL (0.5-1.4) 11/19/23 Calcium 9.0 mg/dL (8.4-10.2) 11/19/23 Phosphorus 2.6 mg/dL (2.7-4.5) L 11/19/23 Urine Protein Negative mg/dL (Neg-Trace) 11/19/23 Renal US 11/23/23 Assessment & Plan Assessment & Plan (1) Renal stones: Code(s): N20.0 - Calculus of kidney Category: Medical (2) Hypertension: Code(s): I10 - Essential (primary) hypertension Category: Medical Qualifiers: Hypertension type: unspecified Qualified Code(s): I10 - Essential (pr imary) hypertension (3) Acute kidney injury: Code(s): N17.9 - Acute kidney failure, unspecified Category: Medical Plan Adan had MING due to obstructive uropathy. Renal function is back to baseline once the obstruction has been relieved. Urine sediments are bland without any significant proteinuria or hematuria. No reason to believe he has any active glomerular or interstitial disease at this time. His urine output is close to 4 L. I believe he should cut back on the fluid intake and the goal would be to maintain a urine output between 2-3 L per 24 hours. Excessive water intake puts him at risk of developing hyponatremia. At present the urine is maximally concentrated and any further increase in free water will lead to hyponatremia. Hypertension Encouraged him to stay on low-sodium diet Continue with amlodipine and hopefully based on the home blood pressure readings we could taper and discontinue amlodipine. BPH Await surgery and follow-up with Urology. Orders: Orders Osmolality, Serum 4 Weeks I10 - Essential (primary) hypertension, N20.0 - Calculus of kidney Sodium Urine Random 4 Weeks I10 - Essential (primary) hypertension, N18.9 - Chronic kidney disease, unspecified, N20.0 - Calculus of kidney Basic Metabolic Panel 4 Weeks I10 - Essential (primary) hypertension, N20.0 - Calculus of kidney Osmolality Urine 4 Weeks I10 - Essential (primary) hypertension, N20.0 - Calculus of kidney
[2023-11-29 09:34] VITALS: BP 148/84; PULSE 100; O2SAT 97; BMI 28.2
== END 2023-11-29 10:19 | disposition home or self-care (01) ==
PROVIDERS: PCP Internal Medicine; Referring Provider Internal Medicine; Visit Provider Internal Medicine Hypertension Specialist
DX: N20.0 Calculus of kidney (principal); I10 Essential (primary) hypertension; N17.9 Acute kidney failure, unspecified
CPT/HCPCS: 99204

== ENCOUNTER 2023-12-04 15:13 | Outpatient (AMB) | payer MEDICARE, SELFPAY ==
--- NOTE | 2023-12-04 15:14 | A.OFFVIS_ITS ---
Intake Visit Reasons: GreenLight Surgery Concerns(Surgery 12/10) Intake Note: Patient is Present for Telephone Discussion on Greenlight procedure Urology Med:Finasteride, Antibiotic Allergy: Sulfa Antibiotics Blood Thinner: None Allergies indomethacin [From INDOCIN] Allergy (Intermediate, Verified 12/04/23 15:15) Confusion Sulfa (Sulfonamide Antibiotics) Allergy (Unknown, Verified 12/04/23 15:15) RASH tamsulosin [Flomax] Adverse Reaction (Unknown, Verified 12/04/23 15:15) swelling HPI Comments Details: Adan is a very pleasant male. He is a patient of Dr. Bennett. He is seen for following urologic conditions. - lower urinary tract symptoms - nephrolithiasis - urinary retention Telemedicine Evaluation 15 min Consultation Athlete Builder Nishant Video attempted Planned GreenLight laser coming up Understands that may need to perform CIC following the procedure Initially unlikely to do suprapubic placement unless required Adan had a number of questions regarding GreenLight laser and these were addressed. Particularly focused around questions incontinence, erectile dysfunction and possible retrograde ejaculation. 11/03 Hospital admission - 1600 cc in the bladder Found to bilateral hydronephrosis and elevated creatinine Singh catheter placed - Hydroureteronephrosis started to resolve and creatinine found to fall from 5-1.8 prior to discharge Cr 12/04 1.2 Plan for laser prostatectomy Discussed possible suprapubic tube Recent MRI on spine shows scoliosis with compression in the L3 through L5 range. Is back undergoing chiropractic manipulation with some improvement in bladder emptying. Lower urinary tract symptoms Longstanding management Previous prostate procedures Had Botox to prostate 2014 - for urge/frequency, prior rapaflo usage Has a consistently high bladder residual PVR 03/02 700, 09/03 750 PSA 01/30 2.9, 12/31 3.2, 04/03 3.0 Nephrolithiasis previously renal cyst on ultrasound Imaging - 08/02 renal ultrasound left cyst 1.5 cm continue surveillance [facility] Medical History (Updated 12/06/23 @ 16:44 by Fernando Oconnor MD) Urinary retention with incomplete bladder emptying Hx of peripheral vascular disease Viral pericarditis Diverticulosis Scoliosis BPH (benign prostatic hyperplasia) Other obstructive and reflux uropathy Renal stones History of pulmonary embolism Increased prostate specific antigen (PSA) velocity Surgical History H/O colonoscopy Hx of vasectomy H/O removal of cyst [place] teeth extracted History of tonsillectomy and adenoidectomy Family History Father No problems noted. Mother No problems noted. Brother No problems noted. Daughter No problems noted. Daughter No problems noted. Social History Household Members: Spouse Housing: House Do you presently have visiting nurse or other home services: No Alcohol intake: current Alcohol intake frequency: holidays/special occasions only Patient Tobacco Use Status: Former Tobacco user Quit Date: 39 y/o Tobacco use type: Cigarette Second Hand Smoke Exposure: No service: No Review of Systems Const All systems reviewed & are unremarkable except as noted in HPI and below Reports no additional complaints Resp Reports no additional complaints GI Reports no additional complaints Reports as per HPI Musc Reports no additional complaints Physical Exam Telemedicine evaluation Appropriate responses Regular breathing rate and rhythm HEENT Head: Yes normal to inspection Ears: hearing grossly normal bilaterally Eyes General: appearance normal, both eyes and all related structures Neck Neck: Yes normal visual inspection Chest Chest palpation & inspection: normal inspection of the chest Resp Effort & Inspection: normal respiratory effort and able to speak in complete sentences Telehealth Telehealth Location of provider rendering services: practice address Location of patient: address on file Patient Identification confirmed using: Name, : Yes Telehealth method: video Patient verbally consented to treatment: Yes Patient verbally consented to billing insurance company: Yes Patient informed of any privacy concerns related to visit: Yes Minutes spent on Phone/Video with Pt.: 20 Assessment & Plan Assessment & Plan (1) Urinary tract infection: Code(s): N39.0 - Urinary tract infection, site not specified Category: Medical (2) Urinary retention with incomplete bladder emptying: Code(s): R33.9 - Retention of urine, unspecified Category: Medical Plan Risks, benefits and alternatives to therapy were discussed. These include but are not limited to infection, bleeding, damage to local organs and tissues, need for further interventions. Anesthetic risks regarding cardiac arrhythmia, blood clots, and potential mortality were discussed. The patient understands the typical recovery time and the outpatient nature of the procedure. After consideration of these risks the patient gives full informed consent and they wish to move ahead with the procedure. GreenLight laser prostatectomy Patient Instructions: Imaging studies, laboratory and physical exam results were discussed and reviewed in detail. No major barriers to patient understanding were identified. An opportunity to ask questions regarding the treatment plan was provided. All questions were answered. The patient expressed understanding and agreement with the above treatment plan. The patient is aware they should contact our office by phone for worsening of their current condition or the appearance of new urologic symptoms. Compliance is encouraged with any medications and followup testing that is ordered. It is a privilege to participate in the urologic care of your patient. If you have any questions or concerns regarding treatment for the above conditions, or other urologic issues, please do not hesitate to contact me. The office telephone contact is [phone]. This note is constructed using voice recognition software. While every effort has been made to ensure accuracy credit charge authorizer errors may have been included. Yours sincerely, Dr Fernando Oconnor MD, ED [facility] - Urology Providers of Expert, Compassionate Care for the Genitourinary System Coding Level of Care Code Tele Est Pt Level 4 (79505) Complex EM visit Add On G2211 Diagnoses Urinary tract infection N39.0 Urinary retention with incomplete bladder emptying R33.9
== END 2023-12-04 15:52 | disposition home or self-care (01) ==
LOC: HO.HUSH 15:13
PROVIDERS: PCP Internal Medicine; Visit Provider Urology
DX: N39.0 Urinary tract infection, site not specified (principal); R33.9 Retention of urine, unspecified
CPT/HCPCS: 99214; G2211

== ENCOUNTER → 2023-12-04 15:13 | Outpatient (BNVA) | payer MEDICARE, SELFPAY | PROVIDERS: PCP Internal Medicine; Visit Provider Urology ==

== ENCOUNTER 2023-12-10 08:50 | Day surgery (SDC) | payer MEDICARE, SELFPAY ==
--- NOTE | 2023-12-07 09:07 | P.CONAN_ITS ---
Documented by User: Luci Arrieta NP 12/07/23 09:12 HPI - Anesthesia Eval Consult details Narrative: 68yo M for Laser Ablation Prostate w/Green Light [facility] admit 10/2023 with MING d/t obstruction. Had f/u with [facility] nephro. Pt renal function back to baseline. Hx of PE, asa only now, ok to hold per PCP PENDING SALE TO [facility] Active Problems Active Problems: All Active Problems Urinary retention with incomplete bladder emptying (Acute) Urinary tract infection (Acute) Hypertension (Acute) Leg edema (Acute) Varicose veins of left lower extremity with inflammation (Acute) Umbilical hernia (Acute) Hematoma of right lower leg (Acute) Renal stones (Acute) Past Medical History Medical History Urinary retention with incomplete bladder emptying Hx of peripheral vascular disease Viral pericarditis Diverticulosis Scoliosis BPH (benign prostatic hyperplasia) Other obstructive and reflux uropathy Renal stones History of pulmonary embolism Increased prostate specific antigen (PSA) velocity Family History Family History Father No problems noted. Mother No problems noted. Brother No problems noted. Daughter No problems noted. Daughter No problems noted. Surgical History Surgical History H/O colonoscopy Hx of vasectomy H/O removal of cyst [place] teeth extracted History of tonsillectomy and adenoidectomy History of Problems with Anesthesia: No Social History Social History Household Members: Spouse Housing: House Do you presently have visiting nurse or other home services: No Alcohol intake: current Alcohol intake frequency: holidays/special occasions only Patient Tobacco Use Status: Former Tobacco user Quit Date: 39 y/o Tobacco use type: Cigarette Second Hand Smoke Exposure: No Use of substances other than those prescribed or required for medical reasons: No Are you DNR?: No Advance Directives: No Advance Directives Information Provided: Yes service: No Meds Allergies Allergy/AdvReac Type Severity Reaction Status Date / Time indomethacin [From INDOCIN] Allergy Intermediate Confusion Verified 12/10/23 09:23 Sulfa (Sulfonamide Allergy Unknown RASH Verified 12/10/23 09:23 Antibiotics) tamsulosin [Flomax] AdvReac Unknown swelling Verified 12/10/23 09:23 Home Medications ?Medication ?Instructions ?Recorded ?Confirmed ?Last Taken ?Type multivitamin 1 tab PO DAILY 04/03/22 12/10/23 12/09/23 History cholecalciferol (vitamin D3) 25 25 mcg PO DAILY 10/26/23 12/10/23 12/09/23 History mcg (1,000 unit) tablet magnesium glycinate 100 mg tablet 125 mg PO BEDTIME 10/26/23 12/10/23 12/09/23 History amlodipine 10 mg tablet 5 mg PO BEDTIME 11/29/23 12/10/23 12/09/23 History ascorbic acid (vitamin C) 1,000 mg 1 g PO DAILY 11/30/23 12/10/23 12/09/23 History capsule Exam Pertinent Lab Results Pertinent Lab Results: Laboratory Tests 11/19/23 16:27 WBC 6.8 Hgb 14.4 Hct 41.2 L Plt Count 246 D Sodium 141 Potassium 3.7 Chloride 105 Carbon Dioxide 29 BUN 12 Creatinine 1.17 Assessment and Plan Assessment Anesthesia Assessment: Chart Reviewed Final Anesthetic Review History of Problems with Anesthesia: No Documented by User: Marsha Syed MD 12/10/23 10:35 PMFSH Past Medical History Medical History Urinary retention with incomplete bladder emptying Hx of peripheral vascular disease Viral pericarditis Diverticulosis Scoliosis BPH (benign prostatic hyperplasia) Other obstructive and reflux uropathy Renal stones History of pulmonary embolism Increased prostate specific antigen (PSA) velocity Family History Family History Father No problems noted. Mother No problems noted. Brother No problems noted. Daughter No problems noted. Daughter No problems noted. Family history of problems with anesthesia: No Surgical History Surgical History H/O colonoscopy Hx of vasectomy H/O removal of cyst [place] teeth extracted History of tonsillectomy and adenoidectomy Social History Social History Household Members: Spouse Housing: House Do you presently have visiting nurse or other home services: No Alcohol intake: current Alcohol intake frequency: holidays/special occasions only Patient Tobacco Use Status: Former Tobacco user Quit Date: 39 y/o Tobacco use type: Cigarette Second Hand Smoke Exposure: No Use of substances other than those prescribed or required for medical reasons: No Are you DNR?: No Advance Directives: No Advance Directives Information Provided: Yes service: No Meds Allergies Allergy/AdvReac Type Severity Reaction Status Date / Time indomethacin [From INDOCIN] Allergy Intermediate Confusion Verified 12/10/23 09:23 Sulfa (Sulfonamide Allergy Unknown RASH Verified 12/10/23 09:23 Antibiotics) tamsulosin [Flomax] AdvReac Unknown swelling Verified 12/10/23 09:23 Home Medications ?Medication ?Instructions ?Recorded ?Confirmed ?Last Taken ?Type multivitamin 1 tab PO DAILY 04/03/22 12/10/23 12/09/23 History cholecalciferol (vitamin D3) 25 25 mcg PO DAILY 10/26/23 12/10/23 12/09/23 History mcg (1,000 unit) tablet magnesium glycinate 100 mg tablet 125 mg PO BEDTIME 10/26/23 12/10/23 12/09/23 History amlodipine 10 mg tablet 5 mg PO BEDTIME 11/29/23 12/10/23 12/09/23 History ascorbic acid (vitamin C) 1,000 mg 1 g PO DAILY 11/30/23 12/10/23 12/09/23 History capsule Exam Airway Mallampati Class: III TM Dist: >3cm Neck ROM: Full Assessment and Plan Assessment Anesthesia Assessment: Anesthesia Plan Discussed Final Anesthetic Review Family History of Problems with Anesthesia: No NPO: Yes ASA Class: II Final Preanesthetic Review: No Changes in Pt Med Stat, Meds/Allgs Chart Reviewed, Consent Obtained/Reviewed and Anes Risks/Benef Reviewed Patient Risk: Low Procedure Risk: Low Anesthetic Plan Anesthetic Plan: GA Disposition: Standard PACU
[2023-12-10] VITALS (7 sets, daily range): BP systolic 136–166; BP diastolic 70–95; PULSE 68–80; RESP 12–20; TEMP 36.3–36.7; O2SAT 93–98; BMI 27.5
[2023-12-10] MEDS: Lactated Ringers 1,000 ML 100 ML IVCONT (09:34)
--- NOTE | 2023-12-10 10:54 | MHC.SHP ---
Pre-Procedural Eval Section A - 24 Hr Update-Section A only Date of Service: 12/10/23 The patient is an INPATIENT: No Changes since office visit: No Cold of Flu in the past 2 weeks, No New Medical Problems, No Changes in Medication and No Patient answered all questions The patient has been examined within 24 hours of the surgical procedure. The History & Physical has been completed within 30 days and I have reviewed it.: Yes Section B - Complete if H&P > 30 days Chief Complaint: Other retention of urine Allergies: Allergies Allergy/AdvReac Type Severity Reaction Status Date / Time indomethacin [From INDOCIN] Allergy Intermediate Confusion Verified 12/10/23 09:23 Sulfa (Sulfonamide Allergy Unknown RASH Verified 12/10/23 09:23 Antibiotics) tamsulosin [Flomax] AdvReac Unknown swelling Verified 12/10/23 09:23 Plan Diagnosis/Plan: Unchanged (GreenLight laser prostatectomy) I have reviewed the history and physical and performed a pertinent physical examination on my patient. No changes have occurred unless specified. Time Spent With Patient Time: Total time managing care of this patient today ____ minutes.
--- NOTE | 2023-12-10 13:04 | W.PM.OPN ---
Operative Note Operative Note Date of Service: 12/10/23 Narrative: PreOperative Diagnosis: Bladder outlet obstruction Post Operative Diagnosis: Bladder outlet obstruction Procedure: GreenLight Laser Enucleation of the prostate CPT 39685 Surgeon: Dr Fernando Oconnor Anesthesia: General History of bladder outlet obstruction. Previously treated with alpha blockers. Had experienced urinary retention. Failed voiding trial x3 times. Known large prostate. Risks and benefits have been discussed. Focus was placed on development of retrograde ejaculation which is a normal part of this procedure. Procedure: After informed consent was verified the patient was brought to the operating room and placed in a supine position. Anesthesia was administered per protocol. Patient was placed in modified dorsal lithotomy position and prepped and draped in a sterile fashion. Safety pause time-out was confirmed. Antibiotics have been given. A Twenty-four [place] laser cystoscope was inserted per urethra. No abnormalities were found of the anterior and bulbar urethra. The bladder was examined and both ureteric orifices were seen in their normal positions away from the area of interest. Using a GreenLight laser with settings of 80 w incisions were made at the 5 and 7 o'clock position. The incisions were taken down from the bladder neck down to the level of the veru. These were gradually deepened in order to define the lateral aspects of the median lobe area. Once clearly defined they will also extended in the lateral directions in order to create a deep groove. The median lobe was then ablated and enucleated tissue released into the bladder with the laser power increased to 120 W. The median lobe was extremely large. Was broad based. Both ureteric orifices were kept in view throughout. The median lobe had to be divided vertically in half and then into cord is before ablation from each lateral aspect be performed. Very large amount of prostate tissue was released into the bladder. Once the median lobe area had been cleared attention was directed to the lateral lobes. Starting with the patient's left lateral lobe. First the 05:00 o'clock groove was further developed. This was moved in the lateral direction to undermine the tissue on the lateral side running from the bladder neck to the prostate apex. Focus was then placed on the laser at the 1 o'clock position to developing a secondary groove down to the level of bladder fibers. The creation of a second deep groove defined a segment of intervening tissue similar to a slice of orange. At the apex of the prostate the 2 grooves were linked the us releasing the intervening tissue. This tissue was then removed with a combination of enucleation and ablation working from the apex toward the bladder neck. A similar procedure was repeated on the patient's right-hand side. The only differences being the position of the lateral groove at he 7 'oclock positioin and the secondary groove at the 11 o'clock position, Otherwise the procedure was developed in a mirror fashion. After the majority of tissue had been debulked remnant tissue was ablated with the side fire laser and the curve of the prostate followed up each side wall clearly defining the anterior remnant strip that remained between the 11 and 1 o'clock positions. When this was had been completed debris and pieces of prostate were removed from the bladder with irrigation. Both ureteric orifices were reviewed again in shown to be patent in away from any areas of energy damage. The apical area was reviewed in any stray ooze was controlled. A 22 [place] 30 cc balloon Singh catheter was placed over a stylet into the bladder. Clear efflux was obtained upopn irrigation with a Av piston syringe. 60 cc was placed in the balloon and gentle traction was placed. A snap was used to hold tension on the catheter to control bleeding during patient moved and transported. A drainage bag was placed. Once transportation is complete to the PACU the snap will be removed. The patient tolerated the procedure well, he was extubated in the operating and transferred in a stable condition to the recovery area. Total Power 282 kW Lasing time 40:47 Pathology: Prostate tissue Drains: Singh catheter
== END 2023-12-10 14:59 | disposition home or self-care (01) ==
PROVIDERS: PCP Internal Medicine; Visit Provider Urology
PROC: (CPT 52648; principal; 2023-12-10 10:40)
DX: N40.1 Benign prostatic hyperplasia with lower urinary tract symptoms (principal); N32.0 Bladder-neck obstruction; R33.8 Other retention of urine; R39.14 Feeling of incomplete bladder emptying; N39.0 Urinary tract infection, site not specified; Z98.52 Vasectomy status; N20.0 Calculus of kidney; I10 Essential (primary) hypertension; Z86.711 Personal history of pulmonary embolism; Z79.01 Long term (current) use of anticoagulants; Z79.899 Other long term (current) drug therapy; Z88.2 Allergy status to sulfonamides; Z88.8 Allergy status to other drugs, medicaments and biological substances; Z87.891 Personal history of nicotine dependence
CPT/HCPCS: 52649; 88305; J1956; J2250; J2405; J2704; J3010

== ENCOUNTER → 2023-12-10 08:50 | Outpatient (BNV) | payer MEDICARE, SELFPAY | PROVIDERS: PCP Internal Medicine; Visit Provider Urology | DX: N32.0 Bladder-neck obstruction (principal) | CPT/HCPCS: 52649 ==

== ENCOUNTER → 2023-12-13 10:39 | Outpatient (BNVA) | payer MEDICARE, SELFPAY | PROVIDERS: PCP Internal Medicine; Visit Provider Urology ==

== ENCOUNTER 2023-12-24 11:24 | Outpatient (REF) | payer MEDICARE, SELFPAY ==
[2023-12-24 14:51] LABS: Osmolality, Serum 289 mosm/kg (281-305)
[2023-12-24 15:08] LABS: Osmolality Urine 321 mosm/kg (373-1093)
[2023-12-24 15:09] LABS: Anion Gap 14 (12-20); Blood Urea Nitrogen 13 mg/dL (9-16); Calcium 9.5 mg/dL (8.4-10.2); Carbon Dioxide 26 mmol/L (22-29); Chloride 104 mmol/L (96-108); Estimated Glomerular Filt Rate > 60; Glucose Random 82 mg/dL (60-115); Potassium 4.1 mmol/L (3.3-5.1); Sodium 140 mmol/L (135-145)
== END 2023-12-24 11:25 | disposition home or self-care (01) ==
LOC: HO.WFDLDS 11:24
PROVIDERS: Referring Provider Urology; Visit Provider Internal Medicine Hypertension Specialist
DX: I12.9 Hypertensive chronic kidney disease with stage 1 through stage 4 chronic kidney disease, or unspecified chronic kidney disease (principal); N20.0 Calculus of kidney; N18.9 Chronic kidney disease, unspecified
CPT/HCPCS: 36415; 80048; 83930; 83935; 84300

== ENCOUNTER 2023-12-27 09:36 | Outpatient (AMB) | payer MEDICARE, SELFPAY ==
[2023-12-27 09:35] VITALS: BP 116/72; PULSE 91; O2SAT 97
--- NOTE | 2023-12-27 09:35 | HO.NEPHOV ---
Vital Signs 12/27/23 09:35 Weight 157 lb BP 116/72 Blood Pressure Location Lt brachial Position Sitting Pulse 91 Pulse Source Pulse Oximeter Pulse Oximetry (%) 97 Oxygen Delivery Method Room Air Intake Visit Reasons: Hypertension/ 1 MO FU/ Confirmed Dive Superintendent Required: No Accompanied by: Self / Same As Patient Allergies indomethacin [From INDOCIN] Allergy (Intermediate, Verified 12/27/23 09:37) Confusion Sulfa (Sulfonamide Antibiotics) Allergy (Unknown, Verified 12/27/23 09:37) RASH tamsulosin [Flomax] Adverse Reaction (Unknown, Verified 12/27/23 09:37) swelling HPI Comments Details: Adan is a pleasant 68-year-old man with a history of BPH. In October 2023 he was admitted with MING due to obstructive uropathy. Creatinine was above 5 mg/dL. Singh was inserted and renal function promptly returned to baseline of around 1.2 mg. Since this time his blood pressure has been elevated and he was started on amlodipine. The dose was decreased from 10 mg down to 5 mg recently. He has been monitoring his blood pressure at home which is in the acceptable range. He is also closely monitoring his urine output. Urine output is anywhere between 1114-0150 mL per 24 hours. He admits to drinking plenty of fluids in an attempt to minimize stone formation. He did have 1 episode of mild hyponatremia with a serum sodium of 134 millimoles. The urine specific gravity has been consistently less than 1.005 last few times. He has a history of pulmonary embolism few years ago. He is on aspirin. It appears that he is undergone workup and no definite to coagulopathy has been diagnosed. At present he has no headache nausea or vomiting no abdominal pain diarrhea constipation no edema no shortness of breath no weight loss. 12/27/2023. Adan is doing well. He underwent prostate surgery which was successful. No specific urinary complaints today. Blood pressure has been well controlled. Amlodipine has been decreased from 5 mg down to 2.5 mg. [facility] Medical History Urinary retention with incomplete bladder emptying Hx of peripheral vascular disease Viral pericarditis Diverticulosis Scoliosis BPH (benign prostatic hyperplasia) Other obstructive and reflux uropathy Renal stones History of pulmonary embolism Increased prostate specific antigen (PSA) velocity Surgical History H/O colonoscopy Hx of vasectomy H/O removal of cyst [place] teeth extracted History of tonsillectomy and adenoidectomy Family History Father No problems noted. Mother No problems noted. Brother No problems noted. Daughter No problems noted. Daughter No problems noted. Social History Household Members: Spouse Housing: House Do you presently have visiting nurse or other home services: No Alcohol intake: current Alcohol intake frequency: holidays/special occasions only Patient Tobacco Use Status: Former Tobacco user Quit Date: 39 y/o Tobacco use type: Cigarette Second Hand Smoke Exposure: No service: No Physical Exam Vital Signs: Last Vital Signs Pulse 91 12/27/23 09:35 BP 116/72 12/27/23 09:35 Pulse Ox 97 12/27/23 09:35 Oxygen Delivery Method Room Air 12/27/23 09:35 Const General: comfortable Nutritional Appearance: well nourished Orientation/consciousness: patient oriented x3 HEENT Head: No normal to inspection Mouth: moist mucous membranes Neck Neck: Yes supple and Yes no JVD Resp Auscultation: clear to auscultation bilaterally, no rales and rub present Cardio Jugular venous distension: no JVD Palpation: no palpable S3 and no palpable S4 Heart sounds: no rubs GI Palpation (GI): Soft to palpation and nontender Percussion: No Fluid wave present General: Yes no CVA tenderness Back/Spine/Pelvis Back: no CVA tenderness Skin General skin exam: no rashes or lesions noted Neuro General: patient oriented x3 Extrem General: Yes no pedal edema and No clubbing Results Reviewed Nephrology Results: Hgb 14.4 g/dl (14.0-18.0) 11/19/23 WBC 6.8 X10*3/uL (4.8-10.8) 11/19/23 Plt Count 246 X10*3/uL (160-400) 11/19/23 Sodium 140 mmol/L (135-145) 12/24/23 Potassium 4.1 mmol/L (3.3-5.1) 12/24/23 Chloride 104 mmol/L (96-108) 12/24/23 Carbon Dioxide 26 mmol/L (22-29) 12/24/23 BUN 13 mg/dL (9-16) 12/24/23 Creatinine 0.99 mg/dL (0.5-1.4) 12/24/23 Calcium 9.5 mg/dL (8.4-10.2) 12/24/23 Phosphorus 2.6 mg/dL (2.7-4.5) L 11/19/23 Urine Protein Negative mg/dL (Neg-Trace) 11/19/23 Renal US 11/23/23 Assessment & Plan Assessment & Plan (1) Renal stones: Code(s): N20.0 - Calculus of kidney Category: Medical (2) Hypertension: Code(s): I10 - Essential (primary) hypertension Category: Medical Qualifiers: Hypertension type: unspecified Qualified Code(s): I10 - Essential (primary) hypertension (3) Acute kidney injury: Code(s): N17.9 - Acute kidney failure, unspecified Category: Medical Plan Adan had MING due to obstructive uropathy. Renal function is back to baseline once the obstruction has been relieved. Urine sediments are bland without any significant proteinuria or hematuria. No reason to believe he has any active glomerular or interstitial disease at this time. His urine output was close to 4 L. He has cut back on the fluid intake and the goal would be to maintain a urine output between 2-3 L per 24 hours. Excessive water intake puts him at risk of developing hyponatremia. Hypertension Encouraged him to stay on low-sodium diet Since blood pressure is excellent I would recommend to discontinue amlodipine. BPH s/p surgery and follow-up with Urology. Coding Level of Care Code Est Pt Level 4 (52148) Diagnoses Renal stones N20.0 Hypertension, unspecified type I10 Hypertension type: unspecified Acute kidney injury N17.9
== END 2023-12-27 16:09 | disposition home or self-care (01) ==
PROVIDERS: PCP Internal Medicine; Visit Provider Internal Medicine Hypertension Specialist
DX: N20.0 Calculus of kidney (principal); I10 Essential (primary) hypertension; N17.9 Acute kidney failure, unspecified
CPT/HCPCS: 99214

== ENCOUNTER → 2023-12-27 09:36 | Outpatient (BNVA) | payer MEDICARE, SELFPAY | PROVIDERS: PCP Internal Medicine; Visit Provider Internal Medicine Hypertension Specialist | DX: N17.9 Acute kidney failure, unspecified (principal); I10 Essential (primary) hypertension; N20.0 Calculus of kidney | CPT/HCPCS: 99212 ==

== ENCOUNTER 2024-01-15 15:44 | Outpatient (AMB) | payer MEDICARE, SELFPAY ==
--- NOTE | 2024-01-15 15:49 | A.OFFVIS_ITS ---
Intake Visit Reasons: Greenlight- follow up Intake Note: Patient is Present for PVR/ Post Green light Urology Med: Finasteride Antibiotic Allergy: Sulfa Blood Thinner: none Todays PVR:0 Allergies indomethacin [From INDOCIN] Allergy (Intermediate, Verified 01/15/24 15:54) Confusion Sulfa (Sulfonamide Antibiotics) Allergy (Unknown, Verified 01/15/24 15:54) RASH tamsulosin [Flomax] Adverse Reaction (Unknown, Verified 01/15/24 15:54) swelling HPI Comments Details: Adan is a very pleasant male. He is a patient of Dr. Bennett. He is seen for following urologic conditions. - lower urinary tract symptoms - nephrolithiasis - urinary retention Four week follow-up GreenLight laser Significant improvement in voiding parameters PVR 0 In this is the best possible response we could have anticipated He did have comments regarding the touch points in communication with [facility] throughout this process 11/03 Hospital admission - 1600 cc in the bladder Found to bilateral hydronephrosis and elevated creatinine Singh catheter placed - Hydroureteronephrosis started to resolve and creatinine found to fall from 5-1.8 prior to discharge Cr 12/04 1.2 Plan for laser prostatectomy Discussed possible suprapubic tube Recent MRI on spine shows scoliosis with compression in the L3 through L5 range. Is back undergoing chiropractic manipulation with some improvement in bladder emptying. Lower urinary tract symptoms Longstanding management Previous prostate procedures Had Botox to prostate 2014 - for urge/frequency, prior rapaflo usage Has a consistently high bladder residual PVR 03/02 700, 09/03 750 PSA 01/30 2.9, 12/31 3.2, 04/03 3.0 Nephrolithiasis previously renal cyst on ultrasound Imaging - 08/02 renal ultrasound left cyst 1.5 cm continue surveillance [facility] Medical History Urinary retention with incomplete bladder emptying Hx of peripheral vascular disease Viral pericarditis Diverticulosis Scoliosis BPH (benign prostatic hyperplasia) Other obstructive and reflux uropathy Renal stones History of pulmonary embolism Increased prostate specific antigen (PSA) velocity Surgical History H/O colonoscopy Hx of vasectomy H/O removal of cyst [place] teeth extracted History of tonsillectomy and adenoidectomy Family History Father No problems noted. Mother No problems noted. Brother No problems noted. Daughter No problems noted. Daughter No problems noted. Social History Household Members: Spouse Housing: House Do you presently have visiting nurse or other home services: No Alcohol intake: current Alcohol intake frequency: holidays/special occasions only Patient Tobacco Use Status: Former Tobacco user Tobacco use type: Cigarette Second Hand Smoke Exposure: No service: No Review of Systems Const Denies chills and Denies fever(s) Card Reports no additional complaints and Denies syncope Resp Denies cough GI Denies abdominal pain and Denies heartburn Reports as per HPI and Denies change in libido Neuro Denies syncope Psych Denies change in libido Endo Denies change in libido Physical Exam Const General: cooperative, healthy appearing, comfortable and no acute distress Orientation/consciousness: patient oriented x3 HEENT Face and sinus: Yes normal facial exam Mouth: moist mucous membranes Neck Neck: Yes normal visual inspection, Yes full ROM and Yes trachea midline Chest Chest palpation & inspection: normal inspection of the chest Resp Effort & Inspection: normal respiratory effort, able to speak in complete sentences and no respiratory distress GI Inspection: Yes normal to inspection Back/Spine/Pelvis Cervical Spine: normal cervical lordosis Thoracic/Lumbar Spine: thoracic and lumbar spine normal to inspection Skin General skin exam: no rashes or lesions noted Neuro General: patient oriented x3, gait normal, tone normal and moves all extremities Extrem General: Yes normal to inspection and Yes capillary refill normal Office Procedures Post Void Residual Post Residual Void Post Void Residual (PVR): 0 [id number] Void Residual by ultrasound Assessment & Plan Assessment & Plan (1) Urinary retention with incomplete bladder emptying: Code(s): R33.9 - Retention of urine, unspecified Category: Medical Plan Six-month follow-up PSA and PVR Orders: Orders AMB Post Void Residual by ultrasound Today R33.9 - Retention of urine, u nspecified Prostate Specific Antigen 6 Months R33.9 - Retention of urine, unspecified Patient Instructions: Imaging studies, laboratory and physical exam results were discussed and reviewed in detail. No major barriers to patient understanding were identified. An opportunity to ask questions regarding the treatment plan was provided. All questions were answered. The patient expressed understanding and agreement with the above treatment plan. The patient is aware they should contact our office by phone for worsening of their current condition or the appearance of new urologic symptoms. Compliance is encouraged with any medications and followup testing that is ordered. It is a privilege to participate in the urologic care of your patient. If you have any questions or concerns regarding treatment for the above conditions, or other urologic issues, please do not hesitate to contact me. The office teleph one contact is [phone]. This note is constructed using voice recognition software. While every effort has been made to ensure accuracy hardwood finisher errors may have been included. Yours sincerely, Dr Fernando Oconnor MD, ED [facility] - Urology Providers of Expert, Compassionate Care for the Genitourinary System Coding Level of Care Code Est Pt Level 3 (94446) Diagnoses Urinary retention with incomplete bladder emptying R33.9 CPT Codes Post Residual Void - PVR CPT Code: 60972-Zsjn Void Residual by ultrasound ([id number])
== END 2024-01-15 16:46 | disposition home or self-care (01) ==
PROVIDERS: PCP Internal Medicine; Visit Provider Urology
DX: R33.9 Retention of urine, unspecified (principal)
CPT/HCPCS: 99024

== ENCOUNTER → 2024-01-15 15:44 | Outpatient (BNVA) | payer MEDICARE, SELFPAY | PROVIDERS: PCP Internal Medicine; Visit Provider Urology | DX: R33.9 Retention of urine, unspecified (principal); N28.1 Cyst of kidney, acquired; Z87.442 Personal history of urinary calculi | CPT/HCPCS: 51798; 99212 ==

== ENCOUNTER 2024-07-05 13:58 | Outpatient (REF) | payer MEDICARE, SELFPAY ==
[2024-07-05 16:54] LABS: Prostate Specific Antigen 3.24 ng/mL (<0.05-4.0)
== END 2024-07-05 13:59 | disposition home or self-care (01) ==
LOC: HO.HMGCLDS 13:58
PROVIDERS: PCP Internal Medicine; Visit Provider Urology
DX: R33.9 Retention of urine, unspecified (principal); Z12.5 Encounter for screening for malignant neoplasm of prostate
CPT/HCPCS: 36415; 84153

== ENCOUNTER 2024-07-15 08:34 | Outpatient (AMB) | payer MEDICARE, SELFPAY ==
--- NOTE | 2024-07-15 08:36 | MHC.OFFVIS ---
Intake Visit Reasons: 6M PSA/PVR(set) Intake Note: Patient is present for 6m PSA/PVR Urology Medication:NONE Antibiotic Allergy:INDOMETHACIN,SULFA,TAMSULOSIN Blood Thinner:NONE TODAY'S PVR: 136ML'S Senior Hardware Engineer Required: No Allergies indomethacin [From INDOCIN] Allergy (Intermediate, Verified 07/15/24 08:38) Confusion Sulfa (Sulfonamide Antibiotics) Allergy (Unknown, Verified 07/15/24 08:38) RASH tamsulosin [Flomax] Adverse Reaction (Unknown, Verified 07/15/24 08:38) swelling HPI Comments Details: Adan is a very pleasant male. He is a patient of Dr. Bennett. He is seen for following urologic conditions. - lower urinary tract symptoms - nephrolithiasis - urinary retention Six-month follow-up GreenLight laser Significant improvement in voiding parameters PVR 130 cc Still maintaining adequate performance UTI positive today - culture, Levaquin Voiding change in libido Check baseline labs 11/03 Hospital admission - 1600 cc in the bladder Found to bilateral hydronephrosis and elevated creatinine Singh catheter placed - Hydroureteronephrosis started to resolve and creatinine found to fall from 5-1.8 prior to discharge Cr 12/04 1.2 Plan for laser prostatectomy Discussed possible suprapubic tube Recent MRI on spine shows scoliosis with compression in the L3 through L5 range. Is back undergoing chiropractic manipulation with some improvement in bladder emptying. Lower urinary tract symptoms Longstanding management Previous prostate procedures Had Botox to prostate 2014 - for urge/frequency, prior rapaflo usage Has a consistently high bladder residual PVR 03/02 700, 09/03 750 PSA 01/30 2.9, 12/31 3.2, 04/03 3.0 Nephrolithiasis previously renal cyst on ultrasound Imaging - 08/02 renal ultrasound left cyst 1.5 cm continue surveillance [facility] Medical History Urinary retention with incomplete bladder emptying Hx of peripheral vascular disease Viral pericarditis Diverticulosis Scoliosis BPH (benign prostatic hyperplasia) Other obstructive and reflux uropathy Renal stones History of pulmonary embolism Increased prostate specific antigen (PSA) velocity Surgical History H/O colonoscopy Hx of vasectomy H/O removal of cyst [place] teeth extracted History of tonsillectomy and adenoidectomy Family History Father No problems noted. Mother No problems noted. Brother No problems noted. Daughter No problems noted. Daughter No problems noted. Social History Household Members: Spouse Housing: House Do you presently have visiting nurse or other home services: No Alcohol intake: current Alcohol intake frequency: holidays/special occasions only Patient Tobacco Use Status: Former Tobacco user Tobacco use type: Cigarette Second Hand Smoke Exposure: No service: No Review of Systems Const Denies chills and Denies fever(s) Card Reports no additional complaints and Denies syncope Resp Denies cough GI Denies abdominal pain and Denies heartburn Reports as per HPI and Denies change in libido Neuro Denies syncope Psych Denies change in libido Endo Denies change in libido Physical Exam Const General: cooperative, healthy appearing, comfortable and no acute distress Orientation/consciousness: patient oriented x3 HEENT Face and sinus: Yes normal facial exam Mouth: moist mucous membranes Neck Neck: Yes normal visual inspection, Yes full ROM and Yes trachea midline Chest Chest palpation & inspection: normal inspection of the chest Resp Effort & Inspection: normal respiratory effort, able to speak in complete sentences and no respiratory distress GI Inspection: Yes normal to inspection Back/Spine/Pelvis Cervical Spine: normal cervical lordosis Thoracic/Lumbar Spine: thoracic and lumbar spine normal to inspection Skin General skin exam: no rashes or lesions noted Neuro General: patient oriented x3, gait normal, tone normal and moves all extremities Extrem General: Yes normal to inspection and Yes capillary refill normal Office Procedures Post Void Residual Post Residual Void Post Void Residual (PVR): 136 [id number] Void Residual by ultrasound Results AMB Urinalysis, Automated UA Leukoctes 500 Rocio/uL Last Edit by YUMIKO Raza on 07/15/24 08:51 UA Nitrite Positive Last Edit by YUMIKO Raza on 07/15/24 08:51 UA Urobilinogen 0.2 mg/dL Last Edit by YUMIKO Raza on 07/15/24 08:51 UA Protein 15 mg/dL Last Edit by YUMIKO Raza on 07/15/24 08:51 UA pH 6.0 Last Edit by YUMIKO Raza on 07/15/24 08:51 UA Blood 25 Adilson/uL Last Edit by YUMIKO Raza on 07/15/24 08:51 UA Specific [place] 1.025 Last Edit by YUMIKO Raza on 07/15/24 08:51 UA Ketone Negative Last Edit by YUMIKO Raza on 07/15/24 08:51 UA Bilirubin 0 mg/dL Last Edit by YUMIKO Raza on 07/15/24 08:51 UA Glucose 0 mg/dL Last Edit by YUMIKO Raza on 07/15/24 08:51 Assessment & Plan Assessment & Plan (1) Low libido: Code(s): R68.82 - Decreased libido Category: Medical Plan Levaquin for UTI Check baseline labs Six-month follow-up PVR Orders: Orders AMB Urinalysis Automated Today Z13.9 - Encounter for screening, unspecified Urine Culture Today N39.0 - Urinary tract infection, site not specified Testosterone, Free/Total Today R68.82 - Decreased libido Medications: New levofloxacin 500 mg PO Q24H 5 days 5 tabs 0RF N39.0 - Urinary tract infection, site not specified Patient Instructions: Imaging studies, laboratory and physical exam results were discussed and reviewed in detail. No major barriers to patient understanding were identified. An opportunity to ask questions regarding the treatment plan was provided. All questions were answered. The patient expressed understanding and agreement with the above treatment plan. The patient is aware they should contact our office by phone for worsening of their current condition or the appearance of new urologic symptoms. Compliance is encouraged with any medications and followup testing that is ordered. It is a privilege to participate in the urologic care of your patient. If you have any questions or concerns regarding treatment for the above conditions, or other urologic issues, please do not hesitate to contact me. The office telephone contact is [phone]. This note is constructed using voice recognition software. While every effort has been made to ensure accuracy leather goods assembler errors may have been included. Yours sincerely, Dr Fernando Oconnor MD, ED [facility] - Urology Providers of Expert, Compassionate Care for the Genitourinary System Coding Level of Care Code Est Pt Level 4 (52694) Diagnoses Low libido R68.82 CPT Codes Post Residual Void - PVR CPT Code: 39537-Wqsq Void Residual by ultrasound ([id number])
== END 2024-07-15 09:09 | disposition home or self-care (01) ==
PROVIDERS: PCP Internal Medicine; Visit Provider Urology
DX: Z13.9 Encounter for screening, unspecified (principal); R68.82 Decreased libido
CPT/HCPCS: 99214

== ENCOUNTER 2024-07-15 08:34 | Outpatient (REF) | payer MEDICARE, SELFPAY | END 2024-07-15 08:35 | disposition home or self-care (01) | LOC: HO.LAB 08:34 | PROVIDERS: PCP Internal Medicine; Visit Provider Urology | DX: R68.82 Decreased libido (principal); N39.0 Urinary tract infection, site not specified | CPT/HCPCS: 51798; 81003; 87086; 87186; 99212 ==

== ENCOUNTER 2024-07-25 09:38 | Outpatient (REF) | payer MEDICARE, SELFPAY ==
--- OUTSIDE RECORDS SUMMARY | 2024-07-25 09:42 | XMS_ITS ---
Author Organization Deacon Bennett DO, [facility] Address [address], [place] [id number] Care Team Providers Care Design Center Consultant Name Role Phone Deacon Bennett Primary Care Provider [phone] REASON FOR VISIT Message Encounters Encounter Location Date Provider Diagnosis Deacon Bennett DO, FACP [address] [place] [id number] 05/21/2024 Deacon Bennett PLAN OF TREATMENT Next Appt Details Provider Name:Deacon travis, 07/30/2024 10:30:00 AM, [address] [place], [place], [phone],
--- OUTSIDE RECORDS SUMMARY | 2024-07-25 09:42 | XMS_ITS ---
Author Organization Deacon Bennett DO [facility] Address [address] [place], [place] [id number] Care Team Providers Care Cumulative Effects Analyst Name Role Phone Deacon Bennett Primary Care Provider REASON FOR VISIT Adan Dennis - Covid infection MEDICATIONS Medication SIG (Take, Route, Frequency, Duration) Notes Start Date End Date Status Paxlovid (300/100) 20 x 150 MG & 10 x 100MG 3 tablets Orally Twice a day for 5 days 04/18/2024 Active Encounters Encounter Location Date Provider Diagnosis Deacon Bennett DO, FACP [address] [place] [id number] 04/18/2024 Deacon Bennett PLAN OF TREATMENT Medication Medication Name Sig Start Date Stop Date Notes Paxlovid (300/100) 20 x 150 MG & 10 x 100MG 3 tablets Orally Twice a day for 5 days 04/18/2024 Next Appt Details Provider Name:Deacon travis, 07/30/2024 10:30:00 AM, [address] [place], [place], [phone],
--- OUTSIDE RECORDS SUMMARY | 2024-07-25 09:42 | XMS_ITS ---
Author Organization Deacon Bennett DO, [facility] Address [address] [place], [place] [phone] Care Team Providers Care Tow Driver Name Role Phone Deacon Bennett Primary Care Provider REASON FOR VISIT Message Encounters Encounter Location Date Provider Diagnosis Deacon Bennett DO, FACP [address] [place] [id number] 02/05/2024 Deacon Bennett PLAN OF TREATMENT Next Appt Details Provider Name:Deacon travis, 07/30/2024 10:30:00 AM, [address] [place], [place], [phone],
--- OUTSIDE RECORDS SUMMARY | 2024-07-25 09:43 | XMS_ITS | Patient Health Record ---
Author Organization Deacon Bennett DO, FAC Address [address] [place] [phone] Care Team Providers Care Maintenance Team Member Name Role Phone Deacon Bennett Primary Care Provider ALLERGIES Allergen (clinical drug ingredient) Drug/Non Drug Allergy documented on EMR Reaction Allergy Type Onset Date Status indomethacin Indomethacin mental status changes Drug Allergy Active sulfa hives Drug Allergy Active RESULTS Component Value Reference Range Notes Complete Blood Count Auto Di ff Reviewed date:08/29/2023 04:46:36 PM Interpretation:Abnormal Performing Lab:[facility], [address] [place] [phone] Notes/Report: White Blood Count 7.6 4.8-10.8 X10*3/uL Red Blood Count 4.88 4.60-5.80 X10*6/uL Hemoglobin 14.9 14.0-18.0 g/dl Hematocrit 42.9 42.0-52.0 % Mean Corpuscular Volume 87.9 80.0-98.0 fL Mean Corpuscular Hemoglobin 30.5 27.0-33.0 pg Mean Corpuscular HGB Conc 34.7 31.0-36.0 g/dl Red Cell Distribution Width 12.9 11.0-16.0 % Platelet Count 219 160-400 X10*3/uL Mean Platelet Volume 9.7 9.4-12.4 fL Neutrophils Percent Auto 80.4 45-73 % Imm Gran Pct Auto 0.3 0.0-0.4 % Lymphocytes Percent Auto 11.7 20-40 % Monocytes Percent Auto 6.4 2-11 % Eosinophils Percent Auto 0.9 0-4 % Basophils Percent Auto 0.3 0-2 % NRBC Pct Auto 0.0 0.0-0.2 /100WBC Neutrophils Absolute Auto 6.1 2.0-8.3 x10*3/u L Imm Gran Abs Auto 0.02 0.00-0.03 X10*3/uL Lymphocytes Absolute Auto 0.9 1.2-4.9 X10*3/u L Monocytes Absolute Auto 0.5 0.1-1.2 X10*3/uL Eosinophils Absolute Auto 0.1 0.0-0.4 X10*3/u L Basophils Absolute Auto 0.0 0.0-0.2 X10*3/uL NRBC Abs Auto 0.000 0.0-0.012 X10*3/uL Basic Metabolic Panel Reviewed date:08/29/2023 04:46:36 PM Interpretation:Normal Performing Lab:[facility], [address] [place] [phone] Notes/Report: Sodium 143 135-145 mmol/L Potassium 4.1 3.3-5.1 mmol/L Chloride 104 96-108 mmol/L Carbon Dioxide 30 22-29 mmol/L Anion Gap 13 12-20 Blood Urea Nitrogen 12 9-16 mg/dL Creatinine 1.06 0.5-1.4 mg/dL Creatinine Clr Calc Pharmacy 56.9 eGFR (calculated from the MDRD study equation) and eCrCl (calculated from the Cockcroft-Gault equation) are based on different parameters and may not yield comparable results. If eCrCl result is absurd, please check patient's height/weight. Estimated Glomerular Filt Rate > 60 NOTE: For -Slovenian individuals, multiply the result by 1.210. Chronic Kidney Disease: Estimated GFR < 60 mL/min/1.73m2 Severe Kidney Disease: Estimated GFR < 15 mL/min/1.73m2 Glucose Random 104 60-115 mg/dL Calcium 10.1 8.4-10.2 mg/dL Magnesium Reviewed date:08/29/2023 04:46:36 PM Interpretation:Normal Performing Lab:[facility], [address] [place] [phone] Notes/Report: Magnesium 2.0 1.6-2.6 mg/dL UA ClnCatch+Micro w/rflx Cul t Reviewed date:08/29/2023 04:47:00 PM Interpretation:Abnormal Performing Lab:[facility], [address] [place] [phone] Notes/Report: Urine, Singh Port Color Urine Yellow Appearance Urine Clear PH 6.5 5.0-9.0 Glucose Urine UA Negative Negative mg/dL Urine Blood Small (1+) Negative Specific [place] - Urine <= 1.005 1.005-1.025 Urine Protein Negative Neg-Trace mg/dL Urine Ketones Negative Negative mg/dL Nitrite Urine Negative Negative Leukocyte Esterase Urine Negative Negative RBC Urine 0-2 0-2 /HPF WBC Urine 0-5 0-5 /HPF Squamous Epithelial Cell Urine 0-2 0-2 /HPF Bacteria Urine None Seen None Seen Hyaline Casts Urine 0-2 0-2 /LPF XR KUB Reviewed date:08/29/2023 04:45:21 PM Interpretation:Abnormal Performing Lab: Notes/Report: [address] [address] XRay Report Signed Patient: Adan Collins MR#: [id number] 62 : 1955 Acct:[id number] Age/Sex: 68 / M ADM Date: 08/27/23 Loc: HO.ED Attending Dr: Ordering Physician: Mele Burton Date of Service: 08/27/23 Procedure(s): XR KUB Accession Number(s): [id number] cc: Deacon Bennett DO; Mele Burton EXAMINATION: XR ABDOMEN KUB CLINICAL INDICATION: Pain COMPARISON: None available. TECHNIQUE: AP view of the abdomen. FINDINGS: There is scattered stool and gas seen throughout the colon without distention. No organomegaly. There is moderate rotolevoscoliosis thoracolumbar spine. No aggressive lytic or sclerotic process seen. XR/XR KUB IMPRESSION: 1. Mild constipation. No acute process seen. 2. Moderate rotolevoscoliosis thoracolumbar spine. . Dictated By: Jermaine Thompson MD Signed By: <Electronically signed by Jermaine Thompson MD in OV> 08/27/232036 DD/ 54 TD/TT: Point Of Sale Associate: CHRIS Complete Blood Count Auto Di ff Reviewed date:10/26/2023 08:41:32 PM Interpretation:Abnormal Performing Lab:[facility], [address] [place] [phone] Notes/Report: White Blood Count 9.7 4.8-10.8 X10*3/uL Red Blood Count 4.64 4.60-5.80 X10*6/uL Hemoglobin 14.2 14.0-18.0 g/dl Hematocrit 41.1 42.0-52.0 % Mean Corpuscular Volume 88.6 80.0-98.0 fL Mean Corpuscular Hemoglobin 30.6 27.0-33.0 pg Mean Corpuscular HGB Conc 34.5 31.0-36.0 g/dl Red Cell Distribution Width 12.4 11.0-16.0 % Platelet Count 237 160-400 X10*3/uL Mean Platelet Volume 9.8 9.4-12.4 fL Neutrophils Percent Auto 83.5 45-73 % Imm Gran Pct Auto 0.7 0.0-0.4 % Lymphocytes Percent Auto 6.6 20-40 % Monocytes Percent Auto 7.1 2-11 % Eosinophils Percent Auto 1.8 0-4 % Basophils Percent Auto 0.3 0-2 % NRBC Pct Auto 0.0 0.0-0.2 /100WBC Neutrophils Absolute Auto 8.1 2.0-8.3 x10*3/u L Imm Gran Abs Auto 0.07 0.00-0.03 X10*3/uL Lymphocytes Absolute Auto 0.6 1.2-4.9 X10*3/u L Monocytes Absolute Auto 0.7 0.1-1.2 X10*3/uL Eosinophils Absolute Auto 0.2 0.0-0.4 X10*3/u L Basophils Absolute Auto 0.0 0.0-0.2 X10*3/uL NRBC Abs Auto 0.000 0.0-0.012 X10*3/uL Comprehensive Met. Panel Reviewed date:10/26/2023 08:41:32 PM Interpretation:Abnormal Performing Lab:[facility], [address] [place] [phone] Notes/Report: Sodium 140 135-145 mmol/L Potassium 5.0 3.3-5.1 mmol/L Chloride 105 96-108 mmol/L Carbon Dioxide 24 22-29 mmol/L Anion Gap 16 12-20 Blood Urea Nitrogen 58 9-16 mg/dL Creatinine 5.34 0.5-1.4 mg/dL Critical value for test(s):LEEANNA Results called to and read back by: LEONEL Person calling:JAMES Date: [birth year]Brnt:1927 Creatinine Clr Calc Pharmacy 11.5 eGFR (calculated from the MDRD study equation) and eCrCl (calculated from the Cockcroft-Gault equation) are based on different parameters and may not yield comparable results. If eCrCl result is absurd, please check patient's height/weight. Estimated Glomerular Filt Rate 11 NOTE: For -Slovenian individuals, multiply the result by 1.210. Chronic Kidney Disease: Estimated GFR < 60 mL/min/1.73m2 Severe Kidney Disease: Estimated GFR < 15 mL/min/1.73m2 Glucose Random 93 60-115 mg/dL Calcium 9.7 8.4-10.2 mg/dL Bilirubin Total 0.8 0.0-1.0 mg/dL Aspartate Amino Transferase 13 5-37 U/L Alanine Aminotransferase 12 0-40 U/L Total Protein 7.6 6.5-8.0 g/dL Albumin Level 4.4 3.5-5.0 g/dL Alkaline Phosphatase 78 39-117 U/L Creatine Kinase Total Reviewed date:10/27/2023 12:15:47 PM Interpretation:Normal Performing Lab:[facility], [address] [place] [phone] Notes/Report: Creatine Kinase Total 107 38-174 U/L UA ClnCatch+Micro w/rflx Cul t Reviewed date:10/27/2023 12:15:47 PM Interpretation:Abnormal Performing Lab:[facility], [address] [place] [phone] Notes/Report: [id number] Urine, Singh Port Color Urine Yellow Appearance Urine Clear PH 5.5 5.0-9.0 Glucose Urine UA Negative Negative mg/dL Urine Blood Large (3+) Negative Specific [place] - Urine <= 1.005 1.005-1.025 Urine Protein Negative Neg-Trace mg/dL Urine Ketones Negative Negative mg/dL Nitrite Urine Negative Negative Leukocyte Esterase Urine Negative Negative RBC Urine 0-2 0-2 /HPF WBC Urine 0-5 0-5 /HPF Squamous Epithelial Cell Urine 0-2 0-2 /HPF Bacteria Urine None Seen None Seen Hyaline Casts Urine 0-2 0-2 /LPF CT abdomen pelvis wo con Reviewed date:10/27/2023 12:17:29 PM Interpretation:Abnormal Performing Lab: Notes/Report: [address] [address] [address] Scan Report Signed Patient: Adan Collins MR#: [id number] 62 : 1955 Acct:[id number] Age/Sex: 68 / M ADM Date: 10/26/23 Loc: HO.ED Attending Dr: Ordering Physician: Gilles Lechuga MD Date of Service: 10/26/23 Procedure(s): CT abdomen pelvis wo IV con Accession Number(s): [id number] cc: Deacon Bennett DO; Gilles Lechuga MD EXAMINATION: CT ABDOMEN AND PELVIS WITHOUT CONTRAST CLINICAL INFORMATION: Obstructive uropathy COMPARISON: None available. TECHNIQUE: Multidetector volumetric imaging was performed from the superior aspect of the liver through the pubic symphysis. Sagittal and coronal reformatted images were obtained on the technologist's workstation. This CT examination was performed using dose optimization techniques as appropriate, variously including the following: *Automated exposure control *Adjustment of mA and/or kV according to patient size (this includes techniques or standardized protocols for targeted exams where dose is matched to indication/reason for exam; i.e. extremities or head) *Use of iterative reconstruction technique DLP: 415 mGy-cm FINDINGS: LUNG BASES: The visualized lung bases are unremarkable. LIVER, GALLBLADDER, AND BILIARY TREE: The liver is normal in size, shape, and attenuation. No focal hepatic lesion or biliary ductal dilatation is present. The gallbladder is unremarkable with no evidence of radiopaque gallstones, gallbladder wall thickening, or obvious pericholecystic inflammatory changes. PANCREAS: Unremarkable. SPLEEN: Unremarkable. ADRENAL GLANDS: Unremarkable. KIDNEYS AND URETERS: Bilateral hydronephrosis and ureteral dilatation down to the bladder. 2 cm cyst exophytic to the lateral lower pole right kidney. No imaging follow-up recommended. BLADDER: There is a Singh catheter in the bladder. Bladder is empty. There is diffuse bladder wall thickening. The prostate gland is enlarged. Since the base of the bladder. GASTROINTESTINAL TRACT: The small and large bowel are unremarkable. The appendix is unremarkable. ABDOMINAL WALL: No significant hernia is appreciated. LYMPH NODES: Normal. VASCULAR: Unremarkable. PELVIC VISCERA: The prostate gland is enlarged and protrudes into the base of lateral. The prostate gland measures 5.4 x 5.6 cm. OSSEOUS STRUCTURES: Severe thoracolumbar scoliosis. CT/CT abdomen pelvis wo IV con IMPRESSION: Bilateral hydronephrosis and ureteral dilatation down to the bladder. Singh catheter in the bladder. The bladder is empty. The prostate gland is enlarged and protrudes into the base of the bladder. There is diffuse bladder wall thickening. Findings suggestive of obstructive uropathy. Fleischner guidelines were followed. Dictated By: Amy Peacock MD Signed By: <Electronically signed by Amy Peacock MD in OV> 10/26/232133 DD/ 00 TD/TT: Point Of Sale Associate: LAURITA Complete Blood Count Auto Di ff Reviewed date:10/27/2023 12:15:47 PM Interpretation:Abnormal Performing Lab:[facility], [address] [place] [phone] Notes/Report: White Blood Count 8.0 4.8-10.8 X10*3/uL Red Blood Count 4.61 4.60-5.80 X10*6/uL Hemoglobin 14.0 14.0-18.0 g/dl Hematocrit 40.7 42.0-52.0 % Mean Corpuscular Volume 88.3 80.0-98.0 fL Mean Corpuscular Hemoglobin 30.4 27.0-33.0 pg Mean Corpuscular HGB Conc 34.4 31.0-36.0 g/dl Red Cell Distribution Width 12.3 11.0-16.0 % Platelet Count 245 160-400 X10*3/uL Mean Platelet Volume 9.9 9.4-12.4 fL Neutrophils Percent Auto 74.8 45-73 % Imm Gran Pct Auto 0.5 0.0-0.4 % Lymphocytes Percent Auto 10.4 20-40 % Monocytes Percent Auto 9.4 2-11 % Eosinophils Percent Auto 4.8 0-4 % Basophils Percent Auto 0.1 0-2 % NRBC Pct Auto 0.0 0.0-0.2 /100WBC Neutrophils Absolute Auto 6.0 2.0-8.3 x10*3/u L Imm Gran Abs Auto 0.04 0.00-0.03 X10*3/uL Lymphocytes Absolute Auto 0.8 1.2-4.9 X10*3/u L Monocytes Absolute Auto 0.8 0.1-1.2 X10*3/uL Eosinophils Absolute Auto 0.4 0.0-0.4 X10*3/u L Basophils Absolute Auto 0.0 0.0-0.2 X10*3/uL NRBC Abs Auto 0.000 0.0-0.012 X10*3/uL Basic Metabolic Panel Reviewed date:10/27/2023 12:15:47 PM Interpretation:Abnormal Performing Lab:[address] [phone] Notes/Report: Sodium 145 135-145 mmol/L Potassium 5.4 3.3-5.1 mmol/L Slight Hemoly sis Chloride 111 96-108 mmol/L Carbon Dioxide 26 22-29 mmol/L Anion Gap 13 12-20 Blood Urea Nitrogen 42 9-16 mg/dL Creatinine 3.37 0.5-1.4 mg/dL Creatinine Clr Calc Pharmacy 17.9 eGFR (calculated from the MDRD study equation) and eCrCl (calculated from the Cockcroft-Gault equation) are based on different parameters and may not yield comparable results. If eCrCl result is absurd, please check patient's height/weight. Estimated Glomerular Filt Rate 18 NOTE: For -Slovenian individuals, multiply the result by 1.210. Chronic Kidney Disease: Estimated GFR < 60 mL/min/1.73m2 Severe Kidney Disease: Estimated GFR < 15 mL/min/1.73m2 Glucose Random 100 60-115 mg/dL Calcium 9.4 8.4-10.2 mg/dL Hold Lav - Possible Hematolo gy Reviewed date:10/28/2023 10:16:59 AM Interpretation:Hold Performing Lab:[facility], [address] [place] [phone] Notes/Report: Hold Lav - Possible Hematology SEE NOTE Specimen will be held untested for 8 hours. Call Hematology if testing is desired. Basic Metabolic Panel Reviewed date:10/28/2023 10:17:39 AM Interpretation:Abnormal Performing Lab:[facility], [address] [place] [phone] Notes/Report: Sodium 142 135-145 mmol/L Potassium 4.1 3.3-5.1 mmol/L Chloride 104 96-108 mmol/L Carbon Dioxide 30 22-29 mmol/L Anion Gap 12 12-20 Blood Urea Nitrogen 22 9-16 mg/dL Creatinine 1.80 0.5-1.4 mg/dL Creatinine Clr Calc Pharmacy 33.6 eGFR (calculated from the MDRD study equation) and eCrCl (calculated from the Cockcroft-Gault equation) are based on different parameters and may not yield comparable results. If eCrCl result is absurd, please check patient's height/weight. Estimated Glomerular Filt Rate 38 NOTE: For -Slovenian individuals, multiply the result by 1.210. Chronic Kidney Disease: Estimated GFR < 60 mL/min/1.73m2 Severe Kidney Disease: Estimated GFR < 15 mL/min/1.73m2 Glucose Random 90 60-115 mg/dL Calcium 9.2 8.4-10.2 mg/dL US renal BI Reviewed date:10/28/2023 06:38:35 PM Interpretation:Abnormal Performing Lab: Notes/Report: [address] [address] Ultrasound Report Signed Patient: Adan Collins MR#: [id number] 62 : 1955 Acct:[id number] Age/Sex: 68 / M ADM Date: 10/26/23 Loc: .S3 343-[address]: Lilliana Eng NP Ordering Physician: Lilliana Eng NP Date of Service: 10/28/23 Procedure(s): US renal BI Accession Number(s): [id number] cc: Deacon Bennett DO; Lilliana Eng NP EXAMINATION: US RETROPERITONEAL LIMITED (RENAL ONLY) CLINICAL INFORMATION: Hydronephrosis. COMPARISON: Portions of CT abdomen and pelvis 10/26/2023. TECHNIQUE: Real-time imaging of the kidneys. FINDINGS: RIGHT KIDNEY: 10.0 x 6.3 x 6.7 cm (SAG x AP x TRV). There is a 2.1 cm cyst exophytic from the lateral aspect of the lower right kidney. Renal cortical thickness is normal. No renal calculi. Moderate to marked dilation of the intrarenal collecting system LEFT KIDNEY: 11.6 x 5.9 x 5.3 cm (SAG x AP x TRV). The kidney is normal in size, contour, and echogenicity. Renal cortical thickness is normal. No renal calculi or focal parenchymal lesions. Moderate dilation of the intrarenal collecting system. ADDITIONAL FINDINGS: The bladder is markedly abnormal. There is a balloon catheter present. There is focal protrusion from the prostate into the bladder base in the region of the urethra. The bladder wall is markedly trabeculated. There are bladder diverticula. US/US renal BI IMPRESSION: Persistent at least moderate dilation of the intrarenal collecting system bilaterally. Balloon catheter within the urinary bladder. Markedly trabeculated bladder wall with bladder diverticula. Markedly enlarged prostate including a so-called median lobe. Dictated By: Jake Bill MD Signed By: <Electronically signed by Jake Bill MD in OV> 10/28/23 1615 DD/ 0935 TD/TT: Point Of Sale Associate: TAYLOR Complete Blood Count Auto Di ff Reviewed date:11/01/2023 11:22:47 PM Interpretation:Abnormal Performing Lab:[facility], [address] [place] [phone] Notes/Report: White Blood Count 24.0 4.8-10.8 X10*3/uL Red Blood Count 5.02 4.60-5.80 X10*6/uL Hemoglobin 15.1 14.0-18.0 g/dl Hematocrit 42.6 42.0-52.0 % Mean Corpuscular Volume 84.9 80.0-98.0 fL Mean Corpuscular Hemoglobin 30.1 27.0-33.0 pg Mean Corpuscular HGB Conc 35.4 31.0-36.0 g/dl Red Cell Distribution Width 12.0 11.0-16.0 % Platelet Count 306 160-400 X10*3/uL Mean Platelet Volume 9.0 9.4-12.4 fL Neutrophils Percent Auto 90.2 45-73 % Imm Gran Pct Auto 0.5 0.0-0.4 % Lymphocytes Percent Auto 2.8 20-40 % Monocytes Percent Auto 5.9 2-11 % Eosinophils Percent Auto 0.4 0-4 % Basophils Percent Auto 0.2 0-2 % NRBC Pct Auto 0.0 0.0-0.2 /100WBC Neutrophils Absolute Auto 21.6 2.0-8.3 x10*3/u L Imm Gran Abs Auto 0.13 0.00-0.03 X10*3/uL Lymphocytes Absolute Auto 0.7 1.2-4.9 X10*3/u L Monocytes Absolute Auto 1.4 0.1-1.2 X10*3/uL Eosinophils Absolute Auto 0.1 0.0-0.4 X10*3/u L Basophils Absolute Auto 0.0 0.0-0.2 X10*3/uL NRBC Abs Auto 0.000 0.0-0.012 X10*3/uL White Blood Count 24.0 4.8-10.8 X10*3/uL Red Blood Count 5.02 4.60-5.80 X10*6/uL Hemoglobin 15.1 14.0-18.0 g/dl Hematocrit 42.6 42.0-52.0 % Mean Corpuscular Volume 84.9 80.0-98.0 fL Mean Corpuscular Hemoglobin 30.1 27.0-33.0 pg Mean Corpuscular HGB Conc 35.4 31.0-36.0 g/dl Red Cell Distribution Width 12.0 11.0-16.0 % Platelet Count 306 160-400 X10*3/uL Mean Platelet Volume 9.0 9.4-12.4 fL Neutrophils Percent Auto 90.2 45-73 % Imm Gran Pct Auto 0.5 0.0-0.4 % Lymphocytes Percent Auto 2.8 20-40 % Monocytes Percent Auto 5.9 2-11 % Eosinophils Percent Auto 0.4 0-4 % Basophils Percent Auto 0.2 0-2 % NRBC Pct Auto 0.0 0.0-0.2 /100WBC Neutrophils Absolute Auto 21.6 2.0-8.3 x10*3/u L Imm Gran Abs Auto 0.13 0.00-0.03 X10*3/uL Lymphocytes Absolute Auto 0.7 1.2-4.9 X10*3/u L Monocytes Absolute Auto 1.4 0.1-1.2 X10*3/uL Eosinophils Absolute Auto 0.1 0.0-0.4 X10*3/u L Basophils Absolute Auto 0.0 0.0-0.2 X10*3/uL NRBC Abs Auto 0.000 0.0-0.012 X10*3/uL Prothrombin Time INR Reviewed date:11/01/2023 11:22:47 PM Interpretation:Normal Performing Lab:[facility], [address] [place] [phone] Notes/Report: Prothrombin Time 13.1 11.1-13.3 SEC INTERNATIONAL NORM RATIO 1.1 0.9-1.1 INTERNATIONAL NORMALIZED RATIO (INR) REFERENCE RANGES Reference Range For patients not on anticoagulant therapy: 0.9 - 1.1 INR ranges for oral anticoagulant therapy: For prevention and treatment of venous thrombosis and pulmonary embolism: 2.0 - 3.0 For acute myocardial infarction with aspirin therapy: 2.0 - 3.0 For acute myocardial infarction without aspirin therapy: 3.0 - 4.0 For patients with mechanical prosthetic heart valves: 2.5 - 3.5 Comprehensive Met. Panel Reviewed date:11/01/2023 11:22:47 PM Interpretation:Abnormal Performing Lab:[facility], [address] [place] [phone] Notes/Report: Sodium 134 135-145 mmol/L Potassium 3.9 3.3-5.1 mmol/L Chloride 102 96-108 mmol/L Carbon Dioxide 23 22-29 mmol/L Anion Gap 13 12-20 Blood Urea Nitrogen 13 9-16 mg/dL Creatinine 1.19 0.5-1.4 mg/dL Creatinine Clr Calc Pharmacy 49.3 eGFR (calculated from the MDRD study equation) and eCrCl (calculated from the Cockcroft-Gault equation) are based on different parameters and may not yield comparable results. If eCrCl result is absurd, please check patient's height/weight. Estimated Glomerular Filt Rate > 60 NOTE: For -Slovenian individuals, multiply the result by 1.210. Chronic Kidney Disease: Estimated GFR < 60 mL/min/1.73m2 Severe Kidney Disease: Estimated GFR < 15 mL/min/1.73m2 Glucose Random 141 60-115 mg/dL Calcium 9.0 8.4-10.2 mg/dL Bilirubin Total 1.0 0.0-1.0 mg/dL Aspartate Amino Transferase 17 5-37 U/L Alanine Aminotransferase 18 0-40 U/L Total Protein 7.1 6.5-8.0 g/dL Albumin Level 4.0 3.5-5.0 g/dL Alkaline Phosphatase 86 39-117 U/L Lactic Acid Reviewed date:11/01/2023 11:22:47 PM Interpretation:Normal Performing Lab:[facility], [address] [place] [phone] Notes/Report: Lactic Acid 1.0 0.5-2.0 mmol/L Magnesium Reviewed date:11/01/2023 11:22:47 PM Interpretation:Normal Performing Lab:[address] [phone] Notes/Report: Magnesium 1.6 1.6-2.6 mg/dL Creatine Kinase Total Reviewed date:11/02/2023 09:28:05 AM Interpretation:Normal Performing Lab:[address] [phone] Notes/Report: Creatine Kinase Total 51 38-174 U/L Blood Culture (First) Reviewed date:11/07/2023 09:17:50 AM Interpretation:Negative Performing Lab:[address] [phone] Notes/Report: Blood Culture (First) No growth after 5 days. Blood Culture (Second) Reviewed date:11/07/2023 09:18:10 AM Interpretation:Negative Performing Lab:[facility], [address] [place] [phone] Notes/Report: Blood Culture (Second) No growth after 5 days. SLIDE REVIEW Reviewed date:11/01/2023 11:23:22 PM Interpretation:Verified Performing Lab:[address] [phone] Notes/Report: SLIDE REVIEW VERIFIED Complete Blood Count no Diff Reviewed date:11/02/2023 09:28:05 AM Interpretation:Abnormal Performing Lab:[address] [address] Notes/Report: White Blood Count 13.5 4.8-10.8 X10*3/uL Red Blood Count 4.69 4.60-5.80 X10*6/uL Hemoglobin 14.2 14.0-18.0 g/dl Hematocrit 41.1 42.0-52.0 % Mean Corpuscular Volume 87.6 80.0-98.0 fL Mean Corpuscular Hemoglobin 30.3 27.0-33.0 pg Mean Corpuscular HGB Conc 34.5 31.0-36.0 g/dl Red Cell Distribution Width 12.2 11.0-16.0 % Platelet Count 267 160-400 X10*3/uL Mean Platelet Volume 9.4 9.4-12.4 fL NRBC Pct Auto 0.0 0.0-0.2 /100WBC NRBC Abs Auto 0.000 0.0-0.012 X10*3/uL Basic Metabolic Panel Reviewed date:11/02/2023 09:28:05 AM Interpretation:Abnormal Performing Lab:[address] [phone] Notes/Report: Sodium 139 135-145 mmol/L Potassium 3.8 3.3-5.1 mmol/L Chloride 105 96-108 mmol/L Carbon Dioxide 27 22-29 mmol/L Anion Gap 11 12-20 Blood Urea Nitrogen 12 9-16 mg/dL Creatinine 1.23 0.5-1.4 mg/dL Creatinine Clr Calc Pharmacy 47.9 eGFR (calculated from the MDRD study equation) and eCrCl (calculated from the Cockcroft-Gault equation) are based on different parameters and may not yield comparable results. If eCrCl result is absurd, please check patient's height/weight. Estimated Glomerular Filt Rate 58 NOTE: For -Slovenian individuals, multiply the result by 1.210. Chronic Kidney Disease: Estimated GFR < 60 mL/min/1.73m2 Severe Kidney Disease: Estimated GFR < 15 mL/min/1.73m2 Glucose Random 87 60-115 mg/dL Calcium 8.5 8.4-10.2 mg/dL Complete Blood Count Auto Di ff Reviewed date:11/03/2023 12:47:52 PM Interpretation:Abnormal Performing Lab:[facility], [address] [place] [phone] Notes/Report: White Blood Count 10.6 4.8-10.8 X10*3/uL Red Blood Count 4.35 4.60-5.80 X10*6/uL Hemoglobin 13.2 14.0-18.0 g/dl Hematocrit 38.8 42.0-52.0 % Mean Corpuscular Volume 89.2 80.0-98.0 fL Mean Corpuscular Hemoglobin 30.3 27.0-33.0 pg Mean Corpuscular HGB Conc 34.0 31.0-36.0 g/dl Red Cell Distribution Width 12.1 11.0-16.0 % Platelet Count 269 160-400 X10*3/uL Mean Platelet Volume 9.4 9.4-12.4 fL Neutrophils Percent Auto 74.3 45-73 % Imm Gran Pct Auto 1.0 0.0-0.4 % Lymphocytes Percent Auto 12.2 20-40 % Monocytes Percent Auto 8.0 2-11 % Eosinophils Percent Auto 4.2 0-4 % Basophils Percent Auto 0.3 0-2 % NRBC Pct Auto 0.0 0.0-0.2 /100WBC Neutrophils Absolute Auto 7.9 2.0-8.3 x10*3/u L Imm Gran Abs Auto 0.11 0.00-0.03 X10*3/uL Lymphocytes Absolute Auto 1.3 1.2-4.9 X10*3/u L Monocytes Absolute Auto 0.9 0.1-1.2 X10*3/uL Eosinophils Absolute Auto 0.5 0.0-0.4 X10*3/u L Basophils Absolute Auto 0.0 0.0-0.2 X10*3/uL NRBC Abs Auto 0.000 0.0-0.012 X10*3/uL Hold Green Gel Reviewed date:11/03/2023 12:47:52 PM Interpretation:Hold Performing Lab:[facility], [address] [place] [id number] Notes/Report: Hold Green Gel See Note Specimen held untested for 24 hours; Call to request Chemistry testing. Phosphorus Reviewed date:11/07/2023 03:31:26 PM Interpretation:Normal Performing Lab:[facility], [address] [place] [id number] Notes/Report: Phosphorus 3.0 2.7-4.5 mg/dL Magnesium Reviewed date:11/07/2023 03:31:26 PM Interpretation:Normal Performing Lab:[facility], [address] [place] [phone] Notes/Report: Magnesium 2.0 1.6-2.6 mg/dL Complete Blood Count Auto Di ff Reviewed date:11/07/2023 03:31:26 PM Interpretation:Abnormal Performing Lab:[facility], [address] [place] [phone] Notes/Report: White Blood Count 7.6 4.8-10.8 X10*3/uL Red Blood Count 4.55 4.60-5.80 X10*6/uL Hemoglobin 13.8 14.0-18.0 g/dl Hematocrit 40.3 42.0-52.0 % Mean Corpuscular Volume 88.6 80.0-98.0 fL Mean Corpuscular Hemoglobin 30.3 27.0-33.0 pg Mean Corpuscular HGB Conc 34.2 31.0-36.0 g/dl Red Cell Distribution Width 12.1 11.0-16.0 % Platelet Count 332 160-400 X10*3/uL Mean Platelet Volume 9.8 9.4-12.4 fL Neutrophils Percent Auto 71.8 45-73 % Imm Gran Pct Auto 1.2 0.0-0.4 % Lymphocytes Percent Auto 13.8 20-40 % Monocytes Percent Auto 9.5 2-11 % Eosinophils Percent Auto 3.4 0-4 % Basophils Percent Auto 0.3 0-2 % NRBC Pct Auto 0.0 0.0-0.2 /100WBC Neutrophils Absolute Auto 5.4 2.0-8.3 x10*3/u L Imm Gran Abs Auto 0.09 0.00-0.03 X10*3/uL Lymphocytes Absolute Auto 1.0 1.2-4.9 X10*3/u L Monocytes Absolute Auto 0.7 0.1-1.2 X10*3/uL Eosinophils Absolute Auto 0.3 0.0-0.4 X10*3/u L Basophils Absolute Auto 0.0 0.0-0.2 X10*3/uL NRBC Abs Auto 0.000 0.0-0.012 X10*3/uL Basic Metabolic Panel Reviewed date:11/07/2023 03:31:26 PM Interpretation:Normal Performing Lab:[facility], [address] [place] [phone] Notes/Report: Sodium 138 135-145 mmol/L Potassium 3.9 3.3-5.1 mmol/L Chloride 102 96-108 mmol/L Carbon Dioxide 29 22-29 mmol/L Anion Gap 11 12-20 Blood Urea Nitrogen 14 9-16 mg/dL Creatinine 1.32 0.5-1.4 mg/dL Estimated Glomerular Filt Rate 54 NOTE: For -Slovenian individuals, multiply the result by 1.210. Chronic Kidney Disease: Estimated GFR < 60 mL/min/1.73m2 Severe Kidney Disease: Estimated GFR < 15 mL/min/1.73m2 Glucose Random 70 60-115 mg/dL Calcium 9.1 8.4-10.2 mg/dL Complete Blood Count Auto Di ff Reviewed date:11/20/2023 11:54:52 AM Interpretation:Abnormal Performing Lab:[facility], [address] [place] [phone] Notes/Report: White Blood Count 6.8 4.8-10.8 X10*3/uL Red Blood Count 4.69 4.60-5.80 X10*6/uL Hemoglobin 14.4 14.0-18.0 g/dl Hematocrit 41.2 42.0-52.0 % Mean Corpuscular Volume 87.8 80.0-98.0 fL Mean Corpuscular Hemoglobin 30.7 27.0-33.0 pg Mean Corpuscular HGB Conc 35.0 31.0-36.0 g/dl Red Cell Distribution Width 12.9 11.0-16.0 % Platelet Count 246 160-400 X10*3/uL Mean Platelet Volume 10.0 9.4-12.4 fL Neutrophils Percent Auto 66.7 45-73 % Imm Gran Pct Auto 0.9 0.0-0.4 % Lymphocytes Percent Auto 19.8 20-40 % Monocytes Percent Auto 7.5 2-11 % Eosinophils Percent Auto 4.7 0-4 % Basophils Percent Auto 0.4 0-2 % NRBC Pct Auto 0.0 0.0-0.2 /100WBC Neutrophils Absolute Auto 4.5 2.0-8.3 x10*3/u L Imm Gran Abs Auto 0.06 0.00-0.03 X10*3/uL Lymphocytes Absolute Auto 1.3 1.2-4.9 X10*3/u L Monocytes Absolute Auto 0.5 0.1-1.2 X10*3/uL Eosinophils Absolute Auto 0.3 0.0-0.4 X10*3/u L Basophils Absolute Auto 0.0 0.0-0.2 X10*3/uL NRBC Abs Auto 0.000 0.0-0.012 X10*3/uL Urinalysis Reviewed date:11/20/2023 11:54:52 AM Interpretation:Abnormal Performing Lab:[address] [phone] Notes/Report: Color Urine Yellow Appearance Urine Clear PH 6.0 5.0-9.0 Glucose Urine UA Negative Negative mg/dL Urine Blood Negative Negative Specific [place] - Urine <= 1.005 1.005-1.025 Urine Protein Negative Neg-Trace mg/dL Urine Ketones Negative Negative mg/dL Nitrite Urine Negative Negative Leukocyte Esterase Urine Small (1+) Negative Pathology Reviewed date:12/11/2023 02:06:30 PM Interpretation:Benign Performing Lab:[address] [phone] Notes/Report: Prostate Specific Antigen Reviewed date:07/06/2024 04:31:50 PM Interpretation:Normal Performing Lab:[address] [phone] Notes/Report: Prostate Specific Antigen 3.24 <0.05-4.0 ng/mL PSA methodology: Corrigan Alinity i Chemiluminescent Microparticle Immunoassay (CMIA) Urine Culture Reviewed date:07/19/2024 12:16:57 PM Interpretation:Abnormal Performing Lab:[address] [phone] Notes/Report: O:STANEG Coag negative Staphylococcus Urine Culture Quant Urine Culture > 100,000 cfu/mL Clindamycin <=0.25 Erythromycin <=0.25 Nitrofurantoin <=16 Oxacillin >=4 Penicillin-G >=0.5 Tetracycline <=1 Trimethoprim/Sulfamethoxaz ole <=10 Vancomycin 1 REASON FOR REFERRAL Reason kidney Diagnosis 1 Benign prostatic hyp erplasia with lower urinary tract symptoms (N40.1) Referral [facility] Referring Provider First Name Deacon Referring Provider Last Name Donald Referring Provider Speciality Internal M edicine Referred Provider Sunday Suh Referred Provider Specialty Nephrology Referral Priority Routine Referral Appointment Date 11/29/2023 MEDICATIONS Medication SIG (Take, Route, Frequency, Duration) Notes Start Date End Date Status Cecilia Allergy 180 MG 1 tablet Swallow whole with water; do not take with fruit juices. Orally Once a day Active Paxlovid (300/100) 20 x 150 MG & 10 x 100MG 3 tablets Orally Twice a day for 5 days 04/18/2024 Active Probiotic 250 MG 1 capsule Orally Onc e a day Active Magnesium 125 MG 1 capsule with a marvin l Orally Once a day Active Vitamin D 25 MCG (1000 UT) 1 tablet Oral ly Once a day Active Multivitamins 1 capsule Orally Onc e a day Active IMMUNIZATIONS Vaccine Route Administration Date Status Comme nts TDaP Unknown 05/18/2012 Administered Influenza IM Intramuscular 06/02/2016 Administered Influenza IM Intramuscular 05/14/2017 Administered Influenza Quad IM Intramuscular 05/28/2018 Administered Influenza Quad IM Intramuscular 05/16/2020 Administered COVID-19 Pfizer BioNTech Unknown 10/29/2020 Administere d TDaP Unknown 06/08/2012 Administered Influenza Unknown 06/08/2012 Administered COVID-19 Pfizer BioNTech Unknown 10/09/2020 Administere d COVID-19 Pfizer BioNTech Unknown 06/28/2021 Administere d Influenza Unknown 06/03/2013 Administered Influenza Quad Unknown 05/03/2021 Administered COVID-19 Pfizer Bivalent Unknown 05/04/2022 Administere d PCV 20 Unknown 12/09/2021 Administered SOCIAL HISTORY Tobacco Use: Social History Observation Description Date Details (start date - stop date) Former Smoker NA - NA Sex Assigned At : Social History Observation Description Sex Assigned At Unknown Tobacco Use/Smoking Question Answer Notes Patient is a former smoker How long has it been since y ou last smoked? > 10 years Additional Findings: Tobacco Non-User Fo rmer smoker, currently using no form of tobacco Alcohol Screen Question Answer Notes Did you have a drink contain ing alcohol in the past year? Yes How often did you have a dri nk containing alcohol in the past year? 4 or more times a week (4 points) How many drinks did you have on a typical day when you were drinking in the past year? 1 or 2 drinks (0 point) How often did you have 6 or more drinks on one occasion in the past year? Never (0 point) Points 4 Interpretation Positive PROBLEMS Problem Type ICD Code Onset Dates Problem Status W/U Status Risk SNOMED Code Notes Problem Vitamin D deficiency (E55.9) Active confirmed 03563776 Problem Other obesity due to excess calories (E66.09) Active confirmed 801521834 Problem Other idiopathic scoliosis, thoracolumbar region (M41.25) Active confirmed 048217724 Problem Benign non-nodular prostatic hyperplasia with lower urinary tract symptoms (N40.1) Active confirmed 705905945 Problem Benign prostatic hyperplasia with lower urinary tract symptoms (N40.1) Active confirmed Lower urinary tract symptoms due to benign prostatic hypertrophy (88701428869020 ) Problem Body mass index [BMI] 31.0-31.9, adult (Z68.31) Active confirmed 236878313 Problem Body mass index [BMI] 32.0-32.9, adult (Z68.32) Active confirmed 083807398 Problem Primary hypertension (I10) Active confirmed 91606532 VITAL SIGNS Heart Rate 100 /min 11/06/2023 Blood pressure diastolic 80 mm Hg 01/29/2024 Height 59.50 in 01/29/2024 Blood pressure systolic 130 mm Hg 01/29/2024 Weight 159 lbs 01/29/2024 BMI 31.57 kg/m2 01/29/2024 Encounters Encounter Location Date Provider Diagnosis Deacon Bennett DO [address] [id number] 01/29/2024 Deacon Bennett Vitamin D deficiency E55.9 ; Benign prostatic hyperplasia with lower urinary tract symptoms N40.1 ; Primary hypertension I10 ; Other obesity due to excess calories E66.09 and Encounter for general adult medical examination without abnormal findings Z00.00 Deacon Bennett DO [address] [id number] 09/26/2023 Deacon Bennett Benign non-nodular prostatic hyperplasia with lower urinary tract symptoms N40.1 ; Vitamin D deficiency E55.9 and Primary hypertension I10 Deacon Bennett DO [address] [id number] 12/05/2023 Deacon Bennett Benign prostatic hyperplasia with lower urinary tract symptoms N40.1 ; Primary hypertension I10 and Vitamin D deficiency E55.9 Deacon Bennett DO, [address] [id number] 11/06/2023 Deacon Bennett Primary hypertension I10 ; Benign non-nodular prostatic hyperplasia with lower urinary tract symptoms N40.1 and Vitamin D deficiency E55.9 Deacon Bennett DO, [facility] [address] [place], [place] [id number] 10/15/2023 Deacon Bennett DO, [address] [id number] 10/26/2023 Deacon Bennett DO, [address] [id number] 10/29/2023 Deacon Bennett DO, [address] [id number] 11/02/2023 Deacon Bennett DO, [address] [id number] 11/05/2023 Deacon Bennett DO, [address] [id number] 01/23/2024 Deacon Bennett DO, [address] [id number] 02/05/2024 Deacon Bennett DO, [address] [id number] 05/21/2024 Deacon Bennett DO, [address] [id number] 09/17/2023 Deacon Bennett DO, [address] [id number] 08/28/2023 Deacon Bennett DO, [address] [id number] 10/31/2023 Deacon Bennett DO, [address] [id number] 10/31/2023 Deacon Bennett DO, [address] [id number] 11/05/2023 Deacon Bennett DO, [address] [id number] 11/08/2023 Deacon Bennett DO, [facility] [address] [place], [place] [id number] 11/12/2023 Deacon Bennett Deacon Bennett DO, [address] [id number] 11/19/2023 Deacon Bennett Benign non-nodular prostatic hyperplasia with lower urinary tract symptoms N40.1 and Primary hypertension I10 Deacon Elena MartinDonald , [facility] [address] [place], [place] [id number] 12/17/2023 Deacon Bennett Deacon Bennett DO, [address] [id number] 12/31/2023 Deacon Donald Deacon Bennett DO, [address] [id number] 12/31/2023 Deacon Bennett Deacon Bennett DO, [address] [id number] 01/30/2024 Deacon Bennett Deacon Bennett DO, [address] [id number] 04/18/2024 Deacon Bennett ASSESSMENTS Encounter Date Diagnosis Assessment Notes Treatment Notes Treatment Clinical Notes 01/29/2024 Vitamin D deficiency (ICD-10 - E55.9) 01/29/2024 Benign prostatic hyperplasia with lower urinary tract symptoms (ICD-10 - N40.1) Doing well. Follow up with Urology 09/26/2023 Vitamin D deficiency (ICD-10 - E55.9) 09/26/2023 Benign non-nodular prostatic hyperplasia with lower urinary tract symptoms (ICD-10 - N40.1) 12/05/2023 Benign prostatic hyperplasia with lower urinary tract symptoms (ICD-10 - N40.1) Follow up with Urology 12/05/2023 Primary hypertension (ICD-10 - I10) 11/06/2023 Benign non-nodular prostatic hyperplasia with lower urinary tract symptoms (ICD-10 - N40.1) Follow up with Urology 11/06/2023 Primary hypertension (ICD-10 - I10) Low salt diet 11/19/2023 Benign non-nodular prostatic hyperplasia with lower urinary tract symptoms (ICD-10 - N40.1) 11/19/2023 Primary hypertension (ICD-10 - I10) 01/29/2024 Primary hypertension (ICD-10 - I10) Low salt diet 09/26/2023 Primary hypertension (ICD-10 - I10) Diet, exercise, weight loss, salt avoidance. Check BP in the office 12/05/2023 Vitamin D deficiency (ICD-10 - E55.9) 11/06/2023 Vitamin D deficiency (ICD-10 - E55.9) 01/29/2024 Other obesity due to excess calories (ICD-10 - E66.09) Diet, weight loss 01/29/2024 Encounter for general adult medical examination without abnormal findings (ICD-10 - Z00.00) Stay active PLAN OF TREATMENT Next Appt Details Provider Name:Deacon Evans thaddeus, 07/30/2024 10:30:00 AM, [address] [place] [address], [id number], Insurance Providers Payer Name Payer Address Payer Phone Subscriber Number Group Number Insured Name Patient Relationship to Insured Coverage Start Date Coverage End Date MEDICARE [address] [phone] [id number] Adan Collins Self - patient is the insured MEDEX [address] [place] [address] [id number] Adan Collins Self - patient is the insured MEDICAL (GENERAL) HISTORY Medical History History ICD Code benign prostatic hyperplasia (BPH) renal lithiasis scoliosis coronary artery disease pericarditis pulmonary embolism tubular adenoma Environmental allergies Z91.09 Uvular edema K13.79 Vitamin D deficiency E55.9 Primary hypertension I10 Surgical History Surgery Date(Month/Year) tonsillectomy and adenoidectomy wisdom teeth extraction cyst removal vasectomy prostate gren light laser resection 11/12 024
--- OUTSIDE RECORDS SUMMARY | 2024-07-25 09:43 | XMS_ITS | Patient Health Record ---
Author Organization [facility] Address [address] [place] [address] Care Team Providers Care Mortgage Branch Manager Name Role Phone Deacon Bennett DO Primary Care Provider Unavail Jaycob Howard Jr Unavailable ALLERGIES Allergen (clinical drug ingredient) Drug/Non Drug Allergy documented on EMR Reaction Allergy Type Onset Date Status Sulfa Unknown Drug Allergy Active REASON FOR REFERRAL No Information MEDICATIONS Medication SIG (Take, Route, Frequency, Duration) Notes Start Date End Date Status Vitamin D (Cholecalciferol) 25 MCG (1000 UT) 1 capsule Orally Once a day for 30 day(s) Active Magnesium 125 MG as directed Orally Active Aspirin 81 MG 1 tablet Orally Once a day Active Multivitamins Active Saw Neha Active IMMUNIZATIONS Vaccine Route Administration Date Status Comme nts Influenza Unknown 06/14/2022 Administered SOCIAL HISTORY Sex Assigned At : Social History Observation Description Sex Assigned At Unknown PROBLEMS Problem Type ICD Code Onset Dates Problem Status W/U Status Risk SNOMED Code Notes Problem Colon cancer screening (Z12.11) Active confirmed 979759185 Problem Personal history of colonic polyps (Z86.010) Active confirmed History of polyp of colon (situation) (734230465) Problem Encounter for other preprocedural examination (Z01.818) Active confirmed 04843092 Problem Long-term use of aspirin therapy (Z79.82) Active confirmed 931503149 PLAN OF TREATMENT Future Test Test Name Order Date COLONOSCOPY 03/20/2012 COLONOSCOPY 04/25/2017 COLONOSCOPY 07/12/2022 Insurance Providers Payer Name Payer Address Payer Phone Subscriber Number Group Number Insured Name Patient Relationship to Insured Coverage Start Date Coverage End Date MEDICARE OF [place] [address] [place] [address] [id number] EVELYNJOSIAH RIVER Self - patient is the insured MEDEX ATTN CLAIMS [address] [place] [phone] [id number] JOSIAH RIVAS Self - patient is the insured MEDICAL (GENERAL) HISTORY Medical History History ICD Code Colonoscopy 07/20/17, diverti culosis and hyperplastic polyps, previous history of tubular adenoma 2011, five-year followup Scoliosis Nephrolithiasis Coronary artery disease and history of v iral pericarditis BPH with urinary retention pulmonary embolism 2013 Surgical History Surgery Date(Month/Year) tonsillectomy and adenoidectomy vasectomy
[2024-07-25 10:51] LABS: Blood Urea Nitrogen 11 mg/dL (9-16); Estimated Glomerular Filt Rate > 60
[2024-07-25 11:15] LABS: Appearance Urine Turbid; Color Urine Yellow; Glucose Urine UA Negative (Negative); Leukocyte Esterase Urine Large (3+) (Negative); Nitrite Urine Negative (Negative); UMIC TRIGGER UA YES; Urine Blood Small (1+) (Negative); Urine Ketones Negative (Negative); Urine Protein Negative (Neg-Trace)
[2024-07-25 11:36] LABS: Bacteria Urine 1+ (None Seen); Squamous Epithelial Cell Urine 0-2 /HPF (0-2); WBC Urine >50 /HPF (0-5)
[2024-07-31 15:04] LABS: Testosterone, Free 64.5 pg/mL (30.0-135.0); Testosterone, Total 430 ng/dL (250-1100)
== END 2024-07-25 09:39 | disposition home or self-care (01) ==
LOC: HO.LAB 09:38
PROVIDERS: PCP Internal Medicine; Visit Provider Urology
DX: R68.82 Decreased libido (principal); R33.9 Retention of urine, unspecified; N39.0 Urinary tract infection, site not specified; R39.15 Urgency of urination; N13.30 Unspecified hydronephrosis; R39.0 Extravasation of urine; B95.7 Other staphylococcus as the cause of diseases classified elsewhere
CPT/HCPCS: 36415; 81001; 82565; 84402; 84403; 84520; 87086; 87147; 87186

== ENCOUNTER 2024-09-11 09:42 | Outpatient (AMB) | payer MEDICARE, SELFPAY ==
--- NOTE | 2024-09-11 09:38 | A.OFFVIS_ITS ---
Vital Signs 09/11/24 09:49 Height 5 ft 2 in Weight 163 lb BMI 29.8 BP 167/85 H Blood Pressure Location Lt brachial Position Sitting Pulse 107 H Intake Visit Reasons: Umbilical hernia Intake Note: Patient is seen in office for evaluation and treatment of an umbilical hernia. Pt c/o: feels a lump in the umbilical since 2021, reducible, denies any other concerns such as n/v/d/c Steam Drier Tender Required: No Accompanied by: Self / Same As Patient Allergies indomethacin [From INDOCIN] Allergy (Intermediate, Verified 09/11/24 09:46) Confusion Sulfa (Sulfonamide Antibiotics) Allergy (Unknown, Verified 09/11/24 09:46) RASH tamsulosin [Flomax] Adverse Reaction (Unknown, Verified 09/11/24 09:46) swelling HPI Comments Details: 69-year-old male patient returning for evaluation of an umbilical hernia. He first noted the lump approximately 3 years ago but denies any inciting event. He did have an episode of nausea and vomiting after developing the flu and feels that this may have aggravated the hernia. He currently denies any pain, nausea, vomiting, constipation, or diarrhea. He denies a previous history of surgery in this location. He has a known history of a diastasis recti evaluated by Dr. Rowe approximately 20 years ago. He has not lost much weight since his last visit and now is planning a vacation to [place] [place] in November this year. He is requesting evaluation to see if the hernia should be fixed prior to his vacation or after. He denies any significant pain but does feel the hernia may have increased in size slightly. [facility] Medical History Urinary retention with incomplete bladder emptying Hx of peripheral vascular disease Viral pericarditis Diverticulosis Scoliosis BPH (benign prostatic hyperplasia) Other obstructive and reflux uropathy Renal stones History of pulmonary embolism Increased prostate specific antigen (PSA) velocity Surgical History H/O colonoscopy Hx of vasectomy H/O removal of cyst Triplett teeth extracted History of tonsillectomy and adenoidectomy Family History Father No problems noted. Mother No problems noted. Brother No problems noted. Daughter No problems noted. Daughter No problems noted. Social History Household Members: Spouse Housing: House Do you presently have visiting nurse or other home services: No Alcohol intake: current Alcohol intake frequency: holidays/special occasions only Patient Tobacco Use Status: Former Tobacco user Tobacco use type: Cigarette Second Hand Smoke Exposure: No service: No Review of Systems Const All systems reviewed & are unremarkable except as noted in HPI and below Denies chills, Denies fever(s), Denies headache(s) and Denies poor appetite ENT Denies dizziness and Denies headache(s) Card Denies chest pain, Denies rapid heart rate, Denies palpitations and Denies slow heart rate Resp Denies chest congestion, Denies cough, Denies pain on inspiration and Denies wheezing GI Denies abdominal pain, Denies bloating, Denies change in stool character, Denies constipation, Denies diarrhea, Denies nausea, Denies vomiting and Denies hematemesis Musc Denies back pain, Denies arthralgias, Denies joint swelling and Denies numbness Skin/Breast Denies change in pigmentation, Denies erythema and Denies rash Neuro Denies dizziness, Denies headache(s) and Denies numbness Psych Denies anxiety and Denies depression Endo Denies palpitations Leo/Lymph Denies easy bleeding, Denies easy bruising and Denies lymphadenopathy Aller/Immun Denies wheezing Physical Exam Const General: cooperative, comfortable and well developed Nutritional Appearance: well nourished Orientation/consciousness: patient oriented x3 Eyes Sclerae: sclerae normal EOM: EOMs intact bilaterally Neck Neck: Yes normal visual inspection Resp Effort & Inspection: normal respiratory effort, no cough, no respiratory distress and no stridor Cardio Jugular venous distension: no JVD GI Inspection: Yes normal to inspection Palpation (GI): Soft to palpation, nontender, no guarding, not rigid and Hernia present umbilical (Small, easily reducible, nontender) Skin General skin exam: dry skin Rashes: no rashes Neuro General: patient oriented x3 and no focal motor deficits Extrem General: Yes full ROM and Yes no clubbing, cyanosis or edema Psych Appearance: grossly normal Assessment & Plan Assessment & Plan (1) Umbilical hernia: Code(s): K42.9 - Umbilical hernia without obstruction or gangrene Category: Medical Qualifiers: Obstruction and gangrene presence: without obstruction or gangrene Qualified Code(s): K42.9 - Umbilical hernia without obstruction or gangrene Plan Patient continues to have a small easily reducible probable fat containing umbilical hernia. The hernia can easily be repaired under MAC with mesh but would suggest waiting until after his vacation to have the repair. Patient will call when he is ready to schedule the surgery. Coding Level of Care Code Est Pt Level 3 (41063) Diagnoses Umbilical hernia without obstruction and without gangrene K42.9 Obstruction and gangrene presence: without obstruction or gangrene
[2024-09-11 09:49] VITALS: BP 167/85; PULSE 107; BMI 29.8
--- OUTSIDE RECORDS SUMMARY | 2024-09-11 12:43 | XMS_ITS ---
Author Organization Deacon Bennett DO [facility] Address [address] [place], [place] [id number] Care Team Providers Care Generator Mechanic Name Role Phone Deacon Bennett Primary Care Provider [phone] REASON FOR VISIT Adan Dennis - Covid infection MEDICATIONS Medication SIG (Take, Route, Frequency, Duration) Notes Start Date End Date Status Paxlovid (300/100) 20 x 150 MG & 10 x 100MG 3 tablets Orally Twice a day for 5 days 04/18/2024 Active Encounters Encounter Location Date Provider Diagnosis Deacon Bennett DO, FACP [address] [place] [phone] 04/18/2024 Deacon Bennett PLAN OF TREATMENT Medication Medication Name Sig Start Date Stop Date Notes Paxlovid (300/100) 20 x 150 MG & 10 x 100MG 3 tablets Orally Twice a day for 5 days 04/18/2024 Next Appt Details Provider Name:Deacon travis, 10/28/2024 11:30:00 AM, [address] [place], [place], [phone],
--- OUTSIDE RECORDS SUMMARY | 2024-09-11 12:43 | XMS_ITS ---
Author Organization Deacon Bennett DO, FACP Address [address] [place], [place] [id number] Care Team Providers Care Fiscal Economist Name Role Phone Deacon Bennett Primary Care Provider ALLERGIES Allergen (clinical drug ingredient) Drug/Non Drug Allergy documented on EMR Reaction Allergy Type Onset Date Status sulfa hives Drug Allergy Active indomethacin Indomethacin mental status changes Drug Allergy Active REASON FOR VISIT 6 month f/u, Follow up benign prostatic hyperplasia (BPH), Vitamin D deficiency MEDICATIONS Medication SIG (Take, Route, Frequency, Duration) Notes Start Date End Date Status Multivitamins 1 capsule Orally Onc e a day Active Probiotic 250 MG 1 capsule Orally Onc e a day Active Cecilia Allergy 180 MG 1 tablet Swallow whole with water; do not take with fruit juices. Orally Once a day Active Vitamin D 25 MCG (1000 UT) 1 tablet Oral ly Once a day Active Magnesium 125 MG 1 capsule with a marvin l Orally Once a day Active SOCIAL HISTORY Tobacco Use: Social History Observation [...] Never (0 point) Points 4 Interpretation Positive VITAL SIGNS BMI 32.17 kg/m2 07/30/2024 Blood pressure systolic 130 mm Hg 07/30/20 24 Blood pressure diastolic 72 mm Hg 024 Height 59.50 in 07/30/2024 Weight 162 lbs 07/30/2024 Encounters Encounter Location Date Provider Diagnosis Deacon Bennett DO, FACP [address] [place], [place] [phone] 07/30/2024 Deacon Bennett Vitamin D deficiency E55.9 and Benign prostatic hyperplasia with lower urinary tract symptoms N40.1 ASSESSMENTS Encounter Date Diagnosis Assessment Notes Treatment Notes Treatment Clinical Notes 07/30/2024 Vitamin D deficiency (ICD-10 - E55.9) 07/30/2024 Benign prostatic hyperplasia with lower urinary tract symptoms (ICD-10 - N40.1) PLAN OF TREATMENT Medication Medication Name Sig Start Date Stop Date Notes Multivitamins 1 capsule Orally Once a day Probiotic 250 MG 1 capsule Orally Once a day Cecilia Allergy 180 MG 1 tablet Swallow whole with water; do not take with fruit juices. Orally Once a day Vitamin D 25 MCG (1000 UT) 1 tablet Orally Once a day Magnesium 125 MG 1 capsule with a marvin l Orally Once a day Next Appt Details Follow Up: 3 Months, Reason: follow up visit Provider Name:Deacon Evans thaddeus, 10/28/2024 11:30:00 AM, [address] [place] [address], [phone], Progress Notes * Examination Category Sub-Category Detail Notes General Examination GENERAL APPEARANCE: in no ac yurok distress, well developed, well nourished HEAD: normocephalic, atrau matic HEART: no murmurs, regular rate and rhythm, S1, S2 normal LUNGS: clear to auscultatio n bilaterally ABDOMEN: normal, bowel sounds present, soft, nontender, nondistended SKIN: warm and dry EXTREMITIES: no edema PSYCH: alert, oriented, cog nitive function intact
--- OUTSIDE RECORDS SUMMARY | 2024-09-11 12:43 | XMS_ITS ---
Author Organization Deacon Bennett DO, [facility] Address [address] [place], [place] [phone] Care Team Providers Care Legal Biller Name Role Phone Deacon Bennett Primary Care Provider REASON FOR VISIT Message Encounters Encounter Location Date Provider Diagnosis Deacon Bennett DO, FACP [address] [place] [phone] 05/21/2024 Deacon Bennett PLAN OF TREATMENT Next Appt Details Provider Name:Deacon travis, 10/28/2024 11:30:00 AM, [address] [place], [place], [phone],
== END 2024-09-11 10:01 | disposition home or self-care (01) ==
PROVIDERS: PCP Internal Medicine; Visit Provider Surgery
DX: K42.9 Umbilical hernia without obstruction or gangrene (principal)
CPT/HCPCS: 99213

== ENCOUNTER → 2024-09-11 09:42 | Outpatient (BNVA) | payer MEDICARE, SELFPAY | PROVIDERS: PCP Internal Medicine; Visit Provider Surgery | DX: K42.9 Umbilical hernia without obstruction or gangrene (principal) | CPT/HCPCS: 99212 ==

== ENCOUNTER 2024-10-02 11:49 | Outpatient (REF) | payer MEDICARE, SELFPAY ==
--- OUTSIDE RECORDS SUMMARY | 2024-10-02 13:02 | XMS_ITS ---
Author Organization Deacon Bennett DO, [facility] Address [address] [place], [place] [phone] Care Team Providers Care Die Operator Name Role Phone Deacon Bennett Primary Care Provider [phone] REASON FOR VISIT Message Encounters Encounter Location Date Provider Diagnosis Deacon Bennett DO, FACP [address] [place] [phone] 05/21/2024 Deacon Bennett PLAN OF TREATMENT Next Appt Details Provider Name:Deacon travis, 10/28/2024 11:30:00 AM, [address] [place], [place], [phone],
--- OUTSIDE RECORDS SUMMARY | 2024-10-02 13:03 | XMS_ITS ---
Author Organization Deacon Bennett DO [facility] Address [address] [place], [place] [phone] Care Team Providers Care Bone Tender Name Role Phone Deacon Bennett Primary Care Provider REASON FOR VISIT Adan Dennis - Covid infection MEDICATIONS Medication SIG (Take, Route, Frequency, Duration) Notes Start Date End Date Status Paxlovid (300/100) 20 x 150 MG & 10 x 100MG 3 tablets Orally Twice a day for 5 days 04/18/2024 Active Encounters Encounter Location Date Provider Diagnosis Deacon Bennett DO, FACP [address] [place] [phone] 04/18/2024 Deacon Bennett PLAN OF TREATMENT Medication Medication Name Sig Start Date Stop Date Notes Paxlovid (300/100) 20 x 150 MG & 10 x 100MG 3 tablets Orally Twice a day for 5 days 04/18/2024 Next Appt Details Provider Name:Deacon travis, 10/28/2024 11:30:00 AM, [address] [place], [place], [phone],
--- OUTSIDE RECORDS SUMMARY | 2024-10-02 13:03 | XMS_ITS ---
Author Organization Deacon Bennett DO, FACP Address [address] [place], [place] [phone] Care Team Providers Care Treating Plant Supervisor Name Role Phone Deacon Bennett Primary Care Provider [phone] ALLERGIES Allergen (clinical drug ingredient) Drug/Non Drug [...] Provider Diagnosis Deacon Bennett DO, FACP [address] [place], [place] [phone] 07/30/2024 Deacon Bennett Vitamin D deficiency E55.9 [...] Provider Name:Deacon Evans thaddeus, 10/28/2024 11:30:00 AM, [address] [place] [address], [phone], Progress Notes * Examination Category Sub-Category Detail Notes General Examination GENERAL APPEARANCE: in no ac [place] distress, well developed, well nourished HEAD: normocephalic, atrau matic HEART: no murmurs, regular rate and rhythm, S1, S2 normal LUNGS: clear to auscultatio n bilaterally ABDOMEN: normal, bowel sounds present, soft, nontender, nondistended SKIN: warm and dry EXTREMITIES: no edema PSYCH: alert, oriented, cog nitive function intact
== END 2024-10-02 11:50 | disposition home or self-care (01) ==
LOC: HO.LAB 11:49
PROVIDERS: PCP Internal Medicine; Visit Provider Otolaryngology
DX: J30.89 Other allergic rhinitis (principal)
CPT/HCPCS: 36415; 86003

== ENCOUNTER 2024-10-08 13:24 | Outpatient (REF) | payer MEDICARE, SELFPAY ==
--- OUTSIDE RECORDS SUMMARY | 2024-10-08 17:59 | XMS_ITS | Patient Health Record ---
Author Organization Deacon Bennett DO, FAC Address [address] [place] [phone] Care Team Providers Care Spud Sorter Name Role Phone Deacon Bennett Primary Care Provider ALLERGIES Allergen (clinical drug ingredient) Drug/Non Drug Allergy documented on EMR Reaction Allergy Type Onset Date Status indomethacin Indomethacin mental status changes Drug Allergy Active sulfa hives Drug Allergy Active RESULTS Component Value Reference Range Notes Complete Blood Count Auto Di ff Reviewed date:10/26/2023 08:41:32 PM Interpretation:Abnormal Performing Lab:[facility], [address] [place] [phone] Notes/Report: White Blood Count 9.7 4.8-10.8 X10*3/uL [...] Panel Reviewed date:10/26/2023 08:41:32 PM Interpretation:Abnormal Performing Lab:[facility], [address] [place] [phone] Notes/Report: Sodium 140 135-145 mmol/L Potassium 5.0 3.3-5.1 mmol/L Chloride 105 96-108 mmol/L Carbon Dioxide 24 22-29 mmol/L Anion Gap 16 12-20 Blood Urea Nitrogen 58 9-16 mg/dL Creatinine 5.34 0.5-1.4 mg/dL Critical value for test(s):LEEANNA Results called to and read back by: LEONEL Person calling:JAMES Date: 45-77-34Ykmh:1927 Creatinine Clr Calc Pharmacy 11.5 eGFR (calculated from the MDRD study equation) and eCrCl (calculated from the Cockcroft-Gault equation) are based on different parameters and may not yield comparable results. If eCrCl result is absurd, please check patient's height/weight. Estimated Glomerular Filt Rate 11 NOTE: For -[place] individuals, multiply the result by 1.210. Chronic [...] Total Reviewed date:10/27/2023 12:15:47 PM Interpretation:Normal Performing Lab:[facility], [address] [place] [phone] Notes/Report: Creatine Kinase Total 107 38-174 U/L UA ClnCatch+Micro w/rflx Cul t Reviewed date:10/27/2023 12:15:47 PM Interpretation:Abnormal Performing Lab:[facility], [address] [place] [phone] Notes/Report: [id number] 2032 Urine, [place] Color Urine Yellow Appearance Urine Clear PH 5.5 5.0-9.0 Glucose Urine UA Negative Negative mg/dL Urine Blood Large (3+) Negative Specific [place] - Urine <= 1.005 1.005-1.025 Urine Protein [...] date:10/27/2023 12:17:29 PM Interpretation:Abnormal Performing Lab: Notes/Report: [address] [address] [address] Scan Report Signed Patient: Adan Collins MR#: [id number] 63 : 1955 Acct:[id number] Age/Sex: 68 / M ADM Date: 10/26/23 Loc: .ED Attending Dr: Ordering Physician: Gilles Lechuga MD Date of Service: 10/26/23 Procedure(s): CT abdomen pelvis wo IV con Accession Number(s): [id number] cc: Deacon Bennett DO; Gilles Lechuga MD [...] MD in OV> 10/26/232133 DD/ 00 TD/TT: Angle Bender: LAURITA Complete Blood Count Auto Di ff Reviewed date:10/27/2023 12:15:47 PM Interpretation:Abnormal Performing Lab:[facility], [address] [place] [phone] Notes/Report: White Blood Count 8.0 4.8-10.8 X10*3/uL [...] Panel Reviewed date:10/27/2023 12:15:47 PM Interpretation:Abnormal Performing Lab:[facility], [address] [place] [phone] Notes/Report: Sodium 145 135-145 mmol/L Potassium 5.4 [...] Estimated Glomerular Filt Rate 18 NOTE: For -[place] individuals, multiply the result by 1.210. Chronic Kidney Disease: Estimated GFR < 60 mL/min/1.73m2 Severe Kidney Disease: Estimated GFR < 15 mL/min/1.73m2 Glucose Random 100 60-115 mg/dL Calcium 9.4 8.4-10.2 mg/dL Hold Lav - Possible Hematolo gy Reviewed date:10/28/2023 10:16:59 AM Interpretation:Hold Performing Lab:[facility], [address] [place] [phone] Notes/Report: Hold Lav - Possible Hematology SEE NOTE Specimen will be held untested for 8 hours. Call Hematology if testing is desired. Basic Metabolic Panel Reviewed date:10/28/2023 10:17:39 AM Interpretation:Abnormal Performing Lab:[facility], [address] [place] [phone] Notes/Report: Sodium 142 135-145 mmol/L Potassium 4.1 [...] Estimated Glomerular Filt Rate 38 NOTE: For -[place] individuals, multiply the result by 1.210. Chronic Kidney Disease: Estimated GFR < 60 mL/min/1.73m2 Severe Kidney Disease: Estimated GFR < 15 mL/min/1.73m2 Glucose Random 90 60-115 mg/dL Calcium 9.2 8.4-10.2 mg/dL US renal BI Reviewed date:10/28/2023 06:38:35 PM Interpretation:Abnormal Performing Lab: Notes/Report: [address] [address] Ultrasound Report Signed Patient: Adan Collins MR#: [id number] 62 : 1955 Acct:[id number] Age/Sex: 68 / M ADM Date: 10/26/23 Loc: .S3 343-[address]: Lilliana Eng NP Ordering Physician: Lilliana Eng NP Date of Service: 10/28/23 Procedure(s): US renal BI Accession Number(s): [id number] cc: Deacon Bennett DO; Lilliana Eng NP [...] in OV> 10/28/23 1615 DD/ 0935 TD/TT: Angle Bender: TAYLOR Complete Blood Count Auto Di ff Reviewed date:11/01/2023 11:22:47 PM Interpretation:Abnormal Performing Lab:[facility], [address] [place] [phone] Notes/Report: White Blood Count 24.0 4.8-10.8 X10*3/uL [...] INR Reviewed date:11/01/2023 11:22:47 PM Interpretation:Normal Performing Lab:[address] [phone] Notes/Report: Prothrombin Time 13.1 11.1-13.3 [employer] [...] Panel Reviewed date:11/01/2023 11:22:47 PM Interpretation:Abnormal Performing Lab:[address] [place] [address] Notes/Report: Sodium 134 135-145 mmol/L Potassium 3.9 [...] Glomerular Filt Rate > 60 NOTE: For -[place] individuals, multiply the result by 1.210. Chronic [...] Acid Reviewed date:11/01/2023 11:22:47 PM Interpretation:Normal Performing Lab:[facility], [address] [place] [phone] Notes/Report: Lactic Acid 1.0 0.5-2.0 mmol/L Magnesium Reviewed date:11/01/2023 11:22:47 PM Interpretation:Normal Performing Lab:[facility], [address] [place] [phone] Notes/Report: Magnesium 1.6 1.6-2.6 mg/dL Creatine Kinase Total Reviewed date:11/02/2023 09:28:05 AM Interpretation:Normal Performing Lab:[facility], [address] [place] [phone] Notes/Report: Creatine Kinase Total 51 38-174 U/L Blood Culture (First) Reviewed date:11/07/2023 09:17:50 AM Interpretation:Negative Performing Lab:[facility], [address] [place] [phone] Notes/Report: Blood Culture (First) No growth after 5 days. Blood Culture (Second) Reviewed date:11/07/2023 09:18:10 AM Interpretation:Negative Performing Lab:[facility], [address] [place] [phone] Notes/Report: Blood Culture (Second) No growth after 5 days. SLIDE REVIEW Reviewed date:11/01/2023 11:23:22 PM Interpretation:Verified Performing Lab:[facility], [address] [place] [phone] Notes/Report: SLIDE REVIEW VERIFIED Complete Blood Count no Diff Reviewed date:11/02/2023 09:28:05 AM Interpretation:Abnormal Performing Lab:[facility], [address] [place] [phone] Notes/Report: White Blood Count 13.5 4.8-10.8 X10*3/uL [...] Panel Reviewed date:11/02/2023 09:28:05 AM Interpretation:Abnormal Performing Lab:[facility], [address] [place] [phone] Notes/Report: Sodium 139 135-145 mmol/L Potassium 3.8 [...] Estimated Glomerular Filt Rate 58 NOTE: For -[place] individuals, multiply the result by 1.210. Chronic Kidney Disease: Estimated GFR < 60 mL/min/1.73m2 Severe Kidney Disease: Estimated GFR < 15 mL/min/1.73m2 Glucose Random 87 60-115 mg/dL Calcium 8.5 8.4-10.2 mg/dL Complete Blood Count Auto Di ff Reviewed date:11/03/2023 12:47:52 PM Interpretation:Abnormal Performing Lab:[facility], [address] [place] [phone] Notes/Report: White Blood Count 10.6 4.8-10.8 X10*3/uL [...] Gel Reviewed date:11/03/2023 12:47:52 PM Interpretation:Hold Performing Lab:[facility], [address] [place] [phone] Notes/Report: Hold Green Gel See Note Specimen held untested for 24 hours; Call to request Chemistry testing. Phosphorus Reviewed date:11/07/2023 03:31:26 PM Interpretation:Normal Performing Lab:[facility], [address] [place] [phone] Notes/Report: Phosphorus 3.0 2.7-4.5 mg/dL Magnesium Reviewed date:11/07/2023 03:31:26 PM Interpretation:Normal Performing Lab:[facility], [address] [place] [phone] Notes/Report: Magnesium 2.0 1.6-2.6 mg/dL Complete Blood Count Auto Di ff Reviewed date:11/07/2023 03:31:26 PM Interpretation:Abnormal Performing Lab:[facility], [address] [place] [phone] Notes/Report: White Blood Count 7.6 4.8-10.8 X10*3/uL [...] Panel Reviewed date:11/07/2023 03:31:26 PM Interpretation:Normal Performing Lab:[facility], [address] [place] [phone] Notes/Report: Sodium 138 135-145 mmol/L Potassium 3.9 3.3-5.1 mmol/L Chloride 102 96-108 mmol/L Carbon Dioxide 29 22-29 mmol/L Anion Gap 11 12-20 Blood Urea Nitrogen 14 9-16 mg/dL Creatinine 1.32 0.5-1.4 mg/dL Estimated Glomerular Filt Rate 54 NOTE: For -[place] individuals, multiply the result by 1.210. Chronic Kidney Disease: Estimated GFR < 60 mL/min/1.73m2 Severe Kidney Disease: Estimated GFR < 15 mL/min/1.73m2 Glucose Random 70 60-115 mg/dL Calcium 9.1 8.4-10.2 mg/dL Complete Blood Count Auto Di ff Reviewed date:11/20/2023 11:54:52 AM Interpretation:Abnormal Performing Lab:[facility], [address] [place] [phone] Notes/Report: White Blood Count 6.8 4.8-10.8 X10*3/uL [...] Urinalysis Reviewed date:11/20/2023 11:54:52 AM Interpretation:Abnormal Performing Lab:[facility], [address] [place] [phone] Notes/Report: Color Urine Yellow Appearance Urine Clear PH 6.0 5.0-9.0 Glucose Urine UA Negative Negative mg/dL Urine Blood Negative Negative Specific [place] - Urine <= 1.005 1.005-1.025 Urine Protein Negative Neg-Trace mg/dL Urine Ketones Negative Negative mg/dL Nitrite Urine Negative Negative Leukocyte Esterase Urine Small (1+) Negative Pathology Reviewed date:12/11/2023 02:06:30 PM Interpretation:Benign Performing Lab:[facility], [address] [place] [phone] Notes/Report: Prostate Specific Antigen Reviewed date:07/06/2024 04:31:50 PM Interpretation:Normal Performing Lab:[facility], [address] [place] [phone] Notes/Report: Prostate Specific Antigen 3.24 <0.05-4.0 ng/mL PSA methodology: Corrigan Alinity i Chemiluminescent Microparticle Immunoassay (CMIA) Urine Culture Reviewed date:07/19/2024 12:16:57 PM Interpretation:Abnormal Performing Lab:[address] [phone] Notes/Report: O:STANEG Coag negative Staphylococcus Urine Culture Quant Urine Culture > 100,000 cfu/mL Clindamycin <=0.25 Erythromycin <=0.25 Nitrofurantoin <=16 Oxacillin >=4 Penicillin-G >=0.5 Tetracycline <=1 Trimethoprim/Sulfamethoxa zole <=10 Vancomycin 1 Urinalysis and Microscopic Reviewed date:07/25/2024 11:54:20 AM Interpretation:Abnormal Performing Lab:[facility], [address] [place] [phone] Notes/Report: Color Urine Yellow Appearance Urine Turbid PH 6.0 5.0-9.0 Glucose Urine UA Negative Negative mg/dL Urine Blood Small (1+) Negative Specific [place] - Urine 1.010 1.005-1.025 Urine Protein Negative Neg-Trace mg/dL Urine Ketones Negative Negative mg/dL Nitrite Urine Negative Negative Leukocyte Esterase Urine Large (3+) Negative RBC Urine 3-5 0-2 /HPF WBC Urine >50 0-5 /HPF Squamous Epithelial Cell Urine 0-2 0-2 /HPF Bacteria Urine 1+ None Seen Hyaline Casts Urine 3-5 0-2 /LPF Blood Urea Nitrogen Reviewed date:07/25/2024 11:02:49 AM Interpretation:Normal Performing Lab:[facility], [address] [place] [phone] Notes/Report: Blood Urea Nitrogen 11 9-16 mg/dL Creatinine Reviewed date:07/25/2024 11:02:49 AM Interpretation:Normal Performing Lab:[facility], [address] [place] [phone] Notes/Report: Creatinine 1.17 0.5-1.4 mg/dL Estimated Glomerular Filt Rate > 60 Chronic Kidney Disease: Estimated GFR < 60 mL/min/1.73m2 Severe Kidney Disease: Estimated GFR < 15 mL/min/1.73m2 Testosterone, Free/Total Reviewed date:07/31/2024 03:17:49 PM Interpretation:Normal Performing Lab:[facility], [address] [place] [phone] Notes/Report: Testosterone, Total 275 689-0514 ng/dL Men with clinically significant hypogonadal symptoms and testosterone values repeatedly in the range of the 200-300 ng/dL or less, may benefit from testosterone treatment after adequate risk and benefits counseling. For additional information, please refer to http://education.[employer]/fa q/ TotalTestosteroneM [id number] (This link is being provided for informational/ educational purposes only.) This test was developed and its analytical performance characteristics have been determined by [employer] [place], [place]. It has not been cleared or approved by the U.S. Food and Drug Administration. This assay has been validated pursuant to the CLIA regulations and is used for clinical purposes. Testosterone, Free 64.5 30.0-135.0 pg/mL This test was developed and its analytical performance characteristics have been determined by [employer] [facility] [place], [place]. It has not been cleared or approved by the U.S. Food and Drug Administration. This assay has been validated pursuant to the CLIA regulations and is used for clinical purposes. THIS TEST WAS PERFORMED AT: [employer] [address] [address] LUPE GALLEGOS MD,PHD Urine Culture Reviewed date:07/28/2024 10:47:03 AM Interpretation:Positive Performing Lab:[facility], [address] [place] [phone] Notes/Report: O:STANEG Coag negative Staphylococcus Urine Culture Quant Urine Culture > 100,000 cfu/mL Clindamycin <=0.25 Erythromycin <=0.25 Nitrofurantoin <=16 Oxacillin >=4 Penicillin-G >=0.5 Tetracycline <=1 Trimethoprim/Sulfamethoxa zole <=10 Vancomycin 1 REASON FOR REFERRAL Reason kidney Diagnosis 1 Benign prostatic hyp erplasia with lower urinary tract symptoms (N40.1) Referral Organization Deacon Adorno, FACP Referring Provider First Name Deacon Referring Provider [...] marvin l Orally Once a day Active IMMUNIZATIONS Vaccine Route Administration [...] Problem Vitamin D deficiency (E55.9) Active confirmed 41887412 Problem Other obesity due to excess calories (E66.09) Active confirmed 473752192 Problem Other idiopathic scoliosis, thoracolumbar region (M41.25) Active confirmed 416946403 Problem Benign non-nodular prostatic hyperplasia with lower urinary tract symptoms (N40.1) Active confirmed 394688967 Problem Benign prostatic hyperplasia with lower urinary tract symptoms (N40.1) Active confirmed Lower urinary tract symptoms due to benign prostatic hypertrophy (30976402224873 ) Problem Body mass index [BMI] 31.0-31.9, adult (Z68.31) Active confirmed 675434217 Problem Body mass index [BMI] 32.0-32.9, adult (Z68.32) Active confirmed 946893547 Problem Primary hypertension (I10) Active confirmed 21951512 VITAL SIGNS Heart Rate 100 /min 11/06/2023 Blood pressure diastolic 72 mm Hg 07/30/2024 Height 59.50 in 07/30/2024 Blood pressure systolic 130 mm Hg 07/30/2024 Weight 162 lbs 07/30/2024 BMI 32.17 kg/m2 07/30/2024 Encounters Encounter Location Date Provider Diagnosis Deacon Bennett DO [facility] [address] [place], [place] [id number] 01/29/2024 Deacon Bennett Vitamin D deficiency E55.9 ; Benign prostatic hyperplasia with lower urinary tract symptoms N40.1 ; Primary hypertension I10 ; Other obesity due to excess calories E66.09 and Encounter for general adult medical examination without abnormal findings Z00.[address] [facility] [address] [place], [place] [id number] 12/05/2023 Deacon Bennett Benign prostatic hyperplasia with lower urinary tract symptoms N40.1 ; Primary hypertension I10 and Vitamin D deficiency E55.[address] [facility] [address] [place], [place] [id number] 07/30/2024 Deacon Bennett Vitamin D deficiency E55.9 and Benign prostatic hyperplasia with lower urinary tract symptoms N40.1 Deacon Bennett DO, FACP [address] [place], [place] [id number] 11/06/2023 Deacon Bennett Primary hypertension I10 ; Benign non-nodular prostatic hyperplasia with lower urinary tract symptoms N40.1 and Vitamin D deficiency E55.9 Deacon Bennett DO, FACP [address] [place], [place] [id number] 10/15/2023 Deacon Bennett DO, FAC [address] [place], [place] [id number] 10/26/2023 Deacon Bennett DO, FACP [address] [place], [place] [id number] 10/29/2023 Deacon Bennett DO, FAC [address] [place], [place] [id number] 11/02/2023 Deacon Bennett DO, FAC [address] [place], [place] [id number] 11/05/2023 Deacon Bennett DO, [facility] [address] [place], [place] [id number] 01/23/2024 Deacon Bennett DO, [facility] [address] [place], [place] [id number] 02/05/2024 Deacon Bennett DO, [facility] [address] [place], [place] [id number] 05/21/2024 Deacon Bennett DO, [facility] [address] [place], [place] [id number] 10/31/2023 Deacon Bennett DO, [facility] [address] [place], [place] [id number] 10/31/2023 Deacon Bennett DO, [facility] [address] [place], [place] [id number] 11/05/2023 Deacon Bennett DO, [facility]AC [address] [place], [place] [id number] 11/08/2023 Deacon Bennett DO, [facility] [address] [place], [place] [id number] 11/12/2023 Deacon Bennett DO, [facility] [address] [place], [place] [id number] 11/19/2023 Deacon Bennett Benign non-nodular prostatic hyperplasia with lower urinary tract symptoms N40.1 and Primary hypertension I10 Deacon Bennett DO, [facility] [address] [place], [place] [id number] 12/17/2023 Deacon Donaldmaricruz Bennett DO, [facility] [address] [place], [place] [id number] 12/31/2023 Deacon Bennett DO, [facility] [address] [place], [place] [id number] 12/31/2023 Deacon Donald Deacon Bennett , [facility] [address] [place], [place] [id number] 01/30/2024 Deacon Donald Deacon Bennett DO, [facility] [address] [place], [place] [id number] 04/18/2024 Deacon Donald ASSESSMENTS Encounter Date Diagnosis Assessment Notes Treatment Notes Treatment Clinical Notes 01/29/2024 Vitamin D deficiency (ICD-10 - E55.9) 01/29/2024 Benign prostatic hyperplasia with lower urinary tract symptoms (ICD-10 - N40.1) Doing well. Follow up with Urology 12/05/2023 Benign prostatic hyperplasia with lower urinary tract symptoms (ICD-10 - N40.1) Follow up with Urology 12/05/2023 Primary hypertension (ICD-10 - I10) 07/30/2024 Vitamin D deficiency (ICD-10 - E55.9) 07/30/2024 Benign prostatic hyperplasia with lower urinary tract symptoms (ICD-10 - N40.1) 11/06/2023 Benign non-nodular prostatic hyperplasia with lower urinary tract symptoms (ICD-10 - N40.1) Follow up with Urology 11/06/2023 Primary hypertension (ICD-10 - I10) Low salt diet 11/19/2023 Benign non-nodular prostatic hyperplasia with lower urinary tract symptoms (ICD-10 - N40.1) 11/19/2023 Primary hypertension (ICD-10 - I10) 01/29/2024 Primary hypertension (ICD-10 - I10) Low salt diet 12/05/2023 Vitamin D deficiency (ICD-10 - E55.9) 11/06/2023 Vitamin D deficiency (ICD-10 - E55.9) 01/29/2024 Other obesity due to excess calories (ICD-10 - E66.09) Diet, weight loss 01/29/2024 Encounter for general adult medical examination without abnormal findings (ICD-10 - Z00.00) Stay active PLAN OF TREATMENT Next Appt Details Provider Name:Deacon travis, 10/28/2024 11:30:00 AM, [address] [place] [address], [place], [place], [id number], Insurance Providers Payer Name Payer Address Payer Phone Subscriber Number Group Number Insured Name Patient Relationship to Insured Coverage Start Date Coverage End Date MEDICARE [address] [place] [phone] [id number] Adan Collins Self - patient is the insured MEDEX [address] [place] [address] [phone] [id number] Adan Collins Self - patient is the [...]
== END 2024-10-08 13:25 | disposition home or self-care (01) ==
LOC: HO.LAB 13:24
PROVIDERS: PCP Internal Medicine; Visit Provider Internal Medicine
DX: H81.10 Benign paroxysmal vertigo, unspecified ear (principal); I10 Essential (primary) hypertension
CPT/HCPCS: 99202

== ENCOUNTER 2024-10-08 13:24 | Outpatient (AMB) | payer MEDICARE, SELFPAY ==
--- NOTE | 2024-10-08 13:30 | A.OFFPC_ITS ---
Vital Signs 10/08/24 13:41 Height 4 ft 11.5 in Weight 164 lb BMI 32.6 BP 142/70 H Blood Pressure Location Lt brachial Pulse 77 Pulse Source Pulse Oximeter Temp 97.0 F Pulse Oximetry (%) 98 Intake Visit Reasons: Vertigo Intake Note: would like to discuss allergie consult with you Allergies indomethacin [From INDOCIN] Allergy (Intermediate, Verified 10/08/24 13:36) Confusion Sulfa (Sulfonamide Antibiotics) Allergy (Unknown, Verified 10/08/24 13:36) RASH tamsulosin [Flomax] Adverse Reaction (Unknown, Verified 10/08/24 13:36) swelling [facility] Medical History (Updated 10/08/24 @ 14:11 by Armando Singer MD) Benign positional vertigo Urinary retention with incomplete bladder emptying Hx of peripheral vascular disease Viral pericarditis Diverticulosis Scoliosis BPH (benign prostatic hyperplasia) Other obstructive and reflux uropathy Renal stones History of pulmonary embolism Increased prostate specific antigen (PSA) velocity Surgical History H/O colonoscopy Hx of vasectomy H/O removal of cyst [place] teeth extracted History of tonsillectomy and adenoidectomy Family History Father No problems noted. Mother No problems noted. Brother No problems noted. Daughter No problems noted. Daughter No problems noted. Social History Household Members: Spouse Housing: House Do you presently have visiting nurse or other home services: No Alcohol intake: current Alcohol intake frequency: holidays/special occasions only Patient Tobacco Use Status: Former Tobacco user Tobacco use type: Cigarette Second Hand Smoke Exposure: No service: No Questionnaire Thrive Questionnaire Date Thrive assessed: 11/02/23 Physical exam (Primary Care) Vital Signs: Last Vital Signs Temp 97.0 F 10/08/24 13:41 Pulse 77 10/08/24 13:41 BP 142/70 H 10/08/24 13:41 Pulse Ox 98 10/08/24 13:41 BMI result Body Mass Index 32.6 Tobacco/Smoking Status: Tobacco use Status Patient Tobacco Use Status Former Tobacco user 10/08/24 13:32 Tobacco use type Cigarette 10/08/24 13:32 Thrive Assessment: Date of Thrive Assessment Date Thrive assessed 11/02/23 10/08/24 13:32 Coding Level of Care Code New Pt Level 4 (87224) Complex EM visit Add On G2211 Diagnoses Benign positional vertigo H81.10 Hypertension, unspecified type I10 Hypertension type: unspecified Assessment & Plan Assessment & Plan (1) Benign positional vertigo: Code(s): H81.10 - Benign paroxysmal vertigo, unspecified ear Category: Medical Plan: Continue the Physical therapy that has been scheduled. (2) Hypertension: Code(s): I10 - Essential (primary) hypertension Category: Medical Qualifiers: Hypertension type: unspecified Qualified Code(s): I10 - Essential (primary) hypertension Plan: Blood work has been ordered. Will call with the results Plan History of Present Illness The patient is a 69-year-old male presenting with recent vertigo, which initially manifested in September as a sudden spinning sensation while driving. The vertigo appears positional, and responded to self-administered head movements and chiropractic exercises. Patient is experiencing a few dizzy symptoms since a cold in June that resulted in ongoing ear blockage, presumed allergy-related. The patient has a history of scoliosis, with L4-L5 compression confirmed via MRI. 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 - Engages in daily exercises for piriformis muscle spasms - ; Review of Systems - Ear/Nose/Throat: Reports ear blockage on the right side since a cold in June - Neurological: Reports dizziness with certain head movements and episodes of spinning sensation Physical Exam General: Cooperative and healthy appearing Nutritional Appearance: Well nourished Orientation/consciousness: Patient oriented x3 Limitations: No limitations Head: Normal to inspection General: Appearance normal, both eyes and all related structures Neck: Normal visual inspection Chest: Normal palpation of entire chest wall Respiratory: Normal respiratory effort Neurology: Patient oriented x3 Results Plan Ensure verification and management of positional vertigo, with further investigation of contributing causes from allergies. Monitor and adapt treatment strategies regarding exercise and spinal care given muscle spasms and scoliosis, to mitigate exacerbating factors of vertigo. Verify completed IgE blood testing for potential allergens with follow-up based on results. Patient was informed and verbally consented to the use of an ambient scribe for clinic note documentation during this visit. Discussion Notes I discussed with the patient the nature of the vertigo, likely induced by specific head movements, and related this to physical therapy interventions. We reviewed the potential allergy contribution to the sinus issues and ear blockage persisting from a previous cold. We acknowledged the importance of positioning maneuvers like the Aletha in managing symptoms and considered district manager primary care sales adjustments given spinal history. We addressed follow-up care in allergy testing while ensuring accurate documentation and coding for physical therapy. Patient Instructions - Continue performing the Aletha maneuver as needed if vertigo symptoms recur. - Follow up on the physical therapy appointment to verify positional vertigo and appropriate coding. - Await IgE blood test results for potential allergens and discuss findings. - Avoid head positions that have previously triggered vertigo episodes. - Keep up with prescribed exercises cautiously to avoid aggravating dizziness.
[2024-10-08 13:41] VITALS: BP 142/70; PULSE 77; TEMP 36.1; O2SAT 98; BMI 32.6
--- OUTSIDE RECORDS SUMMARY | 2024-10-08 16:26 | XMS_ITS ---
Author Organization Deacon Bennett DO, FACP Address [address] [place], [place] [phone] Care Team Providers Care Flow Floor Attendant Name Role Phone Deacon Bennett Primary Care [...] Provider Diagnosis Deacon Bennett DO, FACP [address] [place], [place] [phone] 07/30/2024 Deacon Bennett Vitamin D deficiency E55.9 [...] Provider Name:Deacon Evans thaddeus, 10/28/2024 11:30:00 AM, [address] [place] [address], [phone], Progress Notes * Examination Category Sub-Category Detail Notes General Examination GENERAL APPEARANCE: in no ac [place] distress, well developed, well nourished HEAD: normocephalic, atrau matic HEART: no murmurs, regular rate and rhythm, S1, S2 normal LUNGS: clear to auscultatio n bilaterally ABDOMEN: normal, bowel sounds present, soft, nontender, nondistended SKIN: warm and dry EXTREMITIES: no edema PSYCH: alert, oriented, cog nitive function intact
--- OUTSIDE RECORDS SUMMARY | 2024-10-08 16:26 | XMS_ITS ---
Author Organization Deacon Bennett DO, [facility] Address [address] [place], [place] [phone] Care Team Providers Care Vascular Technologist Name Role Phone Deacon Bennett Primary Care Provider REASON FOR VISIT Message Encounters Encounter Location Date Provider Diagnosis Deacon Bennett DO, FACP [address] [place] [phone] 05/21/2024 Deacon Bennett PLAN OF TREATMENT Next Appt Details Provider Name:Deacon travis, 10/28/2024 11:30:00 AM, [address] [place], [place], [phone],
--- OUTSIDE RECORDS SUMMARY | 2024-10-08 16:26 | XMS_ITS ---
Author Organization Deacon Bennett DO [facility] Address [address] [place], [place] [phone] Care Team Providers Care Trading Manager Name Role Phone Deacon Bennett Primary Care Provider REASON FOR VISIT Adan Dennis - Covid infection MEDICATIONS Medication SIG (Take, Route, Frequency, Duration) Notes Start Date End Date Status Paxlovid (300/100) 20 x 150 MG & 10 x 100MG 3 tablets Orally Twice a day for 5 days 04/18/2024 Active Encounters Encounter Location Date Provider Diagnosis Deacon Bennett DO, FACP [address] [place] [phone] 04/18/2024 Deacon Bennett PLAN OF TREATMENT Medication Medication Name Sig Start Date Stop Date Notes Paxlovid (300/100) 20 x 150 MG & 10 x 100MG 3 tablets Orally Twice a day for 5 days 04/18/2024 Next Appt Details Provider Name:Deacon travis, 10/28/2024 11:30:00 AM, [address] [place], [place], [phone],
== END 2024-10-08 14:10 | disposition home or self-care (01) ==
LOC: HO.HMCSH 13:24
PROVIDERS: PCP Internal Medicine; Visit Provider Internal Medicine
DX: H81.10 Benign paroxysmal vertigo, unspecified ear (principal); I10 Essential (primary) hypertension

== ENCOUNTER 2024-10-09 09:02 | Outpatient (RCR) | payer MEDICARE, SELFPAY ==
[2024-10-09 13:32] VITALS: BP 140/78; PULSE 67; O2SAT 98
--- NOTE | 2024-10-09 15:14 | MHC.PT.EP ---
[facility] [place] [facility] [place] [facility] [place] [facility] [address] Max Vanegas [address] [phone] F: [phone] F: [phone] F: [phone] F: [phone] Physical Therapy Plan of Care Date of Evaluation: 10/09/24 Date of Surgery: Diagnosis: PT eval and treat; Benign paroxysmal vertigo, unspecified ear date of script 10/09/24 Dr. Singer Assessment: Pt is a 69 y/o male with PMH significant for Benign positional vertigo Urinary retention with incomplete bladder emptying Hx of peripheral vascular disease Viral pericarditis Diverticulosis Scoliosis BPH (benign prostatic hyperplasia) Other obstructive and reflux uropathy Renal stones History of pulmonary embolism Increased prostate specific antigen (PSA) velocity H/O colonoscopy Hx of vasectomy H/O removal of cyst [place] teeth extracted History of tonsillectomy and adenoidectomy , referred to PT from Armando Singer MD on 10/09/24 for treatment of Benign paroxsymal positional vertigo, unspecified ear: H81.10. Pt reports history of bad head cold in July, onset of vertigo sx which began in early September. Pt was seen by new PCP yesterday, admits to performing self corrective R Aletha after (+) self testing of R hallpike testing at home on 09/16/24; pt states no sx since 09/17/24. Pt states he is hoping to see if he will test positive today and hopes learn guidance for self management. Pt exhibits negative Hallpike testing L>R this date, no nystagmus noted, normal oculomotor screen, negative neuro screen, and SLS ~grossly five seconds on each side. He verbalizes some mild guarding with daily movements and modification head movements for hip hip stretches. He has been encouraged to establish a daily walking program and integrate return to regular exercise. He was educated re: negative screen Bang-pike/ BPPV this date. Therapist addressed patient questions at this time. Pt was educated he does not appear to require further therapy at this time based on negative testing this date. Frequency and Duration: The patient will be seen 0x/week Short Term Goals: No further therapy is indicated at this time. Retirement Goals: No further therapy is indicated at this time. Treatment Plan: Modalities to reduce pain, spasms and effusion. Manual therapy to restore motion and function. Therapeutic exercise to improve strength and flexibility. Neuromuscular re-education for posture and balance. Therapeutic activities to return to functional activities of daily living. Electronically signed by: Marya Cantu PT, DPT Please sign and return to therapist. Thank you for your referral.
== END 2025-05-07 15:08 | disposition home or self-care (01) ==
LOC: HO.PTWFD 09:02
PROVIDERS: PCP Internal Medicine; Visit Provider Internal Medicine
DX: H81.10 Benign paroxysmal vertigo, unspecified ear (principal)
CPT/HCPCS: 97162; 97535

== ENCOUNTER 2024-10-14 09:36 | Outpatient (REF) | payer MEDICARE, SELFPAY ==
[2024-10-14 11:00] LABS: Hematocrit 47.8 % (42.0-52.0); Hemoglobin 16.8 g/dl (14.0-18.0); Mean Corpuscular HGB Conc 35.1 g/dl (31.0-36.0); Mean Corpuscular Hemoglobin 30.4 pg (27.0-33.0); Mean Corpuscular Volume 86.4 fL (80.0-98.0); Mean Platelet Volume 10.1 fL (9.4-12.4); Platelet Count 196 X10*3/uL (160-400); Red Blood Count 5.53 X10*6/uL (4.60-5.80); Red Cell Distribution Width 13.2 % (11.0-16.0); White Blood Count 6.4 X10*3/uL (4.8-10.8)
[2024-10-14 11:12] LABS: Appearance Urine Clear; Color Urine Yellow; Glucose Urine UA Negative (Negative); Leukocyte Esterase Urine Trace (Negative); Nitrite Urine Negative (Negative); Specific Gravity - Urine 1.015 (1.005-1.025); UMIC TRIGGER UA YES; Urine Blood Negative (Negative); Urine Ketones Negative (Negative); Urine Protein Negative (Neg-Trace)
[2024-10-14 11:17] LABS: Bacteria Urine None Seen (None Seen); Hyaline Casts Urine 0-2 /LPF (0-2); RBC Urine 0-2 /HPF (0-2); Squamous Epithelial Cell Urine 0-2 /HPF (0-2); WBC Urine 0-5 /HPF (0-5)
[2024-10-14 11:34] LABS: Alanine Aminotransferase 24 U/L (0-40); Albumin Level 4.3 g/dL (3.5-5.0); Alkaline Phosphatase 63 U/L (39-117); Anion Gap 11 (12-20); Aspartate Amino Transferase 23 U/L (5-37); Bilirubin Direct 0.3 mg/dL (0.0-0.5); Bilirubin Total 1.5 mg/dL (0.0-1.0); Blood Urea Nitrogen 14 mg/dL (9-16); Carbon Dioxide 27 mmol/L (22-29); Chloride 106 mmol/L (96-108); Cholesterol 158 mg/dL (<200); Estimated Glomerular Filt Rate > 60; Glucose Random 85 mg/dL (60-115); HDL Cholesterol 49 mg/dL (>40); LDL Cholesterol Calculated 93 mg/dL (<100); Sodium 140 mmol/L (135-145); Total Protein 7.3 g/dL (6.5-8.0); Triglycerides 83 mg/dL (<150)
[2024-10-14 11:50] LABS: Thyroid Stimulating Hormone 1.97 uIU/mL (0.32-4.0)
== END 2024-10-14 09:37 | disposition home or self-care (01) ==
LOC: HO.LAB 09:36
PROVIDERS: PCP Internal Medicine; Visit Provider Internal Medicine
DX: I10 Essential (primary) hypertension (principal); H81.10 Benign paroxysmal vertigo, unspecified ear
CPT/HCPCS: 36415; 80048; 80061; 80076; 81001; 84443; 85027

== ENCOUNTER 2024-12-30 09:37 | Outpatient (AMB) | payer MEDICARE, SELFPAY ==
[2024-12-30 09:39] VITALS: BP 141/78; PULSE 84; RESP 14; TEMP 37.1; O2SAT 97; BMI 31.8
--- NOTE | 2024-12-30 09:39 | A.OFFPC_ITS ---
Vital Signs 12/30/24 09:39 Height 4 ft 11.5 in Weight 160 lb BMI 31.8 BP 141/78 H Respiration 14 Pulse 84 Pulse Source Pulse Oximeter Temp 98.7 F Temp Source Temporal Artery Scan Pulse Oximetry (%) 97 Oxygen Delivery Method Room Air Intake Visit Reasons: 3 month f/u Laboratory Worker Required: No Accompanied by: Self / Same As Patient Allergies indomethacin [From INDOCIN] Allergy (Intermediate, Verified 12/30/24 09:39) Confusion Sulfa (Sulfonamide Antibiotics) Allergy (Unknown, Verified 12/30/24 09:39) RASH tamsulosin [Flomax] Adverse Reaction (Unknown, Verified 12/30/24 09:39) swelling Tobacco use date assessed: 12/30/24 Fall risk assessment: No Falls in past year Last assessed Fall Risk: 12/30/24 Dental Screening Dental Screen Date: 12/30/24 Did you have a dental visit in the last 12 months?: Yes Did you have a dental problem in the last 6 months where you did not have access to dental care?: No Was dental information given to patient?: Patient has dentist [facility] Medical History Benign positional vertigo Urinary retention with incomplete bladder emptying Hx of peripheral vascular disease Viral pericarditis Diverticulosis Scoliosis BPH (benign prostatic hyperplasia) Other obstructive and reflux uropathy Renal stones History of pulmonary embolism Increased prostate specific antigen (PSA) velocity Surgical History H/O colonoscopy (~09/15/22) Hx of vasectomy H/O removal of cyst [place] teeth extracted History of tonsillectomy and adenoidectomy Family History Father No problems noted. Mother No problems noted. Brother No problems noted. Daughter No problems noted. Daughter No problems noted. Social History (Updated 12/30/24 @ 09:49 by EFRAIN Ng) Household Members: Spouse Housing: House Do you presently have visiting nurse or other home services: No Alcohol intake: current Alcohol intake frequency: a few times a week Patient Tobacco Use Status: Former Tobacco user Tobacco use type: Cigarette Second Hand Smoke Exposure: No service: No Current occupational status: retired Cognitive needs: No Hearing needs: No Vision needs: Yes (rx glasses) Questionnaire PHQ-9 Over the last 2 weeks, how often have you been bothered by any of the following problems? 1. Little interest or pleasure in doing things: not at all 2. Feeling down, depressed, or hopeless: not at all 3. Trouble falling or staying asleep, or sleeping too much: not at all 4. Feeling tired or having little energy: not at all 5. Poor appetite or overeating: not at all 6. Feeling bad about yourself - or that you are a failure or have let yourself or your family down: not at all 7. Trouble concentrating on things, such as reading the newspaper or watching television: not at all 8. Moving or speaking so slowly that other people could have noticed. Or the opposite - being so fidgety or restless that you have been moving around a lot more than usual: not at all 9. Thoughts that you would be better off or of hurting yourself in some way: not at all Total score: 0 Source: Developed by Drs. Deacon Amos, Analilia Hough, Kenan monteiro nd colleagues, with an educational jamison from [employer] Thrive Questionnaire Date Thrive assessed: 12/30/24 AUDIT C Alcohol Use Questionnaire (AUDIT-C) 1. How often do you have a drink containing alcohol?: 2-3 times a week 2. How many drinks containing alcohol do you have on a typical day when you are drinking?: 1 or 2 3. How often do you have six or more drinks on one occasion?: Never Total Score: 3 SARAH-7 AMB Questionnaire SARAH-7 Date SARAH - 7 assessed: 12/30/24 Feeling nervous, anxious, or on edge: 0 = Not at all Not being able to stop or control worryin = Not at all Worrying too much about different things: 0 = Not at all Trouble relaxin = Not at all Being so restless that it is hard to sit still: 0 = Not at all Becoming easily annoyed or irritable: 0 = Not at all Feeling afraid as if something awful might happen: 0 = Not at all Total SARAH-7 score (0-4 normal; 5-9 mild; 10-14 moderate; 15-21 severe): 0 Source: Developed by Drs. Deacon Amos, Analilia Hough, Kenan James and colleagues, with an educational jamison from [employer] Physical exam (Primary Care) Vital Signs: Last Vital Signs Temp 98.7 F 12/30/24 09:39 Pulse 84 12/30/24 09:39 Resp 14 12/30/24 09:39 BP 141/78 H 12/30/24 09:39 Pulse Ox 97 12/30/24 09:39 Oxygen Delivery Method Room Air 12/30/24 09:39 BMI result Body Mass Index 31.8 Tobacco/Smoking Status: Tobacco use Status Tobacco use date assessed 12/30/24 12/30/24 09:41 Patient Tobacco Use Status Former Tobacco user 12/30/24 09:49 Tobacco use type Cigarette 12/30/24 09:49 PHQ-9: PHQ-9 Score PHQ-9: Total score 0 12/30/24 09:41 Thrive Assessment: Date of Thrive Assessment Date Thrive assessed 12/30/24 12/30/24 09:41 Coding Level of Care Code Est Pt Level 4 (68016) Complex EM visit Add On G2211 Diagnoses Hypertension, unspecified type I10 Hypertension type: unspecified Assessment & Plan Assessment & Plan (1) Hypertension: Code(s): I10 - Essential (primary) hypertension Category: Medical Qualifiers: Hypertension type: unspecified Qualified Code(s): I10 - Essential (primary) hypertension Plan: History of Present Illness The patient is a 69-year-old male presenting with recent vertigo, which initially manifested in September as a sudden spinning sensation while driving. The vertigo appears positional, and responded to self-administered head movements and chiropractic exercises. Patient is experiencing a few dizzy symptoms since a cold in June that resulted in ongoing ear blockage, presumed allergy-related. The patient has a history of scoliosis, with L4-L5 compression confirmed via MRI. 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 - Engages in daily exercises for piriformis muscle spasms - ; Review of Systems - Ear/Nose/Throat: Reports ear blockage on the right side since a cold in June - Neurological: Reports dizziness with certain head movements and episodes of spinning sensation Physical Exam General: Cooperative and healthy appearing Nutritional Appearance: Well nourished Orientation/consciousness: Patient oriented x3 Limitations: No limitations Head: Normal to inspection General: Appearance normal, both eyes and all related structures Neck: Normal visual inspection Chest: Normal palpation of entire chest wall Respiratory: Normal respiratory effort Neurology: Patient oriented x3 Results Plan Ensure verification and management of positional vertigo, with further investigation of contributing causes from allergies. Monitor and adapt treatment strategies regarding exercise and spinal care given muscle spasms and scoliosis, to mitigate exacerbating factors of vertigo. Verify completed IgE blood testing for potential allergens with follow-up based on results. Patient was informed and verbally consented to the use of an ambient scribe for clinic note documentation during this visit. Discussion Notes I discussed with the patient the nature of the vertigo, likely induced by specific head movements, and related this to physical therapy interventions. We reviewed the potential allergy contribution to the sinus issues and ear blockage persisting from a previous cold. We acknowledged the importance of positioning maneuvers like the Aletha in managing symptoms and considered intensive care specialist adjustments given spinal history. We addressed follow-up care in allergy testing while ensuring accurate documentation and coding for physical therapy. Patient Instructions - Continue performing the Aletha maneuver as needed if vertigo symptoms recur. - Follow up on the physical therapy appointment to verify positional vertigo and appropriate coding. - Await IgE blood test results for potential allergens and discuss findings. - Avoid head positions that have previously triggered vertigo episodes. - Keep up with prescribed exercises cautiously to avoid aggravating dizziness.
== END 2024-12-30 10:07 | disposition home or self-care (01) ==
LOC: HO.HMCSH 09:37
PROVIDERS: PCP Internal Medicine; Visit Provider Internal Medicine
DX: I10 Essential (primary) hypertension (principal)

== ENCOUNTER → 2024-12-30 09:37 | Outpatient (BNVA) | payer MEDICARE, SELFPAY | PROVIDERS: PCP Internal Medicine; Visit Provider Internal Medicine | DX: I10 Essential (primary) hypertension (principal) | CPT/HCPCS: 99212 ==

== ENCOUNTER 2025-01-13 08:34 | Outpatient (AMB) | payer MEDICARE, SELFPAY ==
--- NOTE | 2025-01-13 08:34 | A.OFFVIS_ITS ---
Intake Visit Reasons: 6M follow up labs Intake Note: Patient is present for 6M F/U Urology Medication:NONE Antibiotic Allergy:SULFA Blood Thinner:NONE Roll Operator Required: No Allergies indomethacin [From INDOCIN] Allergy (Intermediate, Verified 01/13/25 08:35) Confusion Sulfa (Sulfonamide Antibiotics) Allergy (Unknown, Verified 01/13/25 08:35) RASH tamsulosin [Flomax] Adverse Reaction (Unknown, Verified 01/13/25 08:35) swelling HPI Comments Details: Adan is a very pleasant male. He is a patient of Dr. Bennett. He is seen for following urologic conditions. - lower urinary tract symptoms - nephrolithiasis - urinary retention Six-month follow-up GreenLight laser UA normal PVR 160 cc Discussed testosterone result normal for age Reinforced need to perform strength exercises Continue yearly evaluation 11/03 Hospital admission - 1600 cc in the bladder Found to bilateral hydronephrosis and elevated creatinine Singh catheter placed - Hydroureteronephrosis started to resolve and creatinine found to fall from 5-1.8 prior to discharge Cr 12/04 1.2 Recent MRI on spine shows scoliosis with compression in the L3 through L5 range. Is back undergoing chiropractic manipulation with some improvement in bladder emptying. Lower urinary tract symptoms Longstanding management Previous prostate procedures Had Botox to prostate 2014 - for urge/frequency, prior rapaflo usage Has a consistently high bladder residual PVR 03/02 700, 09/03 750 PSA 01/30 2.9, 12/31 3.2, 04/03 3.0, 09/06 3.1 T 430 Nephrolithiasis previously renal cyst on ultrasound Imaging - 08/02 renal ultrasound left cyst 1.5 cm continue surveillance [facility] Medical History Benign positional vertigo Urinary retention with incomplete bladder emptying Hx of peripheral vascular disease Viral pericarditis Diverticulosis Scoliosis BPH (benign prostatic hyperplasia) Other obstructive and reflux uropathy Renal stones History of pulmonary embolism Increased prostate specific antigen (PSA) velocity Surgical History H/O colonoscopy (~09/15/22) Hx of vasectomy H/O removal of cyst [place] teeth extracted History of tonsillectomy and adenoidectomy Family History Father No problems noted. Mother No problems noted. Brother No problems noted. Daughter No problems noted. Daughter No problems noted. Social History (Updated 12/30/24 @ 09:49 by EFRAIN Ng) Household Members: Spouse Housing: House Do you presently have visiting nurse or other home services: No Alcohol intake: current Alcohol intake frequency: a few times a week Patient Tobacco Use Status: Former Tobacco user Tobacco use type: Cigarette Second Hand Smoke Exposure: No service: No Current occupational status: retired Cognitive needs: No Hearing needs: No Vision needs: Yes (rx glasses) Review of Systems Const Denies chills and Denies fever(s) Card Reports no additional complaints and Denies syncope Resp Denies cough GI Denies abdominal pain and Denies heartburn Reports as per HPI and Denies change in libido Neuro Denies syncope Psych Denies change in libido Endo Denies change in libido Physical Exam Const General: cooperative, healthy appearing, comfortable and no acute distress Orientation/consciousness: patient oriented x3 HEENT Face and sinus: Yes normal facial exam Mouth: moist mucous membranes Neck Neck: Yes normal visual inspection, Yes full ROM and Yes trachea midline Chest Chest palpation & inspection: normal inspection of the chest Resp Effort & Inspection: normal respiratory effort, able to speak in complete sentences and no respiratory distress GI Inspection: Yes normal to inspection Back/Spine/Pelvis Cervical Spine: normal cervical lordosis Thoracic/Lumbar Spine: thoracic and lumbar spine normal to inspection Skin General skin exam: no rashes or lesions noted Neuro General: patient oriented x3, gait normal, tone normal and moves all extremities Extrem General: Yes normal to inspection and Yes capillary refill normal Results AMB Urinalysis, Automated UA Leukoctes 0 Rocio/uL Last Edit by YUMIKO Raza on 01/13/25 08:44 UA Nitrite Negative Last Edit by YUMIKO Raza on 01/13/25 08:44 UA Urobilinogen 0.2 mg/dL Last Edit by YUMIKO Raza on 01/13/25 08:4 4 UA Protein 0 mg/dL Last Edit by YUMIKO Raza on 01/13/25 08:44 UA pH 6.0 Last Edit by YUMIKO Raza on 01/13/25 08:44 UA Blood 0 Adilson/uL Last Edit by YUMIKO Raza on 01/13/25 08:44 UA Specific Tyler 1.015 Last Edit by YUMIKO Raza on 01/13/25 08: 44 UA Ketone Negative Last Edit by YUMIKO Raza on 01/13/25 08:44 UA Bilirubin 0 mg/dL Last Edit by YUMIKO Raza on 01/13/25 08:44 UA Glucose 0 mg/dL Last Edit by YUMIKO Raza on 01/13/25 08:44 Assessment & Plan Assessment & Plan (1) Urinary retention with incomplete bladder emptying: Code(s): R33.9 - Retention of urine, unspecified Category: Medical (2) Urinary tract infection: Code(s): N39.0 - Urinary tract infection, site not specified Category: Medical (3) Low libido: Code(s): R68.82 - Decreased libido Category: Medical Plan 12 month follow-up PSA Orders: Orders AMB Urinalysis Automated Today Z13.9 - Encounter for screening, unspecified Prostate Specific Antigen 12 Months R33.9 - Retention of urine, unspecified Patient Instructions: This note is constructed using voice recognition software. While every effort has been made to ensure accuracy centrifugal supervisor errors may have been included. Imaging studies, laboratory and physical exam results were discussed and reviewed in detail. No major barriers to patient understanding were identified. An opportunity to ask questions regarding the treatment plan was provided. All questions were answered. The patient expressed understanding and agreement with the above treatment plan. The patient is aware they should contact our office by phone for worsening of their current condition or the appearance of new urologic symptoms. Compliance is encouraged with any medications and followup testing that is ordered. It is a privilege to participate in the urologic care of your patient. If you have any questions or concerns regarding treatment for the above conditions, or other urologic issues, please do not hesitate to contact me. The office telephone contact is [phone]. Sincerely, Dr Fernando Oconnor MD, [facility] - Urology Compassionate Specialist Care for the Genitourinary System Coding Level of Care Code Est Pt Level 3 (12404) Complex EM visit Add On G2211 Diagnoses Urinary retention with incomplete bladder emptying R33.9 Urinary tract infection N39.0 Low libido R68.82
== END 2025-01-13 09:04 | disposition home or self-care (01) ==
PROVIDERS: PCP Internal Medicine; Visit Provider Urology
DX: R33.9 Retention of urine, unspecified (principal); N39.0 Urinary tract infection, site not specified; R68.82 Decreased libido; Z13.9 Encounter for screening, unspecified
CPT/HCPCS: 99213; G2211

== ENCOUNTER → 2025-01-13 08:34 | Outpatient (BNVA) | payer MEDICARE, SELFPAY | PROVIDERS: PCP Internal Medicine; Visit Provider Urology | DX: R33.9 Retention of urine, unspecified (principal); N39.0 Urinary tract infection, site not specified; R68.82 Decreased libido; Z87.442 Personal history of urinary calculi | CPT/HCPCS: 81003; 99212 ==

== ENCOUNTER 2025-06-30 09:38 | Outpatient (AMB) | payer MEDICARE, SELFPAY ==
[2025-06-30 09:37] VITALS: BP 140/67; PULSE 78; RESP 16; TEMP 36.4; O2SAT 97; BMI 32.2
--- NOTE | 2025-06-30 09:37 | A.OFFPC_ITS ---
Vital Signs 06/30/25 09:37 Height 4 ft 11.5 in Weight 162 lb BMI 32.2 BP 140/67 H Blood Pressure Location Lt brachial Position Sitting Respiration 16 Pulse 78 Pulse Source Pulse Oximeter Temp 97.6 F Temp Source Temporal Artery Scan Pulse Oximetry (%) 97 Oxygen Delivery Method Room Air Intake Visit Reasons: 6 month f/u Benefits Specialist Required: No Accompanied by: Self / Same As Patient Allergies indomethacin (From INDOCIN) Allergy (Intermediate, Verified 06/30/25 09:37) Confusion Sulfa (Sulfonamide Antibiotics) Allergy (Unknown, Verified 06/30/25 09:37) RASH tamsulosin (Flomax) Adverse Reaction (Unknown, Verified 06/30/25 09:37) swelling Tobacco use date assessed: 12/30/24 Dental Screening Dental Screen Date: 12/30/24 HPI HPI Comments History of Present Illness Details History of Present Illness - The patient is a 70-year-old male pres enting for a general health follow-up. - The patient has a small umbilical migdalia ia that he would like repaired by a surgeon, Dr. Delvalle, but wants to lose weight first before scheduling the procedure. - He reports his vertigo has resolved, a nd he manages it by being conscious of head movements and performing stretches before getting out of bed. - He had a referral for physical therapy for vertigo, where a test for BPPV was negative, which he attributes to having self-treated before the appointment. - He has ongoing issues with allergies, a new problem since having COVID, which cause congestion. - He takes Cecilia for a few days when s ymptoms occur, which helps them subside. - He has a history of kidney stones sinc e the late and takes magnesium glycinate 125 mg daily for prevention. - He notes that on several occasions whe n he stopped taking the supplement, he developed a kidney stone, including one that required surgical removal in 2011. - His last colonoscopy was in 2022, and the home decorator recommended a repeat screening in 3 years. - He has received his flu shot. - Blood work was last completed in October , and the results were normal. Social History - Employment: The patient is semi-retire d. 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 Results - Labs: Blood work from October was review ed and noted to be okay. - Procedures: Last colonoscopy was in . [facility] Medical History Benign positional vertigo Urinary retention with incomplete bladder emptying Hx of peripheral vascular disease Viral pericarditis Diverticulosis Scoliosis BPH (benign prostatic hyperplasia) Other obstructive and reflux uropathy Renal stones History of pulmonary embolism Increased prostate specific antigen (PSA) velocity Surgical History H/O colonoscopy (~09/15/22) Hx of vasectomy H/O removal of cyst [place] teeth extracted History of tonsillectomy and adenoidectomy Family History Father No problems noted. Mother No problems noted. Brother No problems noted. Daughter No problems noted. Daughter No problems noted. Social History Household Members: Spouse Housing: House Do you presently have visiting nurse or other home services: No Alcohol intake: current Alcohol intake frequency: a few times a week Patient Tobacco Use Status: Former Tobacco user Tobacco use type: Cigarette Second Hand Smoke Exposure: No service: No Current occupational status: retired Cognitive needs: No Hearing needs: No Vision needs: Yes (rx glasses) Questionnaire PHQ-9 Over the last 2 weeks, how often have you been bothered by any of the following problems? 1. Little interest or pleasure in doing things: not at all 2. Feeling down, depressed, or hopeless: not at all 3. Trouble falling or staying asleep, or sleeping too much: not at all 4. Feeling tired or having little energy: not at all 5. Poor appetite or overeating: not at all 6. Feeling bad about yourself - or that you are a failure or have let yourself or your family down: not at all 7. Trouble concentrating on things, such as reading the newspaper or watching television: not at all 8. Moving or speaking so slowly that other people could have noticed. Or the opposite - being so fidgety or restless that you have been moving around a lot more than usual: not at all 9. Thoughts that you would be better off or of hurting yourself in some way: not at all Total score: 0 Source: Developed by Drs. Deacon Amos, Analilia Hough, Kenan James and colleagues, with an educational jamison from [employer]. Thrive Questionnaire Date Thrive assessed: 12/30/24 I am a: Patient What is your living situation today?: I have a steady place to live Within the past 12 months, did the food you bought not last and you didn't have the money to get more?: Never true Within the past 12 months, did you worry whether your food would run out before you got money to buy more?: Never true Do you have trouble paying for medicines?: No Do you have trouble getting transportation to medical appointments?: No Do you have trouble paying your heating and electricity bill?: No Do you have trouble taking care of your child, family member or friend?: No Do you have trouble with day-to-day activities such as bathing, preparing meals, shopping, managing finances, etc.?: No Are you currently unemployed and looking for a job?: No Are you interested in more education?: No Please select the resources that you would like help with: None THRIVE Score: 0 AUDIT C Alcohol Use Questionnaire (AUDIT-C) 1. How often do you have a drink containing alcohol?: 2-3 times a week 2. How many drinks containing alcohol do you have on a typical day when you are drinking?: 1 or 2 3. How often do you have six or more drinks on one occasion?: Never Total Score: 3 SARAH-7 AMB Questionnaire SARAH-7 Date SARAH - 7 assessed: 12/30/24 Feeling nervous, anxious, or on edge: 0 = Not at all Not being able to stop or control worryin = Not at all Worrying too much about different things: 0 = Not at all Trouble relaxin = Not at all Being so restless that it is hard to sit still: 0 = Not at all Becoming easily annoyed or irritable: 0 = Not at all Feeling afraid as if something awful might happen: 0 = Not at all Total SARAH-7 score (0-4 normal; 5-9 mild; 10-14 moderate; 15-21 severe): 0 Source: Developed by Drs. Deacon Amos, Analilia Hough, Kenan James and colleagues, with an educational jamison from [employer]. Review of Systems Narrative Review of Systems - HEENT: Reports occasional nasal congestion since having COVID, which improves with intermittent use of Cecilia. - Neurological: Denies current vertigo. Physical exam (Primary Care) Vital Signs: Last Vital Signs Temp 97.6 F 06/30/25 09:37 Pulse 78 06/30/25 09:37 Resp 16 06/30/25 09:37 BP 140/67 H 06/30/25 09:37 Pulse Ox 97 06/30/25 09:37 Oxygen Delivery Method Room Air 06/30/25 09:37 BMI result Body Mass Index 32.2 Tobacco/Smoking Status: Tobacco use Status Tobacco use date assessed 12/30/24 06/30/25 09:38 Patient Tobacco Use Status Former Tobacco user 06/30/25 09:38 Tobacco use type Cigarette 06/30/25 09:38 PHQ-9: PHQ-9 Score PHQ-9: Total score 0 06/30/25 10:14 Thrive Assessment: Date of Thrive Assessment Date Thrive assessed 12/30/24 06/30/25 09:38 Narrative Physical Exam General: Cooperative and healthy appearing Nutritional Appearance: Well nourished Orientation/consciousness: Patient oriented x3 Limitations: No limitations Head: Normal to inspection General: Appearance normal, both eyes and all related structures Neck: Normal visual inspection Chest: Normal palpation of entire chest wall Respiratory: Normal respiratory effort Neurology: Patient oriented x3 Coding Level of Care Code Est Pt Level 4 (89730) Complex EM visit Add On G2211 Diagnoses Allergic rhinitis J30.9 Assessment & Plan Assessment & Plan (1) Allergic rhinitis: Code(s): J30.9 - Allergic rhinitis, unspecified Plan Plan - Umbilical Hernia: The patient will schedule an elective surgical repair when he decides to proceed. - Weight Management: The patient is encouraged to lose weight, which may also reduce pressure on the hernia post-repair. - Allergic Rhinitis: Continue using Cecilia as needed for symptoms. - Nephrolithiasis Prevention: Continue taking magnesium glycinate 125 mg daily. - Blood Pressure: Continue to monitor blood pressure at home. - Health Maintenance: Repeat blood work next year. - Follow-up: Return to the clinic in 6 months. Discussion Notes I reviewed the patient's overall health status, which is good. His blood work from October was fine, and we can plan to repeat it next year. We discussed that he is up to date on his flu shot. Regarding the umbilical hernia, the repair will happen when he decides to schedule it. We also addressed the slightly elevated office blood pressure reading of 140/67 mmHg, and since his home readings are normal, we agreed to continue monitoring it at home. A follow-up visit is scheduled for six months. Patient Instructions - You can schedule the surgery for your umbilical hernia when you are ready. - Consider losing some weight before the hernia surgery, as it may help with recovery. - Continue to take Cecilia when you have allergy symptoms like a stuffy nose. - Keep taking your magnesium supplement every day to prevent kidney stones. - Continue checking your blood pressure at home. - Your next colonoscopy is due in three years. - Please return for a follow-up appointment in 6 months. Orders: Referrals Allergy & Immunology Referral J30.9 - Allergic rhinitis, unspecified
== END 2025-06-30 10:12 | disposition home or self-care (01) ==
LOC: HO.HMCSH 09:38
PROVIDERS: PCP Internal Medicine; Visit Provider Internal Medicine
DX: J30.9 Allergic rhinitis, unspecified (principal)

== ENCOUNTER → 2025-06-30 09:38 | Outpatient (BNVA) | payer MEDICARE, SELFPAY | PROVIDERS: PCP Internal Medicine; Visit Provider Internal Medicine | DX: J30.9 Allergic rhinitis, unspecified (principal) | CPT/HCPCS: 99212 ==